=== PATIENT | female | born 1965 | race Caucasian/White ===

== ENCOUNTER → 2019-08-22 14:05 | Outpatient (BNVA) | payer SELFPAY | PROVIDERS: Family Provider Family Medicine; PCP Family Medicine; Visit Provider Family Medicine | DX: F41.8 Other specified anxiety disorders (principal); R19.7 Diarrhea, unspecified | CPT/HCPCS: 87493; G0328 ==

== ENCOUNTER → 2020-12-14 15:31 | Outpatient (BNVA) | payer MEDICARE, SELFPAY | PROVIDERS: Family Provider Family Medicine; PCP Family Medicine; Visit Provider Family Medicine | DX: J44.9 Chronic obstructive pulmonary disease, unspecified (principal); F41.8 Other specified anxiety disorders; R07.9 Chest pain, unspecified | CPT/HCPCS: 80053; 80061; 84439; 84443; 85025 ==

== ENCOUNTER → 2022-03-04 10:44 | Outpatient (BNVA) | payer MEDICARE, SELFPAY | PROVIDERS: Family Provider Family Medicine; PCP Family Medicine; Visit Provider Podiatrist Foot & Ankle Surgery | DX: L60.0 Ingrowing nail (principal) | CPT/HCPCS: 11721; 99203 ==

== ENCOUNTER 2022-07-06 06:00 | Outpatient (RCR) | payer MEDICARE, SELFPAY | END 2022-07-15 23:59 | disposition home or self-care (01) | LOC: GPT 06:00 | PROVIDERS: Family Provider Family Medicine; PCP Family Medicine; Visit Provider Family Medicine | DX: F45.41 Pain disorder exclusively related to psychological factors (principal) | CPT/HCPCS: 97110; 97140; 97162 ==

== ENCOUNTER → 2022-07-18 10:46 | Outpatient (BNVA) | payer MEDICARE, SELFPAY | PROVIDERS: Family Provider Family Medicine; PCP Family Medicine; Visit Provider Family Medicine | DX: J44.9 Chronic obstructive pulmonary disease, unspecified (principal); R07.9 Chest pain, unspecified | CPT/HCPCS: 80053; 80061; 85025 ==

== ENCOUNTER 2022-09-15 06:12 | Outpatient (CLI) | payer MEDICARE, SELFPAY ==
--- NOTE | 2022-09-15 06:30 | US_ITS ---
WS: [id number] Complete ABDOMINAL ULTRASOUND HISTORY: R74.8 - Abnormal levels of other serum enzymes COMPARISON: None available. Liver: 15.8 cm in length. Mild coarse echotexture. No mass or bile duct dilatation. Portal Vein: Normal hepatopetal flow with monophasic waveform. Gallbladder: Normally distended gallbladder with no stones or wall thickening. CBD: 0.3 cm Pancreas: Obscured by bowel gas. Right kidney: 10.0 cm x 4.6 x 4.9 cm. Cortex:0.9 cm. Normal size and echogenicity. No hydronephrosis or mass. Left kidney: 10.2 cm x 5.4 cm x 3.9 cm. Cortex: 1.1 cm. Normal size and echogenicity. No hydronephrosis or mass. Spleen: Normal size spleen. Aorta and IVC: Aorta and IVC are poorly visualized due to body habitus and patient short of breath. US/US abdomen complete* [id number] Impression: 1. Negative gallbladder. 2. Mild hepatic steatosis. 3. No renal obstruction. 4. Nonvisualization of the pancreas.
== END 2022-09-15 06:13 | disposition home or self-care (01) ==
PROVIDERS: PCP Family Medicine; Visit Provider Family Medicine
DX: R74.8 Abnormal levels of other serum enzymes (principal); K76.0 Fatty (change of) liver, not elsewhere classified
CPT/HCPCS: 76700

== ENCOUNTER → 2023-01-18 16:41 | Outpatient (BNVA) | payer MEDICARE, SELFPAY | PROVIDERS: PCP Family Medicine; Visit Provider Family Medicine | DX: K70.0 Alcoholic fatty liver (principal); R74.8 Abnormal levels of other serum enzymes; F41.8 Other specified anxiety disorders; J44.9 Chronic obstructive pulmonary disease, unspecified | CPT/HCPCS: 80053 ==

== ENCOUNTER → 2023-06-13 13:21 | Outpatient (BNVA) | payer MEDICARE, SELFPAY | PROVIDERS: PCP Family Medicine; Referring Provider Family Medicine; Visit Provider Internal Medicine | DX: R07.9 Chest pain, unspecified (principal); I25.10 Atherosclerotic heart disease of native coronary artery without angina pectoris; I73.9 Peripheral vascular disease, unspecified; J44.9 Chronic obstructive pulmonary disease, unspecified; F41.8 Other specified anxiety disorders; F17.200 Nicotine dependence, unspecified, uncomplicated; R94.31 Abnormal electrocardiogram [ECG] [EKG] | CPT/HCPCS: 93005; 99204 ==

== ENCOUNTER 2023-06-21 10:33 | Outpatient (CLI) | payer MEDICARE, SELFPAY ==
[2023-06-21 10:42] VITALS: BMI 28.1
--- NOTE | 2023-06-21 10:43 | ECG_ITS ---
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 Interpretive Statements NAME OF STUDY: LEXISCAN SESTAMIBI STRESS TEST INDICATION: [Chest Pain; CHF] Patient could not reach her target heart rate on treadmill and exercise MIBI was switched to Lexiscan. Procedure: At the baseline, the blood pressure was 121/67 mmHg with a heart rate of 75 bpm. The electrocardiogram showed normal sinus rhythm, normal axis with normal ST and T's. The Lexiscan was infused over a period of 20 seconds. A total of 0.4 mg of Lexiscan was infused. The stress phase was continued for a total of 5 minutes. Heart rate was at the end of stress phase was 86 bpm and a blood pressure of 123/66 mmHg. The EKG at the peak infusion revealed normal sinus rhythm with no significant ST-T wave changes. Sestamibi was injected 20 seconds after the Lexiscan infusion. Blood pressure at the end of recovery phase was 155/59 mmHg with a heart rate of 84 bpm. Conclusion: 1. Normal EKG response to Lexiscan infusion 2. No Lexiscan induced chest pain or cardiac arrhythmia. 3. Normal blood pressure and heart rate response. 4. Sestamibi/sestamibi perfusion scan pending; see separate report. Electronically Signed On 06-29-2023 11:02:33 CDT by Cole Prieto M.D. [email or web address]
--- NOTE | 2023-06-21 10:43 | NMCV_ITS ---
NM alexei perf SPECT r/s* [id number] Jesenia Ewing Age: 58 Gender: F : 1965 Exam Date: 06/21/2023 11:52 Ordering Phys: Cole Prieto M.D ([email or web address]) Technologist: PETE Bo Exam Location: [facility] Indications: SHORTNESS OF BREATH STRESS TEST Please see separate stress test report in [facility] for full findings IMAGE PROTOCOL Rest/Stress 1 Lexiscan Day Radiopharmaceutical Dose (mCi) Administration Site Administered by Rest: Tc-99m 10.7 IV PETE Castro Sestamibi Stress:Tc-99m 32.7 IV PETE Bo Sestamijori Rest: 21-Jun-2023 60 Discovery 630 Stress: 21-Jun-2023 30 Discovery 630 0.4mg Lexiscan. Images obtained in supine and prone position. SPECT RESULTS Technical Quality: Excellent Raw Data Analysis: Normal Image Corrections: No attenuation or motion correction applied Summed Stress Score: 10 Summed Rest Score: 6 Summed Difference Score: 4 PERFUSION FINDINGS There is large area of partially fixed, moderate intensity perfusion defect in the inferolateral wall. This is consistent with large sized area of prior infarct with significant anthony-infarct ischemia in the left circumflex artery territory. FUNCTIONAL RESULTS (calculated via Gated SPECT) Stress Image LV EF (%): 59 Stress EDV (mL):80 TID: 1.14 Stress ESV (mL):33 FUNCTIONAL FINDINGS: There is normal left ventricular systolic function. IMPRESSIONS 1. Abnormal myocardial perfusion defect large area of prior infarct with significant anthony-infarct ischemia in left circumflex artery territory. 2. LV systolic function is normal. Cole Prieto MD (Electronically Signed) Final Date: 21 June 2023 14:04 S
[2023-06-21] MEDS: regadenoson 0.4 Mg/5 ml Syringe 0.400000000000000022 MG IVP (12:53)
[2023-06-21 13:21] VITALS: BP 156/64; PULSE 65
--- NOTE | 2023-06-21 13:45 | USCV_ITS ---
Jesenia Ewing Age: 58 Gender: F : 1965 Exam Date: 06/21/2023 10:30 Ordering Phys: Cole Prieto M.D ([email or web address]) Technologist: NERIS [place]am [place] [facility] [place] Indication: Chest pain BP: 110 / 60 HR: 0 Rhythm: Sinus Technical Quality: Adequate MEASUREMENTS (Male / Female) Normal Values 2D ECHO LV Diastolic Diameter PLAX 3.7 cm 4.2 - 5.9 / 3.9 - 5.3 cm IVS Diastolic Thickness 1.2 cm 0.6 - 1.0 / 0.6 - 0.9 cm IVS Systolic Thickness 1.6 cm LVPW Diastolic Thickness 1.3 cm 0.6 - 1.0 / 0.6 - 0.9 cm LVPW Systolic Thickness 1.4 cm LVOT Diameter 2.0 cm LV Ejection Fraction 2D Teich 65.3 % LV Ejection Fraction MOD 2C 51.5 % LV Ejection Fraction 2C AL 52.1 % LA Diameter 3.3 cm Aorta at Sinotubular Diameter 2.8 cm IVC Diameter 1.6 cm DOPPLER AV Peak Velocity 124.0 cm/s LVOT Peak Velocity 92.0 cm/s AV Area Cont Eq vti 2.2 cm squared AV Area Cont Eq pk 2.4 cm squared MV Peak Velocity 87.0 cm/s MV Area PHT 4.1 cm squared Mitral E to A Ratio 0.8 TR Peak Velocity 130.0 cm/s TR Peak Gradient 6.8 mmHg TV Peak E Velocity 88.0 cm/s Right Atrial Pressure 3.0 mmHg Pulmonary Artery Systolic Pressu 9.8 mmHg PV Peak Velocity 79.0 cm/s FINDINGS Left Ventricle Left ventricle is normal in size. LV systolic function is normal with EF of 55-60%. No regional wall motion abnormalities are seen. Grade 1 diastolic dysfunction. Right Ventricle Normal in size and function Right Atrium Normal in size Left Atrium Normal in size Mitral Valve Structurally normal mitral valve. Trace mitral regurgitation. Aortic Valve Structurally normal aortic valve. No significant stenosis or regurgitation. Tricuspid Valve Mild tricuspid regurgitation. Insufficient TR jet to evaluate RVSP. Pulmonic Valve Not well visualized Pericardium Normal Aorta Normal in size IVC Appears to be normal CONCLUSIONS LV systolic function is normal with EF of 55-60% Grade 1 diastolic dysfunction Trace mitral regurgitation Mild tricuspid regurgitation No comparison studies are available. Cole Prieto MD (Electronically Signed) Final Date: 05 July 2023 12:42 S
== END 2023-06-21 10:34 | disposition home or self-care (01) ==
PROVIDERS: PCP Family Medicine; Visit Provider Internal Medicine
DX: R06.02 Shortness of breath (principal)
CPT/HCPCS: 36415; 78452; 93017; 93306; 96374; A9500; J2785

== ENCOUNTER 2023-07-03 05:41 | Outpatient (CLI) | payer MEDICARE, SELFPAY ==
--- NOTE | 2023-07-03 06:00 | XACV_ITS ---
Exam Room: 2 Ht: 160 cm Wt: 71 kg BSA: 1.80 m2 Gender: Female : 1965 Any Known Allergies: Other Exam Priority: Routine Procedure(s): Procedure Description: Diagnostic procedure Procedure Description: Left Heart Catheterization Procedure Description: Left ventriculography Procedure Description: Coronary Angiography Diagnostic Cath Status: Elective Diagnostic Findings * INDICATION: Worsening angina/ abnormal stress test. * Left Main: Severe distal 70% stenosis before bifurcation, DENNIS: 3 flow. * Circumflex has patent prior stent in mid segment. Medium sized OM 2 has severe ostial 70-80% stenosis. * Right Coronary Artery is a small sized, nondominant vessel with a diffuse disease.. * Proximal Left Anterior Descending: obstructive 60-70% stenosis, DENNIS: 3 flow. * Coronary angiography shows left dominance. Conclusions 1. Severe multivessel coronary artery disease including 2. severe distal left main artery stenosis 3. , 4. severe OM 2 stenosis 5. and 6. moderate to severe proximal LAD stenosis.. 7. Normal left ventricular systolic function. Ejection fraction of 55%. Recommendations * We will refer patient for CABG evaluation. * Outpatient cardiology follow up in 2-4 weeks. Interventional RX Recommendation: CABG Diagnostic RX Recommendation: CABG Anticoagulation: Heparin Ventriculography Ejection Fraction: 55.0 % Pressures Phase:Rest AO : 86 / 60 ( 73 ) @ 9:16:00 AM 84 / 55 ( 68 ) @ 9:18:00 AM 111 / 62 ( 82 ) @ 9:23:00 AM 107 / 56 ( 79 ) @ 9:23:00 AM LV : @ 9:22:00 AM 105 / @ 9:23:00 AM 106 @ 9:23:00 AM Valves Phase:DefaultPhase AV : 0.0 @ 8:29:57 AM 0.0 @ 8:29:57 AM AV Mean Gradient: 0.0 @ 8:29:57 AM 0.0 @ 8:29:57 AM Clinical Evaluation EBL: 5mL-10mL Procedural Details Pre-Procedure Time Out. Identified patient by full name and date of as verbalized by the patient/guarantor. Does the consent match the physician's order: Yes. Accurate & Complete Informed Consent: Yes. Inpatient/Outpatient History & Physical on Chart: Yes. If H&P is completed, is and addenduem needed: No; If yes, is the addendum complete: N/A. Visualize and Verify Site with Patient/Guarantor: N/A. Relevant Radiology Images available: Yes. Pre-op teaching completed and patient verbalized understanding. The risks, benefits, and alternatives of sedation and/or procedure were discussed by physician. The patient agrees to continue. Procedure started. [facility] Clinical Fraility Score: 5: Mildly Frail. Polysom Tech Indications: Worsening Angina. Chest Pain Symptom Assessment: Atypical Angina. Correct patient, site and procedure confirmed by cath team. Current diagnosis: Chest Pain. PERRLA. Strong, equal hand silo painter bilaterally. Lungs clear x 5 lobes. IV Site on Arrival: 20 gauge in the left anticubital. IV Fluids: 0.9% NaCl at KVO. 0 mL infused prior to cathode ray tube salvage processor. Physician arrived. Pre Procedural Pulses: right dorsalis pedis was Doppled. Pre Procedural Pulses: left dorsalis pedis was 1+. Pre Procedural Pulses: right posterior tibial was 2+. Pre Procedural Pulses: left posterior tibial was Doppled. Pre Procedural Pulses: bilateral radial was 2+. Oxygen started at 2liters/min via nasal canula. right groin was prepped with chloroprep then draped in the usual sterile fashion. right radial was prepped with chloroprep then draped in the usual sterile fashion. Baseline sample Acquired. HR: 0 BPM. Current Diagnosis : Chest Pain. Physician scrubbed in. Immediate Pre-Procedure Time Out. Correct Patient: Yes; Correct Procedure: Yes; Correct Site: Yes; Correct Patient Position: Yes; Correct Supplies: Yes; Dried Flammable Prep: Yes; Blood Products Available: N/A;. Lidocaine 1% infiltrated to the right radial. Ultrasound being used to obtain arterial access. Arterial access obtained. A 5 fijian TIG catheter in over wire. Catheter redirected to the RCA. Multiple views taken of right coronary artery. Catheter removed over the exchange wire. A 5 fijian Angled Pig catheter in over wire. EDP Sample taken: LV 111/10,21; HR: 59 BPM; SpO2: 95%. LV gram performed in GOMES @ 10 mL/second for a total of 30 mL. EDP Sample taken: LV 105/12,23; HR: 60 BPM; SpO2: 95%. Pullback taken: LV 106/11,23; AO 111/62(82); Mean: 0mmHg, Peak to Peak: 0mmHg, SEP: 5sec/min; HR: 60 BPM; SpO2: 95%. Catheter removed over the exchange wire. Physician review of cine films. A TR Band was successful obtaining hemostatsis at the Right Radial artery insertion site. Vital chart was stopped. Post Procedure: Pulses reassessed and unchanged. PERRLA. Strong, equal hand silo painter bilaterally. No VTE prophylaxis required. Medication's Wasted: Nitro = 49.8 mg. Medication's Wasted: Heparin = 1000 units. Medication's Wasted: Other = Fentanyl 50 mg. Total IV fluids: 30 mL. Post-op diagnosis: CAD. Complications: None. Estimated blood loss: 5mL-10mL. Responsiveness - Normal response to verbal stimuli; alert and oriented, PERRLA. Airway - Unaffected, no intervention required; spontaneous ventilation. Circulation: W/N/L, pulses unchanged. Nausea/Vomiting: No. Procedure completed. Patient transferred by wheelchair to CPRU. Access Site Site: Right Radial artery Sheath Size: 6 Fr Hemostasis Method: TR Band Hemostasis Success: Successful Procedure Medications Start: 8:04 AM Stop: 8:04 AM Medication: Versed 1 mg and Fentanyl 25 mcg Amount: 1 Route: I.V. Start: 8:13 AM Stop: 8:13 AM Medication: Versed 1 mg and Fentanyl 25 mcg Amount: 1 Route: I.V. Start: 8:13 AM Stop: 8:13 AM Medication: Nitrogylcerin Amount: 200 mcg Route: I.A. Start: 8:15 AM Stop: 8:15 AM Medication: Heparin Amount: 5000 units Route: I.V. I, the attending physician, have reviewed and verified all procedure medications. Yes, all medications given per verbal order History/Risk Factors Hypertension: Yes Dyslipidemia: Yes Peripheral Arterial Disease (PAD): Yes Myocardial Infarction (ND): Yes Obesity: No Renal Disease: No Tobacco Use: Current/Recent(w/in 1 year) Prior Interventions PCI: Yes CABG: No Valve Surgery: No Report Signatures Finalized by Cole Prieto MD on 07/06/2023 11:52 AM
[2023-07-03] MEDS: diphenhydrAMINE 50 mg Capsule PO (06:06)
[2023-07-03] MEDS: aspirin 325 mg Tablet PO (06:06)
[2023-07-03 06:18] LABS: Basophils % 0.3 %; Eosinophils # 0.2 10^3/uL (0.0-0.8); Hematocrit 44.9 % (36-47); Lymphocytes # 1.9 10^3/uL (0.8-4.8); Lymphocytes % 17.1 %; Mean Corpuscular HGB Conc 31.2 g/dL (30-55); Mean Corpuscular Hemoglobin 29.8 pg (27-33); Mean Corpuscular Volume 95.5 fl (85-98); Monocytes # 0.6 10^3/uL (0.2-0.9); Monocytes % 5.5 %; Neutrophils # 8.36 10^3/uL (1.8-7.7); Neutrophils % 74.7 %; Nucleated Red Blood Cells % 0 %; Platelet Count 343 10^3/cmm (157-399); Red Cell Distribution Width 13.2 % (12.1-15.1); White Blood Count 11.18 10^3/uL (3.29-11.43)
[2023-07-03 06:24] VITALS: BP 157/90; PULSE 70; RESP 22; TEMP 37.1; O2SAT 94; BMI 27.8
[2023-07-03 06:42] LABS: Blood Urea Nitrogen 21 mg/dL (8-23); Calcium 9.1 mg/dL (8.5-10.5); Carbon Dioxide 30 mmol/L (22-29); Chloride 98 mmol/L (98-107); Glomerular Filtration Rate 85.4 mL/min (90-130); Glucose 98 mg/dL (65-115); Osmolality Calculated 285 mOsm/kg (285-295); Sodium 136 mmol/L (136-145)
--- NOTE | 2023-07-03 08:03 | W.PM.OPSUD ---
Surgery/Procedure H&P Update DATE OF PROCEDURE: July 03, 2023 DATE H&P PERFORMED: 06/13/23 H&P UPDATE INFORMATION: I have reviewed H&P completed within last 30 days, I have examined patient prior to procedure and Changes to prior documentation as noted here CHANGES TO PREVIOUS DOCUMENTATION: Patient underwent stress test for evaluation of ischemia. She was found to have prior infarct with significant anthony-infarct ischemia and left circumflex artery territory. This is the same artery that had stent placed several years ago. Given her typical, worsening chest discomfort episodes and stress test abnormality, plan for coronary angiogram with possible percutaneous coronary intervention. PREOP DIAGNOSIS: Chest pain/ abnormal stress test PRIMARY INDICATION FOR PROCEDURE: Chest pain/ abnormal stress test PLANNED PROCEDURE: Operation Date: 07/03/23 07:00 Proposed Procedures p [facility] [address]361,R94.39, R07.9(Left) - Cole Prieto M.D Possible percutaneous coronary intervention PATIENT REASSESSED PRIOR TO SEDATION, WITH NO CHANGE NOTED: Yes PHYSICAL EXAM: alert, oriented x 3, clear to auscultation bilaterally and regular rate & rhythm AIRWAY EVAL/ANESTHESIA PLAN: normal airway, ASA III, Local Anesthesia, Risks, benefits & alternatives of sedation and/or procedure discussed and Patient agrees to continue as planned
--- NOTE | 2023-07-03 08:35 | SUR.PHASEI ---
IMMEDIATE RECOVERY NOTE Received patient from receiver/laborer. Status post cardiac catheterization via the right radial approach. TR Band in place. Site is hemostatic- 12 ml in the band. Verbal post cath instuctions went over upon arrival. at bedside. They understood instuctions well. MD at bedside to discuss findings. Call light within reach. Informed to call for needs.
[2023-07-03 08:42] VITALS: PULSE 61; RESP 21; O2SAT 99
[2023-07-03 08:45] VITALS: BP 129/92; PULSE 57; RESP 15; O2SAT 99
[2023-07-03 09:00] VITALS: BP 121/73; PULSE 60; RESP 18; O2SAT 97
--- NOTE | 2023-07-03 09:48 | PC.NURSE ---
received from cardiac labor relations officer at 0935 via w/c.report received.pt is alert and oriented x 4.denies pain at present.sr/sb on monitor.right radial tr band on and inflated.right hand is warm to touch and with brisk capillary refill.no hematoma noted.palpable radial pulse noted distal to tr band.pt instructed in activity restrictions s/p radial artery procedure...and instructed to notify staff for any bleeding,pain,numbness or for any concerns at all.pt verb understanding of instructions
[2023-07-03 11:47] VITALS: BP 121/73; PULSE 60; RESP 18; O2SAT 97
--- NOTE | 2023-07-03 12:36 | PC.NURSE ---
tr band gradually deflated and removed at 1200.no hematoma noted.site dressed with 2x2 gauze and secured with biocclusive drsg.pt instructed in activity restrictions s/p tr band removal...and instructed to notify staff for any bleeding,pain,numbness or for any concerns at all.pt verb understanding of instructions.
--- NOTE | 2023-07-03 12:41 | PC.NURSE ---
discharge instructions given and explained.pt verb understanding of instructions.discharged ambulatory to exit..spouse to drive pt home.
== END 2023-07-03 12:44 | disposition home or self-care (01) ==
LOC: CCL 05:45 → CSU 09:28
PROVIDERS: PCP Family Medicine; Visit Provider Internal Medicine
DX: I25.10 Atherosclerotic heart disease of native coronary artery without angina pectoris (principal); I10 Essential (primary) hypertension; E78.5 Hyperlipidemia, unspecified; I73.9 Peripheral vascular disease, unspecified; J44.9 Chronic obstructive pulmonary disease, unspecified; F41.8 Other specified anxiety disorders
CPT/HCPCS: 36415; 80048; 85025; 93458; 96361; 96365; 99152; 99153; C1769; C1887; C1894; J1644; J2250; J3010; J3490; J7030; Q0163; Q9967

== ENCOUNTER → 2023-07-19 13:46 | Outpatient (BNVA) | payer MEDICARE, SELFPAY | PROVIDERS: PCP Family Medicine; Visit Provider Nurse Practitioner Family | DX: I25.118 Atherosclerotic heart disease of native coronary artery with other forms of angina pectoris (principal); F17.210 Nicotine dependence, cigarettes, uncomplicated | CPT/HCPCS: 36415; 80048; 99214 ==

== ENCOUNTER → 2023-08-24 12:11 | Outpatient (BNVA) | payer MEDICARE, SELFPAY | PROVIDERS: PCP Family Medicine; Visit Provider Internal Medicine | DX: R07.9 Chest pain, unspecified (principal); I25.10 Atherosclerotic heart disease of native coronary artery without angina pectoris; I73.9 Peripheral vascular disease, unspecified; J44.9 Chronic obstructive pulmonary disease, unspecified; F41.8 Other specified anxiety disorders; Z87.891 Personal history of nicotine dependence | CPT/HCPCS: 99214 ==

== ENCOUNTER 2023-10-17 12:03 | Outpatient (CLI) | payer MEDICARE, SELFPAY ==
--- NOTE | 2023-10-17 12:00 | USCV_ITS ---
Gildardo Jesenia Age: 58 Gender: F : 1965 Exam Date: 10/17/2023 12:05 Ordering Phys: Ronald Alford DO Technologist: USR Exam Location: [facility] [place] Indication: DIZZINESS Risk Factors: Previous Vascular Surgery: Right Brachial BP: / Left Brachial BP: / Right Left Velocity (cm/s) Spectral Plaque Velocity (cm/s) Spectral Plaque Syst/Diast Broadening Syst/Diast Broadening 98.90/ 28.00 Prox CCA 133.20/ 33.20 73.20/ 19.40 Mid CCA 82.80 / 29.60 65.90/ 18.20 Distal CCA 79.20 / 24.50 57.70/ 20.10 Prox ICA 88.50 / 27.30 65.40/ 22.10 Mid ICA 68.80 / 26.50 74.80/ 21.10 Distal ICA 65.40 / 27.40 50.80 ECA 77.10 1.10 ICA/CCA 1.10 Antegrade Vertebral Antegrade 46.40/ 21.50 cm/s 63.10/ 24.10 cm/s Tri Subclavian Tri 94.30 96.80 CONCLUSIONS Right ICA stenosis <50%. Mild atheromatous plaque right carotid bulb/ICA. Left ICA stenosis <50%. Mild atheromatous plaque left carotid bulb/ICA. Normal antegrade Doppler flow noted in the right vertebral artery. Normal antegrade Doppler flow noted in the left vertebral artery. Derick Valdes MD (Electronically Signed) Final Date: 18 October 2023 09:02 S
[2023-10-17 13:05] VITALS: PULSE 80; RESP 18; O2SAT 93
[2023-10-17] MEDS: albuterol 2.5 mg/3 mL Neb INHALATION (13:05)
[2023-10-17 13:09] VITALS: PULSE 82
== END 2023-10-17 12:04 | disposition home or self-care (01) ==
LOC: RAD 12:03
PROVIDERS: PCP Family Medicine; Visit Provider Family Medicine
DX: I25.118 Atherosclerotic heart disease of native coronary artery with other forms of angina pectoris (principal); I73.9 Peripheral vascular disease, unspecified; R07.9 Chest pain, unspecified
CPT/HCPCS: 93880; 94060; 94726; 94729; J7613

== ENCOUNTER 2024-05-28 15:04 | Outpatient (CLI) | payer MEDICARE, SELFPAY ==
--- NOTE | 2024-05-28 12:30 | CT_ITS ---
WS: [id number] CT CHEST TECHNIQUE: Noncontrast CT of the chest with coronal and sagittal reformatted images. CLINICAL INFORMATION: J96.01 - Acute respiratory failure with hypoxia COMPARISON: None. DLP: 380.[address] scans at [facility] use at least one of these dose optimization techniques: automated exposure control; mA and/or kV adjustment per patient size (includes targeted exams where dose is matched to clinical indication); or iterative reconstruction. FINDINGS: Moderate chronic emphysematous changes. Mild hyperinflation. Normal caliber thoracic aorta. Aortic calcification. Coronary calcification. Dense LEFT main LAD and circumflex calcification. No acute pulmonary infiltrates. No focal pneumonia or pleural fluid. No mediastinal or hilar lymphadenopathy. No axillary lymphadenopathy. Adrenal glands are normal. Normal GE junction. CT/CT chest wo con [id number] IMPRESSION: 1. Dense coronary calcification worse involving the LEFT main, circumflex and LAD. Recommend cardiology consultation 2. Moderate chronic emphysematous changes. No acute pulmonary infiltrates. 3. No focal pneumonia or pleural fluid. 4. No mediastinal or hilar lymphadenopathy. No axillary lymphadenopathy. 5. Adrenal glands are normal. 6. No other acute findings.
== END 2024-05-28 15:05 | disposition home or self-care (01) ==
PROVIDERS: PCP Family Medicine; Visit Provider Family Medicine
DX: R06.09 Other forms of dyspnea (principal); R09.89 Other specified symptoms and signs involving the circulatory and respiratory systems; I95.9 Hypotension, unspecified; I25.10 Atherosclerotic heart disease of native coronary artery without angina pectoris; J43.8 Other emphysema; R91.8 Other nonspecific abnormal finding of lung field; I70.0 Atherosclerosis of aorta
CPT/HCPCS: 71250

== ENCOUNTER → 2024-06-11 11:00 | Outpatient (BNVA) | payer MEDICARE, SELFPAY | PROVIDERS: PCP Family Medicine; Visit Provider Family Medicine | DX: R79.89 Other specified abnormal findings of blood chemistry (principal); I10 Essential (primary) hypertension; I25.118 Atherosclerotic heart disease of native coronary artery with other forms of angina pectoris; J96.11 Chronic respiratory failure with hypoxia; G44.229 Chronic tension-type headache, not intractable; J44.9 Chronic obstructive pulmonary disease, unspecified; G47.00 Insomnia, unspecified; R74.8 Abnormal levels of other serum enzymes; F41.8 Other specified anxiety disorders; E55.9 Vitamin D deficiency, unspecified | CPT/HCPCS: 80053; 80061; 82306; 82607; 82728; 82746; 83550; 83735; 84439; 84443; 84550; 85025; 85651; 86140; 86431 ==

== ENCOUNTER → 2024-06-26 14:51 | Outpatient (BNVA) | payer MEDICARE, SELFPAY | PROVIDERS: PCP Family Medicine; Visit Provider Internal Medicine | DX: I25.10 Atherosclerotic heart disease of native coronary artery without angina pectoris (principal); I73.9 Peripheral vascular disease, unspecified; J44.9 Chronic obstructive pulmonary disease, unspecified; F41.8 Other specified anxiety disorders; Z87.891 Personal history of nicotine dependence | CPT/HCPCS: 99214 ==

== ENCOUNTER 2024-07-29 06:55 | Outpatient (CLI) | payer MEDICARE, SELFPAY ==
--- NOTE | 2024-07-29 07:00 | USCV_ITS ---
Jesenia Ewing Age: 59 Gender: F : 1965 Exam Date: 07/29/2024 07:25 Ordering Phys: Cole Prieto M.D ([email or web address]) Technologist: NERIS Exam [place] [facility] [place] Indication: CP, SoB BP: 117 / 76 HR: 71 Rhythm: Sinus Technical Quality: Adequate MEASUREMENTS (Male / Female) Normal Values 2D ECHO LV Diastolic Diameter PLAX 5.2 cm 4.2 - 5.9 / 3.9 - 5.3 cm IVS Diastolic Thickness 1.2 cm 0.6 - 1.0 / 0.6 - 0.9 cm IVS Systolic Thickness 2.2 cm LVPW Diastolic Thickness 1.1 cm 0.6 - 1.0 / 0.6 - 0.9 cm LVPW Systolic Thickness 1.5 cm LVOT Diameter 1.9 cm LV Ejection Fraction 2D Teich 65.0 % LV Ejection Fraction MOD 4C 53.4 % LV Ejection Fraction MOD 2C 63.0 % LV Ejection Fraction 2C AL 64.0 % LA Diameter 3.3 cm RA Systolic Volume 4C AL 31.7 ml RA Systolic Volume 4C MOD 31.2 ml LA Sys Volume AL 31.3 cm cubed LA Sys Volume Index AL 17.5 cm cubed/m squared Aorta at Sinotubular Diameter 2.3 cm IVC Diameter 2.1 cm M-MODE LA Ao Ratio MM 1.3 AV Cusp Separation MM 1.7 cm DOPPLER AV Peak Velocity 133.0 cm/s LVOT Peak Velocity 98.0 cm/s AV Area Cont Eq vti 2.3 cm squared AV Area Cont Eq pk 2.1 cm squared MV Peak Velocity 99.0 cm/s MV Area PHT 3.4 cm squared Mitral E to A Ratio 0.9 TR Peak Velocity 95.0 cm/s TR Peak Gradient 3.6 mmHg TV Peak E Velocity 79.0 cm/s PV Peak Velocity 79.0 cm/s FINDINGS Left Ventricle Left ventricle is normal in size. LV systolic function is normal with EF of 55-60%. Mild hypokinesis of inferolateral wall. Grade 1 diastolic dysfunction Right Ventricle Normal in size and function Right Atrium Normal in size Left Atrium Normal in size Mitral Valve Structurally normal mitral valve. Mild mitral regurgitation Aortic Valve Structurally normal aortic valve. No significant stenosis or regurgitation. Tricuspid Valve Insufficient TR jet to calculate RVSP Pulmonic Valve Not well visualized Pericardium Normal Aorta Normal in size IVC Not well visualized CONCLUSIONS LV systolic function is normal with EF of 55-60%. Grade 1 diastolic dysfunction. Mild mitral regurgitation. Compared to prior echocardiogram from 2023, there is mild hypokinesis of inferolateral wall. Cole Prieto MD (Electronically Signed) Final Date: 06 August 2024 09:30 S
== END 2024-07-29 06:56 | disposition home or self-care (01) ==
PROVIDERS: PCP Family Medicine; Visit Provider Internal Medicine
DX: R07.9 Chest pain, unspecified (principal); R06.02 Shortness of breath; R93.1 Abnormal findings on diagnostic imaging of heart and coronary circulation; I34.0 Nonrheumatic mitral (valve) insufficiency
CPT/HCPCS: 93306

== ENCOUNTER → 2024-08-08 13:30 | Outpatient (BNVA) | payer MEDICARE, SELFPAY | PROVIDERS: PCP Family Medicine; Visit Provider Family Medicine | DX: D72.829 Elevated white blood cell count, unspecified (principal); D75.1 Secondary polycythemia; R79.89 Other specified abnormal findings of blood chemistry; E83.41 Hypermagnesemia | CPT/HCPCS: 80053; 83735; 85025 ==

== ENCOUNTER → 2024-08-12 14:24 | Outpatient (BNVA) | payer MEDICARE, SELFPAY | PROVIDERS: PCP Family Medicine; Visit Provider Internal Medicine | DX: R07.9 Chest pain, unspecified (principal); I25.10 Atherosclerotic heart disease of native coronary artery without angina pectoris; I73.9 Peripheral vascular disease, unspecified; J44.9 Chronic obstructive pulmonary disease, unspecified; F17.210 Nicotine dependence, cigarettes, uncomplicated | CPT/HCPCS: 99214 ==

== ENCOUNTER 2024-08-18 05:59 | Inpatient (IN) | payer MEDICARE, SELFPAY ==
[2024-08-18] VITALS (45 sets, daily range): BP systolic 85–152; BP diastolic 42–78; PULSE 50–94; RESP 14–27; TEMP 36.1–36.6; O2SAT 82–100; BMI 29.2
--- NOTE | 2024-08-18 06:12 | XRR_ITS ---
PROCEDURE INFORMATION: Exam: XR Chest Exam date and time: 08/18/2024 6:39 AM Age: 59 years old Clinical indication: Cough and dyspnea; Prior surgery; Surgery date: 6+ months; Surgery type: Stents; Additional info: Dyspnea/cough TECHNIQUE: Imaging protocol: Radiologic exam of the chest. Views: 1 view. COMPARISON: CT chest con [id number] 05/28/2024 3:10 PM FINDINGS: Lungs: Mild atelectasis or infiltrate laterally at the right lung base. Pleural spaces: Unremarkable. No pleural effusion. No pneumothorax. Heart/Mediastinum: Unremarkable. No cardiomegaly. Bones/joints: Unremarkable. XR/XR chest 1V portable [id number] IMPRESSION: Mild opacity at the lateral right lung base.
--- NOTE | 2024-08-18 06:14 | ECG_ITS ---
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 Measurements Intervals [place] Rate: 75 P: 72 MD: 142 QRS: 59 QRSD: 92 T: 72 QT: 364 QTc: 409 Interpretive Statements SINUS RHYTHM Compared to ECG 06/13/2023 13:29:35 Myocardial infarct finding no longer present Electronically Signed On 08-19-2024 09:17:42 CDT by Cole Prieot M.D. [email or web address]
--- NOTE | 2024-08-18 06:14 | W.ED.SOB ---
HPI - SOB/Dyspnea General: Chief Complaint: Shortness of Breath/Dyspnea Stated Complaint: SOB Time Seen by Provider: 08/18/24 06:04 History of Present Illness: HPI Narrative: 59-year-old female presents to the emergency room with complaints of shortness of breath. Patient was found at the bedside with report of O2 sats at 83% given DuoNebs dexamethasone en route she is improved per her report on arrival here. He is initially on 5 L he was turned down to 4 L when I seen her she denies any chest pain or discomfort no hemoptysis. No abdominal pain she is scheduled for right and left heart cath tomorrow with Dr. Rojas. Patient has a known history of coronary artery disease and peripheral artery disease.. Last year patient had a angiogram in the old with intervention of the left main LAD and left circumflex. She has been recording increasing symptoms recently and is scheduled for a Dr. Prieto for the heart cath Associated symptoms: Reports chest congestion; Deny abdominal pain, chest pain or fever(s) Related Data Home Medications ?Medication ?Instructions ?Recorded ?Confirmed buspirone 15 mg tablet 15 mg PO BID 08/16/24 08/18/24 clopidogrel 75 mg tablet 75 mg PO DAILY 08/16/24 08/18/24 sertraline 100 mg tablet 100 mg PO DAILY 08/16/24 08/18/24 otsobaoaru-pxshewohupopf-bwlppbve 1 tab PO TID 08/18/24 08/18/24 50 mg-325 mg-40 mg tablet Previous Rx's ?Medication ?Instructions ?Recorded albuterol sulfate 90 mcg/actuation 2 puff inhalation Q6H PRN 11/16/23 aerosol inhaler bronchospasm #6.7 grams montelukast 10 mg tablet 10 mg PO DAILY #90 tabs 05/28/24 (Singulair) alprazolam 1 mg tablet 1 mg PO DAILY PRN anxiety #30 tabs 08/08/24 atorvastatin 40 mg tablet 40 mg PO DAILY #90 tabs 08/08/24 carvedilol 12.5 mg tablet 12.5 mg PO BID #180 tabs 08/08/24 Allergies Allergy/AdvReac Type Severity Reaction Status Date / Time bupropion (From Zyban) Allergy Intermediate rash Verified 08/12/24 14:55 influenza virus vaccine qs Allergy Intermediate swelling Verified 08/12/24 14:55 [id number] (36 mos, up) (From Fluarix Quad) rofecoxib (From Vioxx) Allergy Intermediate rash Verified 08/12/24 14:55 Review of Systems Const: Denies: fever(s) or chills Card: Denies: chest pain Resp: Reports: dyspnea, non-productive cough, wheezing and chest congestion GI: Denies: abdominal pain : Denies: dysuria, urinary frequency or urinary urgency Musc: Denies: neck pain or back pain Skin/Breast: Denies: rash PFSH ED PFSH: Medical History Coronary artery disease Peripheral arterial disease Insomnia Fatty liver COPD (chronic obstructive pulmonary disease) Anxiety associated with depression Surgical History History of coronary artery stent placement History of appendectomy H/O abdominal hysterectomy Social History Smoking and tobacco/nicotine status: former use of tobacco/nicotine (Quit 07/25/24) Quit status (tobacco/nicotine): has quit using Year quit tobacco: 2023 Former quit date comment: 07/26/23 Alcohol intake: former Female Reproductive History: Spontaneous abortions: No Physical Exam Const: GENERAL APPEARANCE: cooperative ORIENTATION/CONSCIOUSNESS: Yes awake, Yes oriented to person, Yes oriented to place and Yes oriented to time HENMT: COMMON NORMALS: normocephalic, atraumatic and hearing grossly normal bilaterally HEAD & SCALP: normocephalic and atraumatic Resp: COMMON NORMALS: normal respiratory effort, No retractions, No use of accessory muscles and clear to auscultation bilaterally AUSCULTATION: clear to auscultation bilaterally Cardio: COMMON NORMALS: regular rate, regular rhythm and No murmurs present (Cardio) RATE: regular rate RHYTHM: regular rhythm GI: COMMON NORMALS: Soft to palpation and No hepatosplenomegaly present AUSCULTATION: Yes normoactive bowel sounds PALPATION: Yes Soft to palpation, No Tenderness to palpation present (GI), No Guarding due to palpation present (GI) and Yes No hepatosplenomegaly present Extremity: COMMON NORMALS: normal to inspection, capillary refill normal, no clubbing, cyanosis or edema, no calf tenderness and no pedal edema Neuro: SENSORIUM/ORIENTATION: Yes oriented to person, Yes oriented to place and Yes oriented to time Skin: COMMON NORMALS: no rashes or lesions noted GENERAL SKIN EXAM: no rashes or lesions noted Course Vital Signs: Vital signs: Vital Signs Temperature 98.2 F 08/19/24 05:55 Pulse Rate 72 08/19/24 10:00 Respiratory Rate 22 H 08/19/24 10:00 Blood Pressure 125/60 08/19/24 10:00 Pulse Oximetry 94 08/19/24 10:00 Oxygen Delivery Me thod Nasal Cannula 08/19/24 08:00 Oxygen Flow Rate 2 08/19/24 08:00 Fraction of Inspir ed Oxygen 35 08/18/24 15:14 MDM - SOB/Dyspnea Medical Decision Making Community-acquired pneumonia along with acute exacerbation COPD. Patient does have some hypercapnia initially as well she improved with BiPAP blood gas reviewed other labs and imaging reviewed as found in the chart EKGs reviewed as well. Discussed with hospitalist will admit aggressive pulmonary toilet continue BiPAP nebulizers IV antibiotics. Orders written for admission Medical Records I reviewed the patient's medical records. Lab Data I reviewed the patient's lab results. 08/19/24 04:46 08/19/24 04:46 Labs/Radiology: Radiology Impressions Chest X-Ray 08/18/24 06:12 IMPRESSION: Mild opacity at the lateral right lung base. Laboratory Results WBC 13.09 10^3/uL (3.29-11.43) H 08/18/24 06:41 RBC 4.46 10^6/uL (3.85-5.65) 08/18/24 06:41 Hgb 12.80 g/dL (11.27-16.99) 08/18/24 06:41 Hct 42.4 % (36-47) 08/18/24 06:41 MCV 95.1 fl (85-98) 08/18/24 06:41 MCH 28.7 pg (27-33) 08/18/24 06:41 MCHC 30.2 g/dL (30-55) 08/18/24 06:41 RDW 14.5 % (12.1-15.1) 08/18/24 06:41 Plt Count 310 10^3/cmm (157-399) 08/18/24 06:41 MPV 8.3 fL (7.4-10.4) 08/18/24 06:41 Neut % (Auto) 88.2 % 08/18/24 06:41 Lymph % (Auto) 6.6 % 08/18/24 06:41 [place] % (Auto) 2.8 % 08/18/24 06:41 Eos % (Auto) 1.8 % 08/18/24 06:41 Baso % (Auto) 0.2 % 08/18/24 06:41 Neut # (Auto) 11.54 10^3/uL (1.8-7.7) H 08/18/24 06:41 Lymph # (Auto) 0.9 10^3/uL (0.8-4.8) 08/18/24 06:41 [place] # (Auto) 0.4 10^3/uL (0.2-0.9) 08/18/24 06:41 Eos # (Auto) 0.2 10^3/uL (0.0-0.8) 08/18/24 06:41 Baso # (Auto) 0.0 10^3/uL (0.0-0.1) 08/18/24 06:41 Nucleated RBC % (auto) 0 % 08/18/24 06:41 Nucleated RBCs # 0.0 /100WBC 08/18/24 06:41 D-Dimer <= 0.27 ug/mLFEU (0-0.59) 08/18/24 06:41 Specimen Type Arterial 08/18/24 06:22 Sample Site Radial, right 08/18/24 06:22 ABG pH 7.26 (7.35-7.45) L 08/18/24 06:22 ABG pCO2 84.0 mmHg (35-45) H* 08/18/24 06:22 ABG pO2 71.8 mmHg (80.0-100.0) L 08/18/24 06:22 ABG PO2/FiO2 Ratio 199 08/18/24 06:22 ABG HCO3 37.5 mmol/L (22-26) H 08/18/24 06:22 ABG O2 Saturation 93.5 08/18/24 06:22 ABG Base Excess 7.3 mmol/L (-2.0-2.0) H 08/18/24 06:22 Matty Test Pos 08/18/24 06:22 A-a O2 Gradient 11.0 mmHg (5-10) H 08/18/24 06:22 Hematocrit 40.1 % (37-47) 08/18/24 06:22 Hgb O2 Saturation 91.2 % (95-100) L 08/18/24 06:22 Carboxyhemoglobin 1.6 %THgb (0.4-20.1) 08/18/24 06:22 Methemoglobin 0.9 % (0.4-1.5) 08/18/24 06:22 Total Hemoglobin 13.1 g/dL (12-16) 08/18/24 06:22 Sodium 142.0 mmol/L (131-143) 08/18/24 06:22 Potassium 4.1 mmol/L (3.5-5.0) 08/18/24 06:22 Glucose 126.0 mg/dL (70-115) H 08/18/24 06:22 Ionized Calcium 1.2 mmol/L (1.1-1.4) 08/18/24 06:22 O2 Delivery Device Nc 08/18/24 06:22 O2 Liters/Min 4.0 % 08/18/24 06:22 FiO2 36.0 % 08/18/24 06:22 Store Keeper ID [email or web address] 08/18/24 06:22 Sodium 144 mmol/L (136-145) 08/18/24 06:41 Potassium 4.5 mmol/L (3.5-5.1) 08/18/24 06:41 Chloride 100 mmol/L (98-107) 08/18/24 06:41 Carbon Dioxide 33 mmol/L (22-29) H 08/18/24 06:41 Anion Gap 15.5 (5-19) 08/18/24 06:41 BUN 12 mg/dL (8-23) 08/18/24 06:41 Creatinine 0.6 mg/dL (0.5-0.9) 08/18/24 06:41 GFR Calculation 101.6 mL/min (90-130) 08/18/24 06:41 Glucose 121 mg/dL (65-115) H 08/18/24 06:41 Calculated Osmolality 299 mOsm/kg (285-295) H 08/18/24 06:41 Lactic Acid 0.6 mmol/L (0.5-2.2) 08/18/24 06:41 Calcium 9.1 mg/dL (8.5-10.5) 08/18/24 06:41 Total Bilirubin 0.4 mg/dL (0.15-1.2) 08/18/24 06:41 AST 12 U/L (0-32) 08/18/24 06:41 ALT 11 U/L (0-33) 08/18/24 06:41 Alkaline Phosphatase 121 U/L (35-105) H 08/18/24 06:41 Troponin T Baseline < 6 ng/L (0-10) 08/18/24 06:41 Troponin T 120 Minute 6.00 ng/L (0-10) 08/18/24 08:45 Delta Troponin T 0.16639 ABS# (0-10) 08/18/24 08:45 Total Protein 6.7 g/dL (6.6-8.7) 08/18/24 06:41 Albumin 4.3 g/dL (3.5-5.2) 08/18/24 06:41 Globulin 2.4 g/dL (1.3-4.6) 08/18/24 06:41 All radiology interpretation(s) finalized by discharge Discharge Plan Discharge Patient Disposition: Admitted As Inpatient Admit Provider: Derik Lott Clinical Impression: Hypercapnic respiratory failure, Cigarette nicotine dependence, Community acquired pneumonia, Acute exacerbation of chronic obstructive airways disease Condition: Stable Coding Level of Care Code ED Extension Clerk for Rama Gomez
[2024-08-18 06:35] LABS: ABG PH Result 7.26 (7.35-7.45); Arterial Blood Gas Hematocrit 40.1 % (37-47); Base Excess ABG 7.3 mmol/L (-2.0-2.0); Blood Gas Allen Test Pos; Blood Gas Operator Identificat gerca; Blood Gas Sample Site Radial, right; Blood Gas Sample Type Arterial; Carboxyhemoglobin 1.6 %THgb (0.4-20.1); HCO3 ABG 37.5 mmol/L (22-26); HGB O2 Sat 91.2 % (95-100); Ionized Calcium Level - ABG 1.2 mmol/L (1.1-1.4); Methemoglobin 0.9 % (0.4-1.5); Oxygen Device NC; Oxygen Saturation ABG 93.5; PO2 ABG 71.8 mmHg (80.0-100.0); PO2 FiO2 Ratio Arterial Blood 199; Potassium Level - ABG 4.1 mmol/L (3.5-5.0); Total Hemoglobin 13.1 g/dL (12-16)
[2024-08-18] MEDS: ipratropium-albuterol 3 mL Neb INHALATION ×4 (06:40→21:06)
[2024-08-18 06:49] LABS: Basophils % 0.2 %; Eosinophils # 0.2 10^3/uL (0.0-0.8); Eosinophils % 1.8 %; Hematocrit 42.4 % (36-47); Lymphocytes # 0.9 10^3/uL (0.8-4.8); Lymphocytes % 6.6 %; Mean Corpuscular HGB Conc 30.2 g/dL (30-55); Mean Corpuscular Hemoglobin 28.7 pg (27-33); Mean Corpuscular Volume 95.1 fl (85-98); Mean Platelet Volume 8.3 fL (7.4-10.4); Monocytes # 0.4 10^3/uL (0.2-0.9); Monocytes % 2.8 %; Neutrophils # 11.54 10^3/uL (1.8-7.7); Neutrophils % 88.2 %; Nucleated Red Blood Cells % 0 %; Platelet Count 310 10^3/cmm (157-399); Red Blood Count 4.46 10^6/uL (3.85-5.65); Red Cell Distribution Width 14.5 % (12.1-15.1); White Blood Count 13.09 10^3/uL (3.29-11.43)
[2024-08-18] MEDS: methylPREDNISolone sod succ 125 mg/2 mL INJ IVP (07:02)
[2024-08-18 07:12] LABS: Troponin(5th) Baseline < 6 ng/L (0-10)
[2024-08-18 07:19] LABS: Alanine Aminotransferase 11 U/L (0-33); Albumin Level 4.3 g/dL (3.5-5.2); Alkaline Phosphatase 121 U/L (35-105); Anion Gap 15.5 (5-19); Aspartate Amino Transferase 12 U/L (0-32); Blood Urea Nitrogen 12 mg/dL (8-23); Calcium 9.1 mg/dL (8.5-10.5); Carbon Dioxide 33 mmol/L (22-29); Chloride 100 mmol/L (98-107); Creatinine Clr Calc Pharmacy 84.7389; Globulin 2.4 g/dL (1.3-4.6); Glomerular Filtration Rate 101.6 mL/min (90-130); Glucose 121 mg/dL (65-115); Osmolality Calculated 299 mOsm/kg (285-295); Potassium 4.5 mmol/L (3.5-5.1); Sodium 144 mmol/L (136-145); Total Bilirubin 0.4 mg/dL (0.15-1.2); Total Protein 6.7 g/dL (6.6-8.7)
[2024-08-18] MEDS: cefTRIAXone 1,000 mg SDV 1000 MG IVP (07:26)
[2024-08-18] MEDS: AZITHROMYCIN ADD-Vantage 500 MG in 0.9% NaCl ADD-Vantage 250 ML 250 MG IV (07:32)
[2024-08-18 07:33] LABS: Lactic Sepsis W/Reflex 0.6 mmol/L (0.5-2.2)
--- NOTE | 2024-08-18 08:14 | ECG_ITS ---
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 Measurements Intervals [place] Rate: 61 P: 71 ME: 132 QRS: 64 QRSD: 101 T: 67 QT: 415 QTc: 419 Interpretive Statements SINUS RHYTHM Compared to ECG 08/18/2024 06:35:04 No significant changes Electronically Signed On 08-19-2024 10:21:59 CDT by Cole Prieto M.D. [email or web address]
[2024-08-18 09:06] LABS: Troponin 5 2HR Delta 0.00001 ABS# (0-10)
[2024-08-18] MEDS: sodium chloride 0.9% 1,000 ML 100 ML IV ×2 (09:50→17:45)
[2024-08-18 10:23] LABS: D Dimer <= 0.27 ug/mLFEU (0-0.59)
--- NOTE | 2024-08-18 10:30 | PM.HP ---
Providers/Chief Complaint Admitting Physician: Derik Lott MD Primary Care Provider: Ronald Alford DO Chief Complaint: SOB History of Present Illness Jesenia Ewing is a 59 year old female with a past medical history of COPD, recently started on oxygen as outpatient by her primary care physician when room O2 sats were noted to be at 83%, history of coronary artery disease, was planned for outpatient angiogram tomorrow due to persistent complaints of shortness of breath. She presents to the emergency room today stating that she has been short of breath increasingly over the past week. Denies any fever or chills or increased expectoration. She was found to have evidence of hypercapnic respiratory failure in the ER with pCO2 up to 83 and respiratory acidosis for which she was placed on a BiPAP upon arrival. She is currently seen in the ICU on this BiPAP. She is currently awake alert and oriented and able to have a full conversation while on the BiPAP. Denies any current chest pain. Troponin series today is unremarkable, EKG does not show any acute ST-T wave changes. Review of Systems General: Reports: 10 or more systems reviewed and unremarkable except in HPI and below Const: Denies: fever(s), chills or body aches Eyes: Denies: change in vision, blurry vision or photophobia ENMT: Reports: hoarseness; Denies: throat pain, enlarged tonsils, odynophagia or nasal congestion Card: Denies: chest pain, palpitations, irregular heart rhythm, edema, swelling of feet/ankles, lightheadedness, pre-syncope, dyspnea on exertion or orthopnea Resp: Denies: dyspnea, productive cough, non-productive cough, wheezing, stridor, pain on inspiration, change in phlegm color, hemoptysis or chest congestion GI: Denies: abdominal pain, nausea, vomiting, hematemesis, coffee ground emesis, dysphagia, heartburn, diarrhea, constipation, GI cramping, change in stool character, hematochezia or melena : Denies: flank pain, difficulty voiding, dysuria, urinary frequency, urinary urgency, urinary hesitancy or hematuria Musc: Denies: neck pain, back pain, extremity pain, joint swelling, joint warmth or deformity Neuro: Denies: headache(s), numbness in extremities, weakness in extremities, sensory changes, difficulty walking, frequent falls, dizziness, vertigo, behavioral changes, Slurred speech present or seizure-like activity Psych: Denies: anxiety, depression, suicidal ideation or homicidal ideation Endo: Denies: polyuria, polydipsia, tired all the time, cold intolerance or hot flashes Yoav/Lymph: Denies: easy bruising or easy bleeding Medications/Allergies Home Medications ?Medication ?Instructions ?Recorded ?Confirmed ?Last Taken ?Type albuterol sulfate 90 mcg/actuation 2 puff inhalation Q6H PRN 11/16/23 08/18/24 Unknown Rx aerosol inhaler bronchospasm #6.7 grams montelukast 10 mg tablet 10 mg PO DAILY #90 tabs 05/28/24 08/18/24 08/17/24 Rx (Singulair) alprazolam 1 mg tablet 1 mg PO DAILY PRN anxiety #30 tabs 08/08/24 08/18/24 08/17/24 Rx atorvastatin 40 mg tablet 40 mg PO DAILY #90 tabs 08/08/24 08/18/24 08/17/24 Rx carvedilol 12.5 mg tablet 12.5 mg PO BID #180 tabs 08/08/24 08/18/24 08/17/24 Rx buspirone 15 mg tablet 15 mg PO BID 08/16/24 08/18/24 08/17/24 History clopidogrel 75 mg tablet 75 mg PO DAILY 08/16/24 08/18/24 08/17/24 History sertraline 100 mg tablet 100 mg PO DAILY 08/16/24 08/18/24 08/17/24 History himsxgptyc-nlccfdjrgpfsz-zuujakew 1 tab PO TID 08/18/24 08/18/24 08/17/24 History 50 mg-325 mg-40 mg tablet Allergies Allergy/AdvReac Type Severity Reaction Status Date / Time bupropion (From Zyban) Allergy Intermediate rash Verified 08/12/24 14:55 influenza virus vaccine qs Allergy Intermediate swelling Verified 08/12/24 14:55 [id number] (36 mos, up) (From Fluarix Quad) rofecoxib (From Vioxx) Allergy Intermediate rash Verified 08/12/24 14:55 PFSH Acute PFSH: Medical History Coronary artery disease Peripheral arterial disease Insomnia Fatty liver COPD (chronic obstructive pulmonary disease) Anxiety associated with depression Surgical History History of coronary artery stent placement History of appendectomy H/O abdominal hysterectomy Social History Smoking and tobacco/nicotine status: former use of tobacco/nicotine (Quit 07/25/24) Quit status (tobacco/nicotine): has quit using Year quit tobacco: 2023 Former quit date comment: 07/26/23 Alcohol intake: former Female Reproductive History: Spontaneous abortions: No Vitals/I&O/Wt Last Vital Signs Temp 97 F L 08/18/24 12:00 Pulse 77 08/18/24 12:00 Resp 21 H 08/18/24 12:00 BP 119/53 08/18/24 12:00 Pulse Ox 82 L 08/18/24 12:00 O2 Del Method BiPAP 08/18/24 10:18 O2 Flow Rate 35 08/18/24 10:18 FiO2 35 08/18/24 11:21 08/17/24 08/18/24 08/18/24 22:59 06:59 14:59 Intake Total 400 / 400 Balance 400 / 400 Weight last 48 hrs Weight 68.039 kg Weight 68.039 kg Physical Exam Narrative: General: No acute distress, AO x3 HEENT: PERRLA, pupils bilaterally equal and reactive, pallors not present Chest: Normal vesicular breath sounds, no added sounds, equal good air entry bilaterally CVS: S1-S2 regular, no murmurs, no tachycardia, no gallops, no rubs Abdomen: Soft, nontender, no organomegaly, bowel sounds present Neuro: No focal deficits, no facial deformity, AO x3, power 5/5 in all limbs Data 08/18/24 06:41 08/18/24 06:41 Micro: Microbiology 08/18/24 07:23 Blood Culture - Preliminary Blood SPECIMEN COLLECTED 08/18/24 06:41 Blood Culture - Preliminary Blood SPECIMEN COLLECTED ABG Interpretation 1: 08/18/24 08/18/24 06:22 10:15 ABG pH 7.26 L 7.32 L ABG pCO2 84.0 H* 69.7 H* ABG pO2 71.8 L 52.6 L ABG HCO3 37.5 H 35.9 H ABG O2 Saturation 93.5 ABG Base Excess 7.3 H 7.4 H Other data: Radiology Impressions Chest X-Ray 08/18/24 06:12 IMPRESSION: Mild opacity at the lateral right lung base. Laboratory Results WBC 13.09 10^3/uL (3.29-11.43) H 08/18/24 06:41 RBC 4.46 10^6/uL (3.85-5.65) 08/18/24 06:41 Hgb 12.80 g/dL (11.27-16.99) 08/18/24 06:41 Hct 42.4 % (36-47) 08/18/24 06:41 MCV 95.1 fl (85-98) 08/18/24 06:41 MCH 28.7 pg (27-33) 08/18/24 06:41 MCHC 30.2 g/dL (30-55) 08/18/24 06:41 RDW 14.5 % (12.1-15.1) 08/18/24 06:41 Plt Count 310 10^3/cmm (157-399) 08/18/24 06:41 MPV 8.3 fL (7.4-10.4) 08/18/24 06:41 Neut % (Auto) 88.2 % 08/18/24 06:41 Lymph % (Auto) 6.6 % 08/18/24 06:41 [place] % (Auto) 2.8 % 08/18/24 06:41 Eos % (Auto) 1.8 % 08/18/24 06:41 Baso % (Auto) 0.2 % 08/18/24 06:41 Neut # (Auto) 11.54 10^3/uL (1.8-7.7) H 08/18/24 06:41 Lymph # (Auto) 0.9 10^3/uL (0.8-4.8) 08/18/24 06:41 [place] # (Auto) 0.4 10^3/uL (0.2-0.9) 08/18/24 06:41 Eos # (Auto) 0.2 10^3/uL (0.0-0.8) 08/18/24 06:41 Baso # (Auto) 0.0 10^3/uL (0.0-0.1) 08/18/24 06:41 Nucleated RBC % (auto) 0 % 08/18/24 06:41 Nucleated RBCs # 0.0 /100WBC 08/18/24 06:41 D-Dimer <= 0.27 ug/mLFEU (0-0.59) 08/18/24 06:41 Specimen Type Arterial 08/18/24 10:15 Sample Site Radial, left 08/18/24 10:15 ABG pH 7.32 (7.35-7.45) L 08/18/24 10:15 ABG pCO2 69.7 mmHg (35-45) H* 08/18/24 10:15 ABG pO2 52.6 mmHg (80.0-100.0) L 08/18/24 10:15 ABG PO2/FiO2 Ratio 175 08/18/24 10:15 ABG HCO3 35.9 mmol/L (22-26) H 08/18/24 10:15 ABG O2 Saturation 93.5 08/18/24 06:22 ABG Base Excess 7.4 mmol/L (-2.0-2.0) H 08/18/24 10:15 Matty Test Pos 08/18/24 10:15 A-a O2 Gradient 11.0 mmHg (5-10) H 08/18/24 06:22 Hematocrit 38.6 % (37-47) 08/18/24 10:15 Hgb O2 Saturation 91.2 % (95-100) L 08/18/24 06:22 Carboxyhemoglobin 1.6 %THgb (0.4-20.1) 08/18/24 06:22 Methemoglobin 0.9 % (0.4-1.5) 08/18/24 06:22 Total Hemoglobin 13.1 g/dL (12-16) 08/18/24 06:22 Sodium 142.0 mmol/L (131-143) 08/18/24 06:22 Potassium 4.1 mmol/L (3.5-5.0) 08/18/24 06:22 Glucose 126.0 mg/dL (70-115) H 08/18/24 06:22 Ionized Calcium 1.2 mmol/L (1.1-1.4) 08/18/24 06:22 O2 Delivery Device Bipap 08/18/24 10:15 O2 Liters/Min 4.0 % 08/18/24 06:22 FiO2 30.0 % 08/18/24 10:15 B2B Appointment Setter ID [id number] 08/18/24 10:15 Sodium 144 mmol/L (136-145) 08/18/24 06:41 Potassium 4.5 mmol/L (3.5-5.1) 08/18/24 06:41 Chloride 100 mmol/L (98-107) 08/18/24 06:41 Carbon Dioxide 33 mmol/L (22-29) H 08/18/24 06:41 Anion Gap 15.5 (5-19) 08/18/24 06:41 BUN 12 mg/dL (8-23) 08/18/24 06:41 Creatinine 0.6 mg/dL (0.5-0.9) 08/18/24 06:41 GFR Calculation 101.6 mL/min (90-130) 08/18/24 06:41 Glucose 121 mg/dL (65-115) H 08/18/24 06:41 Calculated Osmolality 299 mOsm/kg (285-295) H 08/18/24 06:41 Lactic Acid 0.6 mmol/L (0.5-2.2) 08/18/24 06:41 Calcium 9.1 mg/dL (8.5-10.5) 08/18/24 06:41 Total Bilirubin 0.4 mg/dL (0.15-1.2) 08/18/24 06:41 AST 12 U/L (0-32) 08/18/24 06:41 ALT 11 U/L (0-33) 08/18/24 06:41 Alkaline Phosphatase 121 U/L (35-105) H 08/18/24 06:41 Troponin T Baseline < 6 ng/L (0-10) 08/18/24 06:41 Troponin T 120 Minute 6.00 ng/L (0-10) 08/18/24 08:45 Delta Troponin T 0.99033 ABS# (0-10) 08/18/24 08:45 Total Protein 6.7 g/dL (6.6-8.7) 08/18/24 06:41 Albumin 4.3 g/dL (3.5-5.2) 08/18/24 06:41 Globulin 2.4 g/dL (1.3-4.6) 08/18/24 06:41 A&P Assessment and plan (1) Community acquired pneumonia: (2) COPD exacerbation: (3) Hypercapnic respiratory failure: (4) Chronic respiratory failure with hypoxia: Plan 59-year-old lady with past medical history of COPD and coronary artery disease currently presenting to the hospital with worsening shortness of breath ABG shows evidence of acute hypercapnic respiratory failure in a background of known chronic hypoxemic respiratory failure. Most likely related to COPD exacerbation triggered by pneumonia. Patient is currently on a BiPAP which we will continue. Serial ABG has been ordered to assess for improvement Chest x-ray is showing right lower lobe infiltrate, will cover with empiric ceftriaxone and azithromycin for community-acquired pneumonia Methylprednisolone 40 mg IV every 8 hours for COPD exacerbation duoneb q6h, budesonide q12h scheduled nebulization Currently on normal saline at 100 cc/h. Target MAP greater than 65. D-dimer screen to rule out PE. Patient was to establish with pulmonology on Monday at [facility]. Patient has a history of coronary artery disease. Most recently she is status post bifurcation stenting procedure of the left main artery/LAD/LCx in [place] in December 2023. She was seen in cardiology follow-up on August 12, 2024 for worsening shortness of breath and chest tightness and was planned to undergo an angiogram and right heart cath tomorrow. Will consult with cardiology as patient may benefit from completing this procedure prior to discharge once she is improving from a respiratory standpoint. Continue aspirin, Plavix, atorvastatin. Holding beta-blockers given soft blood pressure today. MAP of 60-63 currently. Last echocardiogram from July 29, 2024 with LVEF of 55 to 60%, grade 1 diastolic dysfunction and mild MR. Compared to 2023 there was noted to be mild hypokinesia of the inferolateral wall. Today there are no noted new EKG changes. 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 PDMP PDMP Reviewed: Not Reviewed Attestations Medical Necessity Statement*: Greater than 2 midnight admission is anticipated for above defined care. Critical Care Time: The high probability of a clinically significant, sudden or life threatening deterioration of the patient's [respiratory, cardiac] system(s) required my full and direct attention, intervention and personal management. The critical care time is as shown. This time is in addition to time spent performing any reported procedures but includes the following: [x] Data and vital sign review and interpretation [x] Patient assessment, examination and intervention [x] Documentation [x] Medication orders and management Critical Care Time (min): 50 Coding Level of Care Code Critical Care >/= 30 minutes Critical care time (in minutes): 50 The high probability of a clinically significant, sudden or life threatening deterioration, as referenced in this documentation, required my full and direct attention, intervention and personal management. The critical care time shown is in addition to time spent performing any reported separately billable procedures and includes the following: [x] Data and vital sign review and interpretation [x] Patient assessment, examination and intervention [x] Medication orders and management [x] Patient/Family updates as able [x] Care Coordination and Documentation. Diagnoses Community acquired pneumonia J18.9 COPD exacerbation J44.1 Hypercapnic respiratory failure J96.92 Chronic respiratory failure with hypoxia J96.11
[2024-08-18 10:33] LABS: ABG PH Result 7.32 (7.35-7.45); Arterial Blood Gas Hematocrit 38.6 % (37-47); Base Excess ABG 7.4 mmol/L (-2.0-2.0); Blood Gas Allen Test Pos; Blood Gas Operator Identificat GD; Blood Gas Sample Site Radial, left; Blood Gas Sample Type Arterial; HCO3 ABG 35.9 mmol/L (22-26); Oxygen Device BIPAP; PO2 ABG 52.6 mmHg (80.0-100.0); PO2 FiO2 Ratio Arterial Blood 175
[2024-08-18 10:34] LABS: ABG PCO2 69.7 mmHg (35-45)
[2024-08-18] MEDS: enoxaparin 40 mg/0.4 mL Syringe SUBCUT (10:38)
[2024-08-18] MEDS: pantoprazole DR 40 mg Tablet PO (10:38)
[2024-08-18] MEDS: norepinephrine 4 MG/250 ML BAG 7.5 MG IV (10:39)
--- NOTE | 2024-08-18 11:26 | USCV_ITS ---
Ewing Jesenia Age: 59 Gender: F : 1965 Exam Date: 08/18/2024 11:53 Ordering Phys: Cole Prieto M.D ([email or web address]) Technologist: Juma Wyatt [place] [facility] [place]: ef BP: 87 / 52 HR: Rhythm: Sinus Technical Quality: Adequate MEASUREMENTS (Male / Female) Normal Values 2D ECHO LV Diastolic Diameter PLAX 3.3 cm 4.2 - 5.9 / 3.9 - 5.3 cm IVS Diastolic Thickness 1.0 cm 0.6 - 1.0 / 0.6 - 0.9 cm IVS Systolic Thickness 1.6 cm LVPW Diastolic Thickness 1.4 cm 0.6 - 1.0 / 0.6 - 0.9 cm LVPW Systolic Thickness 1.5 cm LVOT Diameter 2.1 cm LV Ejection Fraction 2D Teich 79.5 % LV Ejection Fraction MOD 4C 62.1 % LV Ejection Fraction MOD 2C 72.4 % LV Ejection Fraction 2C AL 74.6 % LA Diameter 3.7 cm RA Systolic Volume 4C AL 18.8 ml RA Systolic Volume 4C MOD 17.7 ml LA Sys Volume AL 27.5 cm cubed LA Sys Volume Index AL 16.0 cm cubed/m squared Aorta at Sinotubular Diameter 2.0 cm IVC Diameter 1.7 cm M-MODE LA Ao Ratio MM 1.3 AV Cusp Separation MM 1.6 cm FINDINGS Left Ventricle Right Ventricle Right Atrium Left Atrium Mitral Valve Aortic Valve Tricuspid Valve Pulmonic Valve Pericardium Aorta IVC CONCLUSIONS Limited echocardiogram performed to assess LV systolic function. LV systolic function is normal with EF of 60-65%. No regional wall motion abnormalities are seen Cole Prieto MD (Electronically Signed) Final Date: 18 Aug 2024 15:05 S
[2024-08-18] MEDS: clopidogrel 75 mg Tablet PO (11:40)
[2024-08-18] MEDS: aspirin 325 mg Tablet PO (11:40)
[2024-08-18 13:16] LABS: ABG PH Result 7.32 (7.35-7.45); Arterial Blood Gas Hematocrit 38.4 % (37-47); Base Excess ABG 5.5 mmol/L (-2.0-2.0); Blood Gas Operator Identificat GD; Blood Gas Sample Site Brachial, right; Blood Gas Sample Type Arterial; HCO3 ABG 33.6 mmol/L (22-26); Oxygen Device BIPAP; PO2 ABG 65.9 mmHg (80.0-100.0); PO2 FiO2 Ratio Arterial Blood 188
[2024-08-18 13:21] LABS: Troponin 5 6HR Delta 0.00001 ng/L (0-12)
[2024-08-18 15:25] LABS: Adenovirus Not Detected (NOT DETECT); Chlamydia Pneumoniae Not Detected (NOT DETECT); Coronavirus 229E,HKU1,NL63,OC4 Not Detected (NOT DETECT); Human Metapneumovirus Not Detected (NOT DETECT); Human Rhinovirus/Enterovirus Not Detected (NOT DETECT); Influenza A Not Detected (NOT DETECT); Influenza A H1 Not Detected (NOT DETECT); Influenza A H1-2009 Not Detected (NOT DETECT); Influenza A H3 Not Detected (NOT DETECT); Influenza B Not Detected (NOT DETECT); Mycoplasma Pneumoniae Not Detected (NOT DETECT); Parainfluenza Virus Type 1 Not Detected (NOT DETECT); Parainfluenza Virus Type 2 Not Detected (NOT DETECT); Parainfluenza Virus Type 3 Not Detected (NOT DETECT); Parainfluenza Virus Type 4 Not Detected (NOT DETECT); Respiratory Syncytial Virus A Not Detected (NOT DETECT); Respiratory Syncytial Virus B Not Detected (NOT DETECT); SARS-COV-2 Not Detected (NOT DETECT)
[2024-08-18] MEDS: methylPREDNISolone sod succ 40 mg/mL INJ IVP ×2 (16:00→22:40)
[2024-08-18 16:19] LABS: ABG PCO2 48.1 mmHg (35-45); ABG PH Result 7.41 (7.35-7.45); Alveolar-Arterial Oxygen Gradi 11.7 mmHg (5-10); Arterial Blood Gas Hematocrit 37.9 % (37-47); Base Excess ABG 4.6 mmol/L (-2.0-2.0); Blood Gas Operator Identificat GD; Blood Gas Sample Site Brachial, right; Blood Gas Sample Type Arterial; Carboxyhemoglobin 1.5 %THgb (0.4-20.1); HCO3 ABG 30.2 mmol/L (22-26); HGB O2 Sat 96.6 % (95-100); Ionized Calcium Level - ABG 1.2 mmol/L (1.1-1.4); Methemoglobin 0.8 % (0.4-1.5); Oxygen Device BIPAP; Oxygen Saturation ABG 98.9; PO2 ABG 98.7 mmHg (80.0-100.0); PO2 FiO2 Ratio Arterial Blood 282; Total Hemoglobin 12.4 g/dL (12-16)
--- NOTE | 2024-08-18 17:00 | PC.NURSE ---
here voiced concern that doing heart cath in am is too soon with pnumonia and the way here breathing was at this time just now off also requesting food , doctor notified and orders noted
[2024-08-18] MEDS: BuSPIRONE 10 mg Tablet 15 MG PO (17:45)
[2024-08-18] MEDS: carvedilol 12.5 mg Tablet PO (17:45)
[2024-08-18] MEDS: acetaminophen 325 mg Tablet 650 MG PO (17:47)
[2024-08-18 18:20] LABS: ABG PCO2 65.3 mmHg (35-45)
--- NOTE | 2024-08-18 18:26 | ECG_ITS ---
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 Measurements Intervals [place] Rate: 77 P: 74 NC: 138 QRS: 61 QRSD: 94 T: 66 QT: 362 QTc: 410 Interpretive Statements SINUS RHYTHM WITH SINUS ARRHYTHMIA Compared to ECG 08/18/2024 16:03:22 No significant changes Electronically Signed On 08-19-2024 10:21:41 CDT by Cole Prieto M.D. [email or web address]
[2024-08-18 20:42] LABS: Bacteria Urine 3+ /hpf; Hyaline Casts Urine 2.46 /lpf; WBC Urine 21-50 /hpf (0-5)
[2024-08-18 20:44] LABS: Add Urine Microscopic? YES; Bilirubin Urine Negative (Negative); Blood Urine Negative (Negative); Glucose Urine UA Trace (Normal); Ketones Urine 3+ (Negative); Leukocyte Esterase Urine 2+ (Negative); Nitrate Urine Negative (Negative); Protein Urine Trace (Negative); Specific Gravity, Urine 1.025 (1.005-1.030); Urine Appearance Error (CLEAR); Urine Color Yellow (Yellow)
[2024-08-18 20:53] LABS: UA Slide Review UA Slide Review Perf
[2024-08-18 20:56] LABS: Add Urine Culture? Yes
[2024-08-18] MEDS: budesonide 0.5 mg/2 mL Neb INHALATION (21:06)
--- NOTE | 2024-08-18 22:19 | PM.CONSULT ---
Providers/Reason For Consult Consulting Physician/Specialty*: Cole Prieto MD/ Cardiology Reason for Consult*: Need for angiogram/ Respiratory failure Requesting Physician: Dr Gary Attending Physician: Shabnam Gray MD Primary Care Provider: Ronald Alford DO History of Present Illness History of Present Illness Jesenia Ewing is a 59 year old female with past medical history of coronary artery disease with bifurcation stenting of the left main artery last year in [place] has been readmitted to hospital with worsening shortness of breath. She was seen in the office recently and plan was for coronary angiogram. Today she is not complaining of chest pain. Troponins have not trended up. EKG not showing ischemic changes. Limited echo performed that shows normal LV systolic function. Chest x-ray is consistent with COPD and pneumonia Review of Systems General: Reports: 10 or more systems reviewed and unremarkable except in HPI and below Card: Reports: palpitations, swelling of feet/ankles, lightheadedness, pre-syncope, dyspnea on exertion and orthopnea; Denies: irregular heart rhythm, edema, syncope or leg pain with exertion Resp: Reports: dyspnea; Denies: productive cough or non-productive cough Musc: Denies: extremity pain or extremity swelling Neuro: Reports: dizziness Medications/Allergies Home Medications ?Medication ?Instructions ?Recorded ?Confirmed ?Last Taken ?Type albuterol sulfate 90 mcg/actuation 2 puff inhalation Q6H PRN 11/16/23 08/18/24 Unknown Rx aerosol inhaler bronchospasm #6.7 grams montelukast 10 mg tablet 10 mg PO DAILY #90 tabs 05/28/24 08/18/24 08/17/24 Rx (Singulair) alprazolam 1 mg tablet 1 mg PO DAILY PRN anxiety #30 tabs 08/08/24 08/18/24 08/17/24 Rx atorvastatin 40 mg tablet 40 mg PO DAILY #90 tabs 08/08/24 08/18/24 08/17/24 Rx carvedilol 12.5 mg tablet 12.5 mg PO BID #180 tabs 08/08/24 08/18/24 08/17/24 Rx buspirone 15 mg tablet 15 mg PO BID 08/16/24 08/18/24 08/17/24 History clopidogrel 75 mg tablet 75 mg PO DAILY 08/16/24 08/18/24 08/17/24 History sertraline 100 mg tablet 100 mg PO DAILY 08/16/24 08/18/24 08/17/24 History pohcaourti-amgrllsfyilmc-atfrzwkv 1 tab PO TID 08/18/24 08/18/24 08/17/24 History 50 mg-325 mg-40 mg tablet Allergies Allergy/AdvReac Type Severity Reaction Status Date / Time bupropion (From Zyban) Allergy Intermediate rash Verified 08/12/24 14:55 influenza virus vaccine qs Allergy Intermediate swelling Verified 08/12/24 14:55 [id number] (36 mos, up) (From Fluarix Quad) rofecoxib (From Vioxx) Allergy Intermediate rash Verified 08/12/24 14:55 Current Medications Generic Name Dose Route Start Last Admin Trade Name Freq PRN Reason Stop Dose Admin Acetaminophen 650 mg 08/18/24 09:56 08/18/24 17:47 Acetaminophen 325 Mg Tablet PO 650 mg Q6H PRN Administration Mild/Mod Pain Or Temp >/= 101 Albuterol/Ipratropium 3 ml 08/18/24 10:00 08/18/24 21:06 Ipratropium-Albuterol 3 Ml Neb INHALATION 3 ml Q6H.RESP RUSS Administration Budesonide 0.5 mg 08/18/24 20:00 08/18/24 21:06 Budesonide 0.5 Mg/2 Ml Neb INHALATION 0.5 mg BID.RESPIRATORY RUSS Administration Buspirone HCl 15 mg 08/18/24 18:00 08/18/24 17:45 Buspirone 10 Mg Tablet PO 15 mg BID RUSS Administration Carvedilol 12.5 mg 08/18/24 18:00 08/18/24 17:45 Carvedilol 12.5 Mg Tablet PO 12.5 mg BID RUSS Administration Clopidogrel Bisulfate 75 mg 08/18/24 11:45 08/18/24 11:40 Clopidogrel 75 Mg Tablet PO 75 mg DAILY RUSS Administration Enoxaparin Sodium 40 mg 08/18/24 10:00 08/18/24 10:38 Enoxaparin 40 Mg/0.4 Ml Syringe SUBCUT 40 mg Q24H RUSS Administration Sodium Chloride 1,000 mls @ 100 mls/hr 08/18/24 07:57 08/18/24 17:45 Sodium Chloride 0.9% IV 100 mls/hr .Q10H RUSS Administration Norepinephrine Bitartrate 4 mg in 250 mls @ 0 mls/hr 08/18/24 10:30 08/18/24 21:20 Levophed IV 6 mcg/min .Q0M RUSS 22.5 mls/hr Protocol Titration Per Protocol Methylprednisolone Sodium Succinate 40 mg 08/18/24 15:00 08/18/24 16:00 Methylprednisolone Sod Succ 40 Mg/Ml Inj IVP 40 mg Q8H RUSS Administration Pantoprazole Sodium 40 mg 08/18/24 10:30 08/18/24 10:[address] 40 Mg Tablet PO 40 mg DAILY RUSS Administration PFSH Acute PFSH: Medical History Coronary artery disease Peripheral arterial disease Insomnia Fatty liver COPD (chronic obstructive pulmonary disease) Anxiety associated with depression Surgical History History of coronary artery stent placement History of appendectomy H/O abdominal hysterectomy Social History Smoking and tobacco/nicotine status: former use of tobacco/nicotine (Quit 07/25/24) Quit status (tobacco/nicotine): has quit using Year quit tobacco: 2023 Former quit date comment: 07/26/23 Alcohol intake: former Female Reproductive History: Spontaneous abortions: No Vitals/I&O/Wt Last Vital Signs Temp 97 F L 08/18/24 12:00 Pulse 83 08/18/24 21:15 Resp 27 H 08/18/24 21:15 BP 107/47 08/18/24 21:15 Pulse Ox 85 L 08/18/24 21:15 O2 Del Method Nasal Cannula 08/18/24 21:00 O2 Flow Rate 4 08/18/24 21:00 FiO2 35 08/18/24 15:14 08/18/24 08/18/24 08/18/24 06:59 14:59 22:59 Intake Total 400 / 400 1274.042 / 1674.042 Balance 400 / 400 1274.042 / 1674.042 Weight last 48 hrs Weight 150 lb Weight 150 lb Physical Exam Narrative: GENERAL: Patient is alert, awake and oriented x3. [] NECK: No jugular vein distension. [] HEENT: No cyanosis. No icterus. No pallor. [] HEART: Regular S1 and S2. LUNGS: Diminished air entry bilaterally CENTRAL NERVOUS SYSTEM: Grossly nonfocal. [] EXTREMITIES: Lower extremities with 1+ edema bilaterally. Data 08/19/24 04:46 08/19/24 04:46 Micro: Microbiology 08/18/24 07:23 Blood Culture - Preliminary Blood SPECIMEN COLLECTED 08/18/24 06:41 Blood Culture - Preliminary Blood SPECIMEN COLLECTED A&P Assessment and plan (1) Tobacco use: (2) Peripheral arterial disease: (3) Coronary artery disease: (4) Essential hypertension: (5) Dyspnea on exertion: (6) COPD (chronic obstructive pulmonary disease): (7) Community acquired pneumonia: Plan Patient has ventricular pneumonia and COPD exacerbation. Continue management per primary team. She was scheduled for outpatient coronary angiogram tomorrow. At this time after discussion with patient, shared decision made to continue with medical therapy. Once she is stable will be seen as outpatient and determination of need for heart cath at that time Continue aspirin and plavix Limited echocardiogram shows normal LV systolic function Thank you for involving us with care of this patient. She can follow up with cardiology as outpatient. Please call with questions. PDMP PDMP Reviewed: Not Reviewed Consult Attestations Medical Necessity Statement: Care expected to cross 2 midnights. Coding Level of Care Code Acute Code for [facility] Fwd Diagnoses Tobacco use Z72.0 Peripheral arterial disease I73.9 Coronary artery disease of [place] artery of [place] heart with stable angina pectoris I25.118 Coronary Disease-Associated Artery/Lesion type: [place] artery [place] vs. transplanted heart: [place] heart Associated angina: with stable angina Essential hypertension I10 Dyspnea on exertion R06.09 Chronic obstructive pulmonary disease, unspecified COPD type J44.9 COPD type: unspecified COPD Community acquired pneumonia J18.9
[2024-08-18] MEDS: ropinirole 0.25 mg Tablet PO (22:39)
[2024-08-19] VITALS (84 sets, daily range): BP systolic 74–162; BP diastolic 42–85; PULSE 51–84; RESP 13–28; TEMP 36.8; O2SAT 84–100
[2024-08-19] MEDS: ipratropium-albuterol 3 mL Neb INHALATION ×4 (02:04→19:57)
[2024-08-19] MEDS: sodium chloride 0.9% 1,000 ML 100 ML IV ×3 (03:13→23:03)
[2024-08-19 05:30] LABS: Basophils % 0.1 %; Hematocrit 37.2 % (36-47); Lymphocytes % 5.5 %; Mean Corpuscular HGB Conc 30.6 g/dL (30-55); Mean Corpuscular Hemoglobin 28.6 pg (27-33); Mean Corpuscular Volume 93.2 fl (85-98); Mean Platelet Volume 8.8 fL (7.4-10.4); Monocytes # 0.4 10^3/uL (0.2-0.9); Neutrophils # 15.72 10^3/uL (1.8-7.7); Neutrophils % 91.8 %; Nucleated Red Blood Cells % 0 %; Platelet Count 321 10^3/cmm (157-399); Red Blood Count 3.99 10^6/uL (3.85-5.65); Red Cell Distribution Width 14.4 % (12.1-15.1); White Blood Count 17.13 10^3/uL (3.29-11.43)
[2024-08-19 05:53] LABS: Alanine Aminotransferase 12 U/L (0-33); Albumin Level 3.7 g/dL (3.5-5.2); Alkaline Phosphatase 95 U/L (35-105); Anion Gap 14.9 (5-19); Aspartate Amino Transferase 14 U/L (0-32); Blood Urea Nitrogen 13 mg/dL (8-23); Calcium 8.8 mg/dL (8.5-10.5); Carbon Dioxide 29 mmol/L (22-29); Chloride 102 mmol/L (98-107); Creatinine Clr Calc Pharmacy 101.6867; Globulin 2.5 g/dL (1.3-4.6); Glomerular Filtration Rate 125.4 mL/min (90-130); Glucose 171 mg/dL (65-115); Magnesium 1.8 mg/dL (1.7-2.3); Osmolality Calculated 298 mOsm/kg (285-295); Potassium 3.9 mmol/L (3.5-5.1); Sodium 142 mmol/L (136-145); Total Bilirubin 0.2 mg/dL (0.15-1.2); Total Protein 6.2 g/dL (6.6-8.7)
--- NOTE | 2024-08-19 07:28 | PC.NURSE ---
awaken this am for rounds, more coughing noted and states throat sore , blood pressure better started weaning down levophed gtt at this time remain npo for possible cath this am
[2024-08-19] MEDS: water for injection-sterile 10 ML 1000 ML (08:03)
[2024-08-19] MEDS: methylPREDNISolone sod succ 40 mg/mL INJ IVP ×2 (08:03→20:04)
[2024-08-19] MEDS: cefTRIAXone 1,000 mg SDV 1000 MG IVP (08:03)
[2024-08-19] MEDS: budesonide 0.5 mg/2 mL Neb INHALATION ×2 (08:05→19:57)
[2024-08-19] MEDS: aspirin 81 mg EC Tablet PO (08:48)
[2024-08-19] MEDS: sertraline 100 mg Tablet PO (08:48)
[2024-08-19] MEDS: carvedilol 12.5 mg Tablet 3.125 MG PO (08:48)
[2024-08-19] MEDS: azithromycin 250 mg Tablet 500 MG PO (08:49)
[2024-08-19] MEDS: montelukast sodium 10 mg Tablet PO (08:49)
[2024-08-19] MEDS: pantoprazole DR 40 mg Tablet PO (08:49)
[2024-08-19] MEDS: BuSPIRONE 10 mg Tablet 15 MG PO ×2 (08:49→17:54)
[2024-08-19] MEDS: benzonatate 100 mg Capsule PO (08:50)
[2024-08-19] MEDS: atorvastatin 40 mg Tablet PO (08:50)
[2024-08-19] MEDS: norepinephrine 4 MG/250 ML BAG 7.5 MG IV (10:03)
[2024-08-19] MEDS: clopidogrel 75 mg Tablet PO (11:23)
[2024-08-19] MEDS: ondansetron 2 mg/ML SDV 2 mL 4 MG IVP (12:07)
--- NOTE | 2024-08-19 12:10 | PC.NURSE ---
c/o nausea zofran given at this time no futher nosebleed noted
--- NOTE | 2024-08-19 12:24 | PM.PN ---
Subjective Subjective: Seen today. Patient had nosebleed episode this morning. She is on Lovenox and Plavix and aspirin. On 2 L nasal cannula. States prior to this hospitalization she was recently set up with home oxygen. She is still getting used to it. I discussed with her to humidify her oxygen to help prevent some nosebleeds. Denies chest pain at this time. Vitals/I&O/Wt Last Vital Signs Temp 98.2 F 08/19/24 05:55 Pulse 62 08/19/24 12:15 Resp 15 08/19/24 12:15 BP 137/70 08/19/24 12:15 Pulse Ox 99 08/19/24 12:15 O2 Del Method Nasal Cannula 08/19/24 08:00 O2 Flow Rate 2 08/19/24 08:00 FiO2 35 08/18/24 15:14 08/18/24 08/19/24 08/19/24 22:59 06:59 14:59 Intake Total 1274.042 / 4233.540 4222.417 / 2753.459 144.875 / 144.875 Output Total 0 / 0 900 / 900 200 / 200 Balance 1274.042 / 1674.042 179.417 / 1853.459 -55.125 / -55.125 Weight last 48 hrs Weight 72.5 kg Weight 68.039 kg Weight 68.039 kg Physical Exam Narrative: General: No acute distress, AO x3 HEENT: PERRLA, pupils bilaterally equal and reactive, pallors not present Chest: Normal vesicular breath sounds, no added sounds, equal good air entry bilaterally CVS: S1-S2 regular, no murmurs, no tachycardia, no gallops, no rubs Abdomen: Soft, nontender, no organomegaly, bowel sounds present Neuro: No focal deficits, no facial deformity, AO x3 Data 08/19/24 04:46 08/19/24 04:46 Micro: Microbiology 08/18/24 07:23 Blood Culture - Preliminary Blood NEGATIVE TO DATE 08/18/24 06:41 Blood Culture - Preliminary Blood NEGATIVE TO DATE A&P Assessment and plan (1) Community acquired pneumonia: (2) COPD exacerbation: (3) Hypercapnic respiratory failure: (4) Chronic respiratory failure with hypoxia: Plan 59-year-old lady with past medical history of COPD and coronary artery disease currently presenting to the hospital with worsening shortness of breath ABG shows evidence of acute hypercapnic respiratory failure in a background of known chronic hypoxemic respiratory failure. Most likely related to COPD exacerbation triggered by pneumonia. Patient is currently on a BiPAP which we will continue. Serial ABG has been ordered to assess for improvement Chest x-ray is showing right lower lobe infiltrate, will cover with empiric ceftriaxone and azithromycin for community-acquired pneumonia Methylprednisolone 40 mg IV every 8 hours for COPD exacerbation duoneb q6h, budesonide q12h scheduled nebulization Currently on normal saline at 100 cc/h. Target MAP greater than 65. D-dimer screen to rule out PE. Patient was to establish with pulmonology on Monday at [facility]. Patient has a history of coronary artery disease. Most recently she is status post bifurcation stenting procedure of the left main artery/LAD/LCx in [place] in December 2023. She was seen in cardiology follow-up on August 12, 2024 for worsening shortness of breath and chest tightness and was planned to undergo an angiogram and right heart cath tomorrow. Will consult with cardiology as patient may benefit from completing this procedure prior to discharge once she is improving from a respiratory standpoint. Continue aspirin, Plavix, atorvastatin. Holding beta-blockers given soft blood pressure today. MAP of 60-63 currently. Last echocardiogram from July 29, 2024 with LVEF of 55 to 60%, grade 1 diastolic dysfunction and mild MR. Compared to 2023 there was noted to be mild hypokinesia of the inferolateral wall. Today there are no noted new EKG changes. 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 08/19/2024 - Discussed with cardiology over the phone. Recommend to continue aspirin and Plavix given that her PCI was done within the last 1 year. Recommend to continue unless major bleed occurs at which point this may be reevaluated with cardiology input. At this time we will go ahead and stop Lovenox 40 daily which is for DVT prophylaxis. Patient did have an episode of nosebleed this morning. Discussed with nursing staff to add humidifier for the nasal cannula. If patient has further episodes we will evaluate and manage accordingly. -Continue to treat for COPD exacerbation. ? Use BiPAP as needed. Continue treatment for right lower lobe pneumonia. Continue ceftriaxone azithromycin. De-escalate methylprednisone to 40 every 12 hours. Plan for angiogram as an outpatient at a later time. Patient is requiring Levophed this morning around 2 mics. We will try to wean off. This may be most likely secondary to pneumonia? Or secondary to medication? Going forward I will hold Coreg. Check sputum Gram stain culture PDMP PDMP Reviewed: Not Reviewed Attestations Medical Necessity Statement*: Greater than 2 midnight admission is anticipated for above defined care. Diagnoses Community acquired pneumonia J18.9 Laterality: right Lung location: lower lobe of lung COPD exacerbation J44.1 Hypercapnic respiratory failure J96.22 Chronicity: acute on chronic Chronic respiratory failure with hypoxia J96.11
[2024-08-20] VITALS (101 sets, daily range): BP systolic 99–142; BP diastolic 54–87; PULSE 55–88; RESP 9–31; TEMP 36.3–37.1; O2SAT 81–100
[2024-08-20] MEDS: ipratropium-albuterol 3 mL Neb INHALATION ×4 (02:25→20:05)
[2024-08-20 03:48] LABS: Basophils % 0.2 %; Hematocrit 35.4 % (36-47); Lymphocytes # 0.8 10^3/uL (0.8-4.8); Lymphocytes % 5.6 %; Mean Corpuscular HGB Conc 30.2 g/dL (30-55); Mean Corpuscular Hemoglobin 28.5 pg (27-33); Mean Corpuscular Volume 94.4 fl (85-98); Monocytes # 0.4 10^3/uL (0.2-0.9); Monocytes % 3.1 %; Neutrophils % 90.1 %; Nucleated Red Blood Cells % 0 %; Platelet Count 260 10^3/cmm (157-399); Red Blood Count 3.75 10^6/uL (3.85-5.65); Red Cell Distribution Width 14.8 % (12.1-15.1); White Blood Count 13.31 10^3/uL (3.29-11.43)
[2024-08-20 04:20] LABS: Anion Gap 12.4 (5-19); Blood Urea Nitrogen 18 mg/dL (8-23); Calcium 8.5 mg/dL (8.5-10.5); Carbon Dioxide 29 mmol/L (22-29); Chloride 104 mmol/L (98-107); Creatinine Clr Calc Pharmacy 105.0151; Glomerular Filtration Rate 125.4 mL/min (90-130); Glucose 147 mg/dL (65-115); Osmolality Calculated 297 mOsm/kg (285-295); Potassium 4.4 mmol/L (3.5-5.1); Sodium 141 mmol/L (136-145)
[2024-08-20] MEDS: cefTRIAXone 1,000 mg SDV 1000 MG IVP (07:56)
[2024-08-20] MEDS: sodium chloride 0.9% 1,000 ML 100 ML IV (08:42)
[2024-08-20] MEDS: azithromycin 250 mg Tablet 500 MG PO (08:43)
[2024-08-20] MEDS: atorvastatin 40 mg Tablet PO (08:43)
[2024-08-20] MEDS: pantoprazole DR 40 mg Tablet PO (08:43)
[2024-08-20] MEDS: BuSPIRONE 10 mg Tablet 15 MG PO ×2 (08:43→18:04)
[2024-08-20] MEDS: methylPREDNISolone sod succ 40 mg/mL INJ IVP (08:44)
[2024-08-20] MEDS: aspirin 81 mg EC Tablet PO (08:44)
[2024-08-20] MEDS: clopidogrel 75 mg Tablet PO (08:44)
[2024-08-20] MEDS: sertraline 100 mg Tablet PO (08:44)
[2024-08-20] MEDS: montelukast sodium 10 mg Tablet PO (08:44)
[2024-08-20] MEDS: acetaminophen 325 mg Tablet 650 MG PO (08:49)
[2024-08-20] MEDS: benzonatate 100 mg Capsule PO (08:49)
[2024-08-20] MEDS: budesonide 0.5 mg/2 mL Neb INHALATION ×2 (09:27→20:05)
--- NOTE | 2024-08-20 15:34 | P.PN_ITS ---
Subjective 2 Subjective: seen today off levophed for 24 hours feeling better sob has improved wbc trending down Vitals/I&O/Wt Last Vital Signs Temp 98.7 F 08/20/24 08:15 Pulse 77 08/20/24 14:23 Resp 18 08/20/24 14:23 BP 117/56 08/20/24 12:00 Pulse Ox 98 08/20/24 14:23 O2 Del Method Nasal Cannula 08/20/24 14:23 O2 Flow Rate 2 08/20/24 14:23 FiO2 35 08/19/24 23:00 08/20/24 08/20/24 08/20/24 06:59 14:59 22:59 Intake Total 965 / 965 Output Total 500 / 1050 750 / 750 Balance -500 / 1239.542 215 / 215 Weight last 48 hrs Weight 75.5 kg Weight 72.5 kg Physical Exam 2 Narrative: General: No acute distress, AO x3 HEENT: PERRLA, pupils bilaterally equal and reactive, pallors not present Chest: Normal vesicular breath sounds, no added sounds, equal good air entry bilaterally CVS: S1-S2 regular, no murmurs, no tachycardia, no gallops, no rubs Abdomen: Soft, nontender, bowel sounds present Neuro: No focal deficits, no facial deformity, AO x3 Data 08/20/24 03:21 08/20/24 03:21 Micro: Microbiology 08/18/24 19:50 Urine Culture - Preliminary Urine,Clean Catch A&P Assessment and plan (1) Community acquired pneumonia: (2) COPD exacerbation: (3) Hypercapnic respiratory failure: (4) Chronic respiratory failure with hypoxia: Plan 59-year-old lady with past medical history of COPD and coronary artery disease currently presenting to the hospital with worsening shortness of breath ABG shows evidence of acute hypercapnic respiratory failure in a background of known chronic hypoxemic respiratory failure. Most likely related to COPD exacerbation triggered by pneumonia. Patient is currently on a BiPAP which we will continue. Serial ABG has been ordered to assess for improvement Chest x-ray is showing right lower lobe infiltrate, will cover with empiric ceftriaxone and azithromycin for community-acquired pneumonia Methylprednisolone 40 mg IV every 8 hours for COPD exacerbation duoneb q6h, budesonide q12h scheduled nebulization Currently on normal saline at 100 cc/h. Target MAP greater than 65. D-dimer screen to rule out PE. Patient was to establish with pulmonology on Monday at [facility]. Patient has a history of coronary artery disease. Most recently she is status post bifurcation stenting procedure of the left main artery/LAD/LCx in [place] in December 2023. She was seen in cardiology follow-up on August 12, 2024 for worsening shortness of breath and chest tightness and was planned to undergo an angiogram and right heart cath tomorrow. Will consult with cardiology as patient may benefit from completing this procedure prior to discharge once she is improving from a respiratory standpoint. Continue aspirin, Plavix, atorvastatin. Holding beta-blockers given soft blood pressure today. MAP of 60-63 currently. Last echocardiogram from July 29, 2024 with LVEF of 55 to 60%, grade 1 diastolic dysfunction and mild MR. Compared to 2023 there was noted to be mild hypokinesia of the inferolateral wall. Today there are no noted new EKG changes. 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 08/19/2024 - Discussed with cardiology over the phone. Recommend to continue aspirin and Plavix given that her PCI was done within the last 1 year. Recommend to continue unless major bleed occurs at which point this may be reevaluated with cardiology input. At this time we will go ahead and stop Lovenox 40 daily which is for DVT prophylaxis. Patient did have an episode of nosebleed this morning. Discussed with nursing staff to add humidifier for the nasal cannula. If patient has further episodes we will evaluate and manage accordingly. -Continue to treat for COPD exacerbation. ? Use BiPAP as needed. Continue treatment for right lower lobe pneumonia. Continue ceftriaxone azithromycin. De-escalate methylprednisone to 40 every 12 hours. Plan for angiogram as an outpatient at a later time. Patient is requiring Levophed this morning around 2 mics. We will try to wean off. This may be most likely secondary to pneumonia? Or secondary to medication? Going forward I will hold Coreg. Check sputum Gram stain culture 08/20/2024 continue asa, plavix hold lovenox 40 continue ceft + azithro continue solumedrol 40 q12h, switch to solumedrol 40 daily Plan for angiogram as an outpatient at a later time. transfer to [facility] home o2 eval in AM potential dc in am if remains stable PDMP PDMP Reviewed: Not Reviewed Attestations 2 Medical Necessity Statement*: potential dc in am Diagnoses Community acquired pneumonia J18.9 Laterality: right Lung location: lower lobe of lung COPD exacerbation J44.1 Hypercapnic respiratory failure J96.22 Chronicity: acute on chronic Chronic respiratory failure with hypoxia J96.11
--- NOTE | 2024-08-20 18:02 | XRR_ITS ---
PROCEDURE INFORMATION: Exam: XR Chest Exam date and time: 08/20/2024 6:23 PM Age: 59 years old Clinical indication: Shortness of breath; Additional info: Hypoxia TECHNIQUE: Imaging protocol: Radiologic exam of the chest. Views: 1 view. COMPARISON: CR (CHEST, ) 08/18/2024 6:39 AM FINDINGS: Lungs: Subsegmental atelectatic changes in the left lung base. Pleural spaces: Blunting of the left costophrenic angle consistent with small pleural effusion. No pneumothorax. Heart/Mediastinum: Heart size within normal limits. No pulmonary vascular congestion. Bones/joints: Unremarkable. XR/XR chest 1V portable [id number] IMPRESSION: 1. Blunting of the left costophrenic angle consistent with small pleural effusion. 2. Subsegmental atelectatic changes in the left lung base.
[2024-08-20] MEDS: ALPRAZolam 0.5 mg Tablet 1 MG PO (18:04)
[2024-08-20] MEDS: FUROsemide 10 mg/mL SDV 2mL 20 MG IVP ×2 (18:23→19:00)
[2024-08-20 18:39] LABS: NT Pro B Type Natriuretic Pept 1628 pg/mL (0-125)
--- NOTE | 2024-08-20 19:40 | PC.NURSE ---
Off going nurse told me in report she administered 1900 Furosemide. Patient stated she received it as well. Patient alert and oriented.
[2024-08-20] MEDS: ropinirole 0.25 mg Tablet PO (21:09)
[2024-08-21] VITALS (60 sets, daily range): BP systolic 96–141; BP diastolic 52–92; PULSE 56–95; RESP 5–26; TEMP 36.2–36.9; O2SAT 80–100; BMI 32.3
[2024-08-21] MEDS: ipratropium-albuterol 3 mL Neb INHALATION ×2 (02:09→08:49)
[2024-08-21 03:22] LABS: Basophils % 0.1 %; Eosinophils % 0.2 %; Hematocrit 35.9 % (36-47); Lymphocytes # 1.6 10^3/uL (0.8-4.8); Mean Corpuscular HGB Conc 30.1 g/dL (30-55); Mean Corpuscular Hemoglobin 28.6 pg (27-33); Mean Platelet Volume 8.9 fL (7.4-10.4); Monocytes # 0.7 10^3/uL (0.2-0.9); Monocytes % 6.4 %; Neutrophils # 8.73 10^3/uL (1.8-7.7); Neutrophils % 78.8 %; Nucleated Red Blood Cells % 0 %; Platelet Count 241 10^3/cmm (157-399); Red Blood Count 3.78 10^6/uL (3.85-5.65); Red Cell Distribution Width 14.7 % (12.1-15.1); White Blood Count 11.08 10^3/uL (3.29-11.43)
[2024-08-21 03:44] LABS: Anion Gap 11.7 (5-19); Blood Urea Nitrogen 14 mg/dL (8-23); Calcium 8.5 mg/dL (8.5-10.5); Carbon Dioxide 34 mmol/L (22-29); Chloride 103 mmol/L (98-107); Creatinine Clr Calc Pharmacy 107.2535; Glomerular Filtration Rate 125.4 mL/min (90-130); Glucose 96 mg/dL (65-115); Osmolality Calculated 300 mOsm/kg (285-295); Potassium 3.7 mmol/L (3.5-5.1); Sodium 145 mmol/L (136-145)
[2024-08-21] MEDS: FUROsemide 10 mg/mL SDV 4mL 40 MG IVP (08:48)
[2024-08-21] MEDS: cefTRIAXone 1,000 mg SDV 1000 MG IVP (08:48)
[2024-08-21] MEDS: budesonide 0.5 mg/2 mL Neb INHALATION (08:48)
[2024-08-21] MEDS: sertraline 100 mg Tablet PO (08:49)
[2024-08-21] MEDS: clopidogrel 75 mg Tablet PO (08:49)
[2024-08-21] MEDS: azithromycin 250 mg Tablet 500 MG PO (08:49)
[2024-08-21] MEDS: pantoprazole DR 40 mg Tablet PO (08:49)
[2024-08-21] MEDS: montelukast sodium 10 mg Tablet PO (08:49)
[2024-08-21] MEDS: methylPREDNISolone sod succ 40 mg/mL INJ IVP (08:49)
[2024-08-21] MEDS: BuSPIRONE 10 mg Tablet 15 MG PO (08:50)
[2024-08-21] MEDS: atorvastatin 40 mg Tablet PO (08:50)
[2024-08-21] MEDS: aspirin 81 mg EC Tablet PO (08:50)
--- NOTE | 2024-08-21 10:08 | PC.SOCIAL ---
IMM Updated Updated pt on IMM. No questions voiced. Provided pt a copy. Initialed, dated, & timed a copy & placed in chart.
--- NOTE | 2024-08-21 11:09 | P.PN_ITS ---
<Statement entered by Evelia Santizo MD - 08/21/24 20:53> Patient was evaluated and cared for in conjunction with an advanced practice practitioner. I personally have not examined the patient but I have reviewed the chart and all pertinent data including imaging, telemetry, and laboratory results. I discussed the patient in detail with the advanced practice practitioner. Please see their note for complete H&P testing result and agreed upon plan of care for the patient. Subjective 2 Subjective: Hospitalist service requested we see patient for recommendations for optimizing medications for discharge. Patient sitting up in the chair this morning, on oxygen-she has newly qualified for oxygen going home. She has been up ambulating around the ICU without distress or chest pain. She appears euvolemic, LVEF was normal on her echocardiogram. Vitals/I&O/Wt Last Vital Signs Temp 97.9 F 08/21/24 03:25 Pulse 75 08/21/24 08:57 Resp 16 08/21/24 08:40 BP 116/53 08/21/24 04:05 Pulse Ox 86 L 08/21/24 09:16 O2 Del Method Nasal Cannula 08/21/24 08:40 O2 Flow Rate 4 08/21/24 09:16 FiO2 35 08/19/24 23:00 08/20/24 08/21/24 08/21/24 22:59 06:59 14:59 Intake Total 320 / 1465 Output Total 1100 / 2150 300 / 2150 Balance -780 / -685 -300 / -685 Weight last 48 hrs Weight 165 lb 5.547 oz Weight 166 lb 7.184 oz Physical Exam 2 Const: COMMON NORMALS: no acute distress and patient oriented x3 GENERAL APPEARANCE: cooperative and comfortable ORIENTATION/CONSCIOUSNESS: Yes awake, Yes oriented to person, Yes oriented to place and Yes oriented to time Chest: COMMONS NORMALS: normal inspection of the chest and normal palpation of entire chest wall CHEST: Yes Symmetrical chest wall rise Resp: COMMON NORMALS: normal respiratory effort, No retractions, No use of accessory muscles and clear to auscultation bilaterally EFFORT & INSPECTION: Yes symmetric chest movement AUSCULTATION: clear to auscultation bilaterally Cardio: COMMON NORMALS: regular rate, regular rhythm, S1 normal heart sound present, S2 normal heart sound present, No gallops present (Cardio), No clicks present (Cardio), No murmurs present (Cardio) and No rub (Cardio) RATE: r egular rate RHYTHM: regular rhythm HEART SOUNDS: S1 normal heart sound present and S2 normal heart sound present PERIPHERAL PULSES: radial pulses present Extremity: COMMON NORMALS: no pedal edema Neuro: COMMON NORMALS: patient oriented x3 and moves all extremities S ENSORIUM/ORIENTATION: Yes oriented to person, Yes oriented to place and Yes oriented to time Data 08/21/24 03:08 08/21/24 03:08 Micro: Microbiology 08/18/24 19:50 Urine Culture - Preliminary Urine,Clean Catch A&P Assessment and plan (1) Coronary artery disease: (2) Essential hypertension: (3) Tobacco use: Plan Since she was taken off of Levophed yesterday for blood pressure support, blood pressure has ranged between 115 and 150 systolic. Will recommend to reduce carvedilol to 3.125 mg twice a day. She can monitor blood pressure at home and increase dose depending on her log. If blood pressure is consistently above 140 systolic, she should increase to 6.25 mg twice daily, if after 2 days blood pressure is still above 140 systolic she can resume her previous home dose of 12.5 mg twice daily. She is on Plavix however I do not see any aspirin listed in her home medications. She should start that as she has a history of left main/LAD stent. Plan is to determine need for coronary angiogram as an outpatient on follow-up. PDMP PDMP Reviewed: Not Reviewed Attestations 2 Medical Necessity Statement*: Possible discharge, per hospitalist Coding Level of Care Code Acute Code for [facility] Diagnoses Coronary artery disease of [place] artery of [place] heart with stable angina pectoris I25.118 Coronary Disease-Associated Artery/Lesion type: [place] artery [place] vs. transplanted heart: [place] heart Associated angina: with stable angina Essential hypertension I10 Tobacco use Z72.0
--- NOTE | 2024-08-21 11:31 | P.DS_ITS ---
Discharge Providers Date of Admission: 08/18/24 09:55 Date of Discharge: August 21, 2024 Attending Provider at Admission: Derik Lott MD Attending Provider at Discharge: Jada Blair MD Primary Care Provider: Ronald Alford DO Diagnoses at Discharge Discharge Diagnosis (1) Coronary artery disease: Status: Chronic Qualifiers: Associated angina: with stable angina Coronary Disease-Associated Artery/Lesion type: [place] artery [place] vs. transplanted heart: [place] heart Qualified Code(s): I25.118 - Atherosclerotic heart disease of [place] coronary artery with other forms of angina pectoris (2) Essential hypertension: Status: Chronic (3) Tobacco use: Status: Chronic Reason for Visit Reason for Visit: SOB Hospital Course Hospital Course Patient was admitted for COPD exacerbation. Patient treated with step azithromycin Solu-Medrol. She was also supposed to have an angiogram for which cardiology was consulted. Plan for angiogram later as an outpatient. Follow-up with cardiology as an outpatient at this point. Cardio consulted on the patient during hospitalization. Patient did require Levophed briefly during hospital stay. She will be discharged home in stable condition. Physical Exam Narrative: General: No acute distress, AO x3 HEENT: PERRLA, pupils bilaterally equal and reactive, pallors not present Chest: Normal vesicular breath sounds, no added sounds, equal good air entry bilaterally CVS: S1-S2 regular, no murmurs, no tachycardia, no gallops, no rubs Abdomen: Soft, nontender, bowel sounds present Neuro: No focal deficits, no facial deformity, AO x3 Discharge Data Studies Completed and Pending Completed Studies During Hospitalization Category Date Time Status XR chest 1V portable [id number] Stat Exams 08/18/24 06:12 Completed XR chest 1V portable [id number] Urgent Exams 08/20/24 18:02 Completed US echo limited [CV. echo limited [id number]] Routine Ultrasound 08/18/24 11:26 Completed Pending at discharge Category Date Time Status Blood Culture Stat Lab 08/18/24 07:23 Results Sputum Culture and Gram Stain Stat Lab 08/19/24 12:32 Uncollected Urine Culture Stat Lab 08/18/24 19:50 Results Radiology Impressions Chest X-Ray 08/20/24 18:02 IMPRESSION: 1. Blunting of the left costophrenic angle consistent with small pleural effusion. 2. Subsegmental atelectatic changes in the left lung base. Laboratory Results WBC 11.08 10^3/uL (3.29-11.43) 08/21/24 03:08 RBC 3.78 10^6/uL (3.85-5.65) L 08/21/24 03:08 Hgb 10.80 g/dL (11.27-16.99) L 08/21/24 03:08 Hct 35.9 % (36-47) L 08/21/24 03:08 MCV 95.0 fl (85-98) 08/21/24 03:08 MCH 28.6 pg (27-33) 08/21/24 03:08 MCHC 30.1 g/dL (30-55) 08/21/24 03:08 RDW 14.7 % (12.1-15.1) 08/21/24 03:08 Plt Count 241 10^3/cmm (157-399) 08/21/24 03:08 MPV 8.9 fL (7.4-10.4) 08/21/24 03:08 Neut % (Auto) 78.8 % 08/21/24 03:08 Lymph % (Auto) 14.0 % 08/21/24 03:08 [place] % (Auto) 6.4 % 08/21/24 03:08 Eos % (Auto) 0.2 % 08/21/24 03:08 Baso % (Auto) 0.1 % 08/21/24 03:08 Neut # (Auto) 8.73 10^3/uL (1.8-7.7) H 08/21/24 03:08 Lymph # (Auto) 1.6 10^3/uL (0.8-4.8) 08/21/24 03:08 [place] # (Auto) 0.7 10^3/uL (0.2-0.9) 08/21/24 03:08 Eos # (Auto) 0.0 10^3/uL (0.0-0.8) 08/21/24 03:08 Baso # (Auto) 0.0 10^3/uL (0.0-0.1) 08/21/24 03:08 Nucleated RBC % (auto) 0 % 08/21/24 03:08 Nucleated RBCs # 0.0 /100WBC 08/21/24 03:08 D-Dimer <= 0.27 ug/mLFEU (0-0.59) 08/18/24 06:41 Specimen Type Arterial 08/18/24 16:00 Sample Site Brachial, right 08/18/24 16:00 ABG pH 7.41 (7.35-7.45) 08/18/24 16:00 ABG pCO2 48.1 mmHg (35-45) H 08/18/24 16:00 ABG pO2 98.7 mmHg (80.0-100.0) 08/18/24 16:00 ABG PO2/FiO2 Ratio 282 08/18/24 16:00 ABG HCO3 30.2 mmol/L (22-26) H 08/18/24 16:00 ABG O2 Saturation 98.9 08/18/24 16:00 ABG Base Excess 4.6 mmol/L (-2.0-2.0) H 08/18/24 16:00 Matty Test N/a 08/18/24 16:00 A-a O2 Gradient 11.7 mmHg (5-10) H 08/18/24 16:00 Hematocrit 37.9 % (37-47) 08/18/24 16:00 Hgb O2 Saturation 96.6 % (95-100) 08/18/24 16:00 Carboxyhemoglobin 1.5 %THgb (0.4-20.1) 08/18/24 16:00 Methemoglobin 0.8 % (0.4-1.5) 08/18/24 16:00 Total Hemoglobin 12.4 g/dL (12-16) 08/18/24 16:00 Sodium 141.0 mmol/L (131-143) 08/18/24 16:00 Potassium 4.0 mmol/L (3.5-5.0) 08/18/24 16:00 Glucose 158.0 mg/dL (70-115) H 08/18/24 16:00 Ionized Calcium 1.2 mmol/L (1.1-1.4) 08/18/24 16:00 O2 Delivery Device Bipap 08/18/24 16:00 O2 Liters/Min 4.0 % 08/18/24 06:22 FiO2 35.0 % 08/18/24 16:00 Neurodiagnostic Technologist ID Gd 08/18/24 16:00 Sodium 145 mmol/L (136-145) 08/21/24 03:08 Potassium 3.7 mmol/L (3.5-5.1) 08/21/24 03:08 Chloride 103 mmol/L (98-107) 08/21/24 03:08 Carbon Dioxide 34 mmol/L (22-29) H 08/21/24 03:08 Anion Gap 11.7 (5-19) 08/21/24 03:08 BUN 14 mg/dL (8-23) 08/21/24 03:08 Creatinine 0.5 mg/dL (0.5-0.9) 08/21/24 03:08 GFR Calculation 125.4 mL/min (90-130) 08/21/24 03:08 Glucose 96 mg/dL (65-115) 08/21/24 03:08 Calculated Osmolality 300 mOsm/kg (285-295) H 08/21/24 03:08 Lactic Acid 0.6 mmol/L (0.5-2.2) 08/18/24 06:41 Calcium 8.5 mg/dL (8.5-10.5) 08/21/24 03:08 Magnesium 1.8 mg/dL (1.7-2.3) 08/19/24 04:46 Total Bilirubin 0.2 mg/dL (0.15-1.2) 08/19/24 04:46 AST 14 U/L (0-32) 08/19/24 04:46 ALT 12 U/L (0-33) 08/19/24 04:46 Alkaline Phosphatase 95 U/L (35-105) 08/19/24 04:46 Troponin T Baseline < 6 ng/L (0-10) 08/18/24 06:41 Troponin T 120 Minute 6.00 ng/L (0-10) 08/18/24 08:45 Delta Troponin T 0.00110 ABS# (0-10) 08/18/24 08:45 Troponin T Hi Sens 6Hr 6.00 ng/L (0-10) 08/18/24 12:33 Troponin T Hi Sens 6Hr Delta 0.93968 ng/L (0-12) 08/18/24 12:33 NT-Pro-B Natriuret Pep 1628 pg/mL (0-125) H 08/20/24 03:21 Total Protein 6.2 g/dL (6.6-8.7) L 08/19/24 04:46 Albumin 3.7 g/dL (3.5-5.2) 08/19/24 04:46 Globulin 2.5 g/dL (1.3-4.6) 08/19/24 04:46 Urine Color Yellow (Yellow) 08/18/24 19:50 Urine Appearance Error (CLEAR) A 08/18/24 19:50 Urine pH 6.0 (5-7) 08/18/24 19:50 Ur Specific [place] 1.025 (1.005-1.030) 08/18/24 19:50 Urine Protein Trace (Negative) A 08/18/24 19:50 Urine Glucose (UA) Trace (Normal) H 08/18/24 19:50 Urine Ketones 3+ (Negative) H 08/18/24 19:50 Urine Blood Negative (Negative) 08/18/24 19:50 Urine Nitrate Negative (Negative) 08/18/24 19:50 Urine Bilirubin Negative (Negative) 08/18/24 19:50 Urine Urobilinogen 1.0 mg/dL (Negative) 08/18/24 19:50 Ur Leukocyte Esterase 2+ (Negative) A 08/18/24 19:50 Urine RBC 11-20 /hpf (0-2) H 08/18/24 19:50 Urine WBC 21-50 /hpf (0-5) H 08/18/24 19:50 Ur Squamous Epith Cells 6-10 /hpf (0-5) 08/18/24 19:50 Amorphous Sediment Not Reportable 08/18/24 19:50 Urine Bacteria 3+ /hpf (NONE) H 08/18/24 19:50 Hyaline Casts 2.46 /lpf 08/18/24 19:50 Adenovirus (PCR) Not detected (NOT DETECT) 08/18/24 13:30 C. pneumoniae DNA (PCR) Not detected (NOT DETECT) 08/18/24 13:30 Coronavirus 229E (PCR) Not detected (NOT DETECT) 08/18/24 13:30 Human Metapneumovir PCR Not detected (NOT DETECT) 08/18/24 13:30 Influenza A (H1) PCR Not detected (NOT DETECT) 08/18/24 13:30 Influ A (H1/09) PCR Not detected (NOT DETECT) 08/18/24 13:30 Influenza A (H3) PCR Not detected (NOT DETECT) 08/18/24 13:30 Influenza Type A (PCR) Not detected (NOT DETECT) 08/18/24 13:30 Influenza Type B (PCR) Not detected (NOT DETECT) 08/18/24 13:30 M. pneumoniae (PCR) Not detected (NOT DETECT) 08/18/24 13:30 Parainfluenza 1 (PCR) Not detected (NOT DETECT) 08/18/24 13:30 Parainfluenza 2 (PCR) Not detected (NOT DETECT) 08/18/24 13:30 Parainfluenza 3 (PCR) Not detected (NOT DETECT) 08/18/24 13:30 Parainfluenza 4 (PCR) Not detected (NOT DETECT) 08/18/24 13:30 RSV Type A (PCR) Not detected (NOT DETECT) 08/18/24 13:30 RSV Type B (PCR) Not detected (NOT DETECT) 08/18/24 13:30 Entero/Rhino (PCR) Not detected (NOT DETECT) 08/18/24 13:30 SARS-CoV-2 (PCR) Not detected (NOT DETECT) 08/18/24 13:30 Vitals Last Vital Signs Temp 97.9 F 08/21/24 03:25 Pulse 75 08/21/24 08:57 Resp 16 08/21/24 08:40 BP 116/53 08/21/24 04:05 Pulse Ox 86 L 08/21/24 09:16 O2 Del Method Nasal Cannula 08/21/24 08:40 O2 Flow Rate 4 08/21/24 09:16 FiO2 35 08/19/24 23:00 Discharge Plan Discharge Patient Disposition: Home Condition: Stable Prescriptions: New aspirin 81 mg Tablet,Delayed Release (Dr/Ec) 81 mg PO DAILY Qty: 30 0RF prednisone 20 mg tablet 40 mg PO DAILY Qty: 6 0RF carvedilol 12.5 mg Tablet 3.125 mg PO BID Qty: 60 0RF furosemide [Lasix] 20 mg tablet 20 mg PO DAILY Qty: 30 0RF potassium chloride 8 mEq capsule, extended release 8 meq PO DAILY Qty: 30 0RF Continued albuterol sulfate 90 mcg/actuation HFA aerosol inhaler 2 puff INHALATION Q6H PRN (Reason: bronchospasm) Qty: 6.7 11RF atorvastatin 40 mg tablet 40 mg PO DAILY Qty: 90 3RF alprazolam 1 mg tablet 1 mg PO DAILY PRN (Reason: anxiety) Qty: 30 2RF montelukast [Singulair] 10 mg tablet 10 mg PO DAILY Qty: 90 3RF sertraline 100 mg tablet 100 mg PO DAILY Rx Instructions: TAKE ONE TABLET BY MOUTH EVERY 24 HOURS clopidogrel 75 mg tablet 75 mg PO DAILY Rx Instructions: TAKE ONE TABLET BY MOUTH ONCE DAILY buspirone 15 mg tablet 15 mg PO BID Rx Instructions: TAKE ONE TABLET BY MOUTH TWICE DAILY Held fvxcpttxye-ybzqesygbcdnf-wond 50-325-40 mg tablet 1 tab PO TID Hold Instructions: see pcp Discontinued carvedilol 12.5 mg tablet 12.5 mg PO BID Qty: 180 2RF Rx Instructions: must administer with a meal/food Discharge Orders: Discharge Order (Routine); Ordered 08/21/24 Ordered By: Jada Blair Referrals: Ronald Alford DO [Primary Care Provider, Family Practice] - 4-7 days Referral Note: We have notified your physician's clinic of the need for a follow-up appointment to be scheduled. If you have not heard from them within the next 2 business days, please call them directly. have left message at this clinic ,please call them if you do not hear from them,like to schedule follow up about 4-7 days after hospital stay . Fely Ivory, ANIRUDH [Nurse Practitioner, Cardiology] - 08/29/24 8:00 am Cole Prieto M.D [Physician, Cardiology] - 1 month Referral Note: will schedule another appointment with after seeing Fely Ivory NP on 08-29-2024 date, Discharge Diet: Cardiac Discharge Activity: Oxygen as instructed Patient Instructions: Furosemide (By mouth) (Lasix), Prednisone (By mouth) (Prednisone Intensol, Prednicot, Deltasone, Nimo), Potassium Chloride (By mouth) (K-Dur, K-Alisha, K-Tab, Claude Mur), Aspirin (By mouth) (Chong Extra Strength, Chong Aspirin Children's,..., Carvedilol (By mouth) (Coreg, Coreg CR, Hypertenevide-12.5), COPD (Chronic Obstructive Pulmonary Disease) (DC), Community Acquired Pneumonia (DC), COPD Stoplight, Opioid Safety, Pneumonia Stoplight Discharge Attestations Time Spent in Discharge Care*: greater than 30 min Quality Metrics Clinical Quality Measures [ No reported AMI, CVA or VTE this stay] Coding Level of Care Code Acute Code for Chg Fwd Diagnoses Coronary artery disease of [place] artery of [place] heart with stable angina pectoris I25.118 Associated angina: with stable angina Coronary Disease-Associated Artery/Lesion type: [place] artery [place] vs. transplanted heart: [place] heart Essential hypertension I10 Tobacco use Z72.0
--- NOTE | 2024-08-21 13:15 | PC.NURSE ---
Discahrge instructions including follow-up appts. , Medications and conditions discussed and hand outs prvodied. Pneumonia and COPD stoplights provided and discussed. Message left with Dr Alford's office for appt, they should call you, if you have not heard from them by tomorrow afternoon give the office a call. All questions answered. Pt discharged.
== END 2024-08-21 13:15 | disposition home or self-care (01) | DRG 193 ==
LOC: ER 07:16 → ICU 07:48
PROVIDERS: Student in an Organized Health Care Education/Training Program; Admitting Provider Student in an Organized Health Care Education/Training Program; Emergency Provider Family Medicine; PCP Family Medicine; Visit Provider Internal Medicine
DX: J18.9 Pneumonia, unspecified organism (principal); J96.21 Acute and chronic respiratory failure with hypoxia; J96.22 Acute and chronic respiratory failure with hypercapnia; J44.1 Chronic obstructive pulmonary disease with (acute) exacerbation; E87.20 Acidosis, unspecified; J44.0 Chronic obstructive pulmonary disease with (acute) lower respiratory infection; I25.10 Atherosclerotic heart disease of native coronary artery without angina pectoris; Z95.5 Presence of coronary angioplasty implant and graft; Z79.899 Other long term (current) drug therapy; Z88.6 Allergy status to analgesic agent; Z88.7 Allergy status to serum and vaccine; Z88.8 Allergy status to other drugs, medicaments and biological substances; J44.9 Chronic obstructive pulmonary disease, unspecified; K76.0 Fatty (change of) liver, not elsewhere classified; F17.210 Nicotine dependence, cigarettes, uncomplicated; I10 Essential (primary) hypertension; I25.118 Atherosclerotic heart disease of native coronary artery with other forms of angina pectoris
CPT/HCPCS: 36415; 36600; 71045; 80048; 80051; 80053; 81001; 82330; 82803; 82805; 83605; 83735; 83880; 84484; 85025; 85378; 87040; 87086; 87486; 87581; 87633; 93005; 93308; 94640; 94660; 94760; 96365; 96372; 96374; 96375; 96376; 99291; J0456; J0696; J1650; J1940; J2405; J2919; J7030; J7050; J7626; J9999; Q0144

== ENCOUNTER → 2024-09-04 13:03 | Outpatient (BNVA) | payer MEDICARE, SELFPAY | PROVIDERS: PCP Family Medicine; Visit Provider Nurse Practitioner Family | DX: I25.118 Atherosclerotic heart disease of native coronary artery with other forms of angina pectoris (principal); J44.9 Chronic obstructive pulmonary disease, unspecified; Z79.01 Long term (current) use of anticoagulants; Z79.82 Long term (current) use of aspirin; Z72.0 Tobacco use; Z95.5 Presence of coronary angioplasty implant and graft | CPT/HCPCS: 99214 ==

== ENCOUNTER 2024-09-11 08:34 | Outpatient (CLI) | payer MEDICARE, SELFPAY ==
[2024-09-11] VITALS (26 sets, daily range): BP systolic 110–150; BP diastolic 63–92; PULSE 56–79; RESP 15–20; TEMP 36.6–36.9; O2SAT 94–100; BMI 29.8
--- NOTE | 2024-09-11 09:00 | XACV_ITS ---
Exam Room: 2 Ht: 155 cm Wt: 72 kg BSA: 1.78 m2 Gender: Female : 1965 Any Known Allergies: Other Exam Priority: Routine Procedure(s): Procedure Description: Diagnostic procedure Procedure Description: PCI procedure Procedure Description: Right Heart Catheterization Procedure Description: O2 saturation Procedure Description: Drug Eluting Coronary Stent Procedure Description: PTCA Procedure Description: Miscellaneous Procedure Description: ACT Procedure Description: Coronary Angiography Diagnostic Cath Status: Elective Diagnostic Findings * INDICATION: Worsening angina/ dyspnea on exertion. * Left Main has patent prior stent. * Left Anterior Descending has patent prior stent. Diagonal artery has moderate to severe proximal vessel stenosis. * Right heart cath: Elevated right and left sided cardiac pressures. * Right Coronary Artery is small sized diffusely diseased non-dominant vessel. * Left circumflex artery has patent prior proximal stents. OM 2 is a large vessel with severe 80% ostial disease. * Second Obtuse Marginal Branch Segment: significant 80% stenosis, DENNIS: 3 flow. * Coronary angiography shows left dominance. PCI Status: Elective Interventional Findings * Procedure detail: We engaged left main artery with XB 3.0 guide catheter. Heparin was administered to maintain anticoagulation. Run-through wire was used to cross significant OM 2 stenosis and was put in distal vessel. We predilated the stenosis with 2.5 x 12 mm semicompliant balloon. This was followed by placement of 2.5 x 15 mm resolute Shay drug-eluting stent from mid circumflex artery into OM 2. Proximal part of the stent was postdilated with 3.0 x 8 mm NC balloon. There was pinching of mid to distal circumflex artery secondary to jailing from the stent. It was dilated with 2.5 x 12 mm semicompliant balloon. At this time final angiogram was performed that showed excellent stent expansion, no residual stenosis and DENNIS-3 flow. Guidewire and guide catheter were removed. 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 * Mid Circumflex: 70% stenosis treated with a AB TREK 2.50X12 RX BALLOON, and MDT NC EUPHORA RX [id number] BALLOON. 0% residual stenosis, DENNIS: 3 flow. * Second Obtuse Marginal Branch Segment: 80% stenosis treated with a AB TREK 2.50X12 RX BALLOON, and MDT R SHAY 2.5X15 KEON. 0% residual stenosis, DENNIS: 3 flow. Conclusions 1. Severe ostial OM 2 stenosis s/p PCI with 1 stent from mid LCx to OM 2. Balloon angioplasty of the jailed mid to distal left circumflex artery. 2. Elevated right and left sided cardiac pressures. 3. Second Obtuse Marginal Branch Segment was treated with a Balloon, and Drug Eluting Stent. Recommendations * Dual antiplatelet therapy with aspirin and plavix. * Will need uptitration of diuretic therapy as outpatient. * Outpatient cardiology follow up in 2 weeks. Interventional RX Recommendation: PCI w/o planned CABG Diagnostic RX Recommendation: PCI w/o planned CABG Anticoagulation: Heparin Pressures Phase:Rest AO : 134 / 91 ( 110 ) @ 11:56:00 AM RV : 53 / 12 / 20 @ 11:28:00 AM PA : 48 / 28 ( 33 ) @ 11:27:00 AM RA : a wave = 21 v wave = 23 mean = 18 @ 11:28:00 AM PCW : a wave = 30 v wave = 36 mean = 30 @ 11:26:00 AM O2 Content Phase:Rest PA : O2 Content O2: 65.5 @ 11:56:00 AM Saturations Phase:Rest AO : 97 @ 11:27:00 AM PA : 66 @ 11:56:00 AM Cardiac Output Phase:Rest Shannan : 3 @ 11:09:00 AM Shannan Cardiac Index: 2 @ 11:09:00 AM Flow Phase:Rest Qp : 3 @ 11:09:00 AM Qs : 3 @ 11:09:00 AM Clinical Evaluation EBL: 5mL-10mL Procedural Details Procedure Consent Obtained. Pre-Procedure Time Out. Identified patient by full name and date of as verbalized by the patient/guarantor. Does the consent match the physician's order: Yes. Accurate & Complete Informed Consent: Yes. Inpatient/Outpatient History & Physical on Chart: Yes. If H&P is completed, is and addenduem needed: No; If yes, is the addendum complete: N/A. Visualize and Verify Site with Patient/Guarantor: N/A. Relevant Radiology Images available: Yes. Pre-op teaching completed and patient verbalized understanding. The risks, benefits, and alternatives of sedation and/or procedure were discussed by physician. The patient agrees to continue. Procedure started. [facility] Clinical Fraility Score: 6: Moderately Frail. Fish House Worker Indications: Worsening Angina. Chest Pain Symptom Assessment: Typical Angina Symptoms. Correct patient, site and procedure confirmed by cath team. Current diagnosis: Chest Pain. PERRLA. Strong, equal hand biomedical specialist bilaterally. Lungs clear x 5 lobes. IV Site on Arrival: 20 gauge in the right anticubital. IV Site on Arrival: 20 gauge in the left anticubital. IV Fluids: 0.9% NaCl at KVO. 0 mL infused prior to cath lab radiology technician. Pre Procedural Pulses: bilateral dorsalis pedis was 1+. Pre Procedural Pulses: bilateral posterior tibial was 1+. Pre Procedural Pulses: bilateral radial was 3+. Oxygen started at 5liters/min via nasal canula. right groin was prepped with chloroprep then draped in the usual sterile fashion. right radial was prepped with chloroprep then draped in the usual sterile fashion. right brachial was prepped with chloroprep then draped in the usual sterile fashion. Baseline sample Acquired. HR: 88 BPM. Physician arrived. Physician scrubbed in. Immediate Pre-Procedure Time Out. Correct Patient: Yes; Correct Procedure: Yes; Correct Site: Yes; Correct Patient Position: Yes; Correct Supplies: Yes; Dried Flammable Prep: Yes; Blood Products Available: N/A;. Sheath wire inserted through the right brachial IV catheter. IV catheter out OTW. Lidocaine 1% infiltrated to the right brachial. [place] MON catheter inserted. [place] wire inserted. Wire out. Oximetry samples were obtained. Normal venous range: 60-85%. Normal arterial range: 95-100%. Pressure measurements obtained. [place] out. Lidocaine 1% infiltrated to the right radial. Arterial access obtained. A 5 ecuadorean TIG catheter in over wire. Multiple views taken of left coronary artery. Catheter redirected to the RCA. Multiple views taken of right coronary artery. Catheter removed over the exchange wire. 6 ecuadorean XB 3 guide catheter was inserted over the wire. Runthrough guidewire was advanced through the guide catheter to lesion in the OM. Balloon inserted to lesion in the OM. Inflation number : 1 A AB TREK 2.50X12 RX BALLOON was prepped and advanced across the 2nd Ob Catherine , then inflated to 10 JANIYA for 0:11 seconds. Inflation number: 2 The AB TREK 2.50X12 RX BALLOON was reinflated across the 2nd Ob [place], to 10 JANIYA for 0:10 seconds. Balloon out. Results checked. Inflation Number : 3 A JESSICA Higginbotham SHAY 2.5X15 KEON -Lot Number# _[id number] EXP: 09/02/2026 was prepped and advanced across the 2nd Ob Catherine. The stent was deployed at 12 JANIYA for 0:20 seconds. Stent balloon out over wire. Results checked. A second Runthrough guidewire was advanced through the guide catheter to lesion in the mid Circ. Inflation number: 1 The AB TREK 2.50X12 RX BALLOON was reinflated across the Mid CX, to 10 JANIYA for 0:14 seconds. Inflation number: 2 The AB TREK 2.50X12 RX BALLOON was reinflated across the Mid CX, to 12 JANIAY for 0:19 seconds. Balloon out. Inflation number : 3 A JESSICA MCKEON EUPHORA RX [id number] BALLOON was prepped and advanced across the Mid CX , then inflated to 14 JANIYA for 0:17 seconds. Balloon out. Wires out. Results checked. ACT drawn. Results out of range high seconds. Therapeutic limits - pre-heparin administration 90-150 seconds and monitoring heparin during a vascular procedure >250 seconds. Guide catheter out. Vital chart was stopped. A TR Band was successful obtaining hemostatsis at the Right Radial artery insertion site. A Manual Compression was successful obtaining hemostatsis at the Right Brachial Vein insertion site. Post Procedure: Pulses reassessed and unchanged. PERRLA. Strong, equal hand biomedical specialist bilaterally. No VTE prophylaxis required. Post-op diagnosis: Stent to OM2. Medication's Wasted: Heparin = 4000 units. Medication's Wasted: Nitro = 49.6 mcg. Medication's Wasted: Lidocaine 1% = 17 mL. Medication's Wasted: Other = Fentanyl 50 mcg. Total IV fluids: 38 mL. Complications: None. Estimated blood loss: 5mL-10mL. Responsiveness - Normal response to verbal stimuli; alert and oriented, PERRLA. Airway - Unaffected, no intervention required; spontaneous ventilation. Circulation: W/N/L, pulses unchanged. Nausea/Vomiting: No. Procedure completed. Patient transferred by stretcher to CPRU. Access Site Site: Right Brachial Vein Sheath Size: 6 Fr Hemostasis Method: Manual Compression Hemostasis Success: Successful Site: Right Radial artery Sheath Size: 6 Fr Hemostasis Method: TR Band Hemostasis Success: Successful Procedure Medications Start: 10:15 AM Stop: 10:15 AM Medication: Versed 1 mg and Fentanyl 25 mcg Route: I.V. Start: 10:28 AM Stop: 10:28 AM Medication: Versed Amount: 1 mg Route: I.V. Start: 10:29 AM Stop: 10:29 AM Medication: Fentanyl Amount: 25 mcg Route: I.V. Start: 10:32 AM Stop: 10:32 AM Medication: Nitrogylcerin Amount: 200 mcg Route: I.A. Start: 10:34 AM Stop: 10:34 AM Medication: Heparin Amount: 5000 units Route: I.V. Start: 10:40 AM Stop: 10:40 AM Medication: Nitrogylcerin Amount: 200 mcg Route: I.A. Start: 10:42 AM Stop: 10:42 AM Medication: Heparin Amount: 2000 units Route: I.V. Start: 11:00 AM Stop: 11:00 AM Medication: Plavix Amount: 300 mg Route: P.O. Start: 11:00 AM Stop: 11:00 AM Medication: 0.9% Saline Amount: 100 ml Route: I.VMarisol guidry I, the attending physician, have reviewed and verified all procedure medications. Yes, all medications given per verbal order History/Risk Factors Hypertension: No Dyslipidemia: No Peripheral Arterial Disease (PAD): Yes Myocardial Infarction (AK): Yes Obesity: No Tobacco Use: Former Prior Interventions PCI: Yes CABG: No Valve Surgery: No Date of PCI: 12/17/2023 Report Signatures Finalized by Cole Prieto MD on 09/28/2024 03:10 PM
[2024-09-11 09:19] LABS: Basophils % 0.3 %; Eosinophils # 0.3 10^3/uL (0.0-0.8); Eosinophils % 3.3 %; Hematocrit 39.3 % (36-47); Lymphocytes # 1.8 10^3/uL (0.8-4.8); Lymphocytes % 20.9 %; Mean Corpuscular Hemoglobin 28.1 pg (27-33); Mean Corpuscular Volume 90.6 fl (85-98); Mean Platelet Volume 8.9 fL (7.4-10.4); Monocytes # 0.5 10^3/uL (0.2-0.9); Monocytes % 5.8 %; Neutrophils # 6.14 10^3/uL (1.8-7.7); Neutrophils % 69.6 %; Nucleated Red Blood Cells % 0 %; Platelet Count 285 10^3/cmm (157-399); Red Blood Count 4.34 10^6/uL (3.85-5.65); Red Cell Distribution Width 13.6 % (12.1-15.1); White Blood Count 8.82 10^3/uL (3.29-11.43)
[2024-09-11 09:34] LABS: Anion Gap 14.4 (5-19); Blood Urea Nitrogen 12 mg/dL (8-23); Calcium 9.4 mg/dL (8.5-10.5); Carbon Dioxide 32 mmol/L (22-29); Chloride 97 mmol/L (98-107); Glomerular Filtration Rate 101.6 mL/min (90-130); Glucose 105 mg/dL (65-115); Osmolality Calculated 288 mOsm/kg (285-295); Potassium 4.4 mmol/L (3.5-5.1); Sodium 139 mmol/L (136-145)
[2024-09-11] MEDS: diphenhydrAMINE 50 mg Capsule PO (09:43)
--- NOTE | 2024-09-11 10:04 | W.PM.OPSUD ---
Surgery/Procedure H&P Update DATE OF PROCEDURE: September 11, 2024 DATE H&P PERFORMED: 09/04/24 H&P UPDATE INFORMATION: I have reviewed H&P completed within last 30 days, I have examined patient prior to procedure and No changes to prior documentation PREOP DIAGNOSIS: Worsening dyspnea on exertion PRIMARY INDICATION FOR PROCEDURE: Worsening dyspnea on exertion PLANNED PROCEDURE: Operation Date: 09/11/24 10:00 Proposed Procedures p Cardiac Catheterization - RLHC w/wo LV & Boaz(Bilateral) - Cole Prieto M.D Possible percutaneous coronary intervention PATIENT REASSESSED PRIOR TO SEDATION, WITH NO CHANGE NOTED: Yes PHYSICAL EXAM: alert, oriented x 3, clear to auscultation bilaterally and regular rate & rhythm AIRWAY EVAL/ANESTHESIA PLAN: normal airway, ASA III, Local Anesthesia, Risks, benefits & alternatives of sedation and/or procedure discussed and Patient agrees to continue as planned ADDITIONAL INFORMATION: Moderate sedation
[2024-09-11 10:42] LABS: Arterial Blood Gas Hematocrit 37.4 % (37-47); Blood Gas Operator Identificat gc; Blood Gas Sample Site Not specified; Blood Gas Sample Type Not specified; Carboxyhemoglobin 1.4 %THgb (0.4-20.1); HGB O2 Sat 64.4 % (95-100); Methemoglobin 0.2 % (0.4-1.5); Total Hemoglobin 12.2 g/dL (12-16)
[2024-09-11 10:44] LABS: Arterial Blood Gas Hematocrit 36.4 % (37-47); Blood Gas Operator Identificat gc; Blood Gas Sample Site Not specified; Blood Gas Sample Type Not specified; Carboxyhemoglobin 1.1 %THgb (0.4-20.1); HGB O2 Sat 95.7 % (95-100); Methemoglobin 0.2 % (0.4-1.5); Total Hemoglobin 11.9 g/dL (12-16)
--- NOTE | 2024-09-11 11:19 | PM.PROC ---
Procedure Note: Date of procedure: 09/11/24 Pre-procedure diagnosis: Worsening dyspnea on exertion/ Chest pain Post-procedure diagnosis: other (Severe OM 2 stenosis s/p PCI with 1 stent) Procedure: Patent left main, LCx and LAD prior stents. OM 2 has severe ostial disease s/p PCI with 1 stent. RCA is a small sized, non dominant vessel. Continue aspirin and plavix High intensity statin therapy Estimated blood loss (mL): 10 Complications: None Condition: stable Disposition: floor Coding Level of Care Code Acute Code for Rama Gomez
--- NOTE | 2024-09-11 16:23 | PC.NURSE ---
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 Dressing in place to right brachial and tr band in place to right wrist. TR band removed at this time. No s/s of bleeding or hematoma formation noted. Covered right wrist with 2x2 and coban. Instructed patient on site care with restrictions. Patient verbalized complete understanding.
[2024-09-11] MEDS: ALPRAZolam 0.5 mg Tablet PO (16:46)
[2024-09-11] MEDS: temazepam 15 mg Capsule PO (20:29)
[2024-09-12 00:34] VITALS: BP 110/70; PULSE 60; RESP 23; TEMP 36.6; O2SAT 94
[2024-09-12] MEDS: acetaminophen 325 mg Tablet 650 MG PO (03:33)
[2024-09-12 03:42] VITALS: BP 135/82; PULSE 74; RESP 26; O2SAT 98
[2024-09-12 03:49] LABS: Basophils % 0.2 %; Eosinophils # 0.2 10^3/uL (0.0-0.8); Eosinophils % 3.5 %; Hematocrit 35.4 % (36-47); Lymphocytes # 1.3 10^3/uL (0.8-4.8); Lymphocytes % 19.5 %; Mean Corpuscular HGB Conc 30.5 g/dL (30-55); Mean Corpuscular Hemoglobin 28.9 pg (27-33); Mean Corpuscular Volume 94.7 fl (85-98); Mean Platelet Volume 8.9 fL (7.4-10.4); Monocytes # 0.5 10^3/uL (0.2-0.9); Monocytes % 7.3 %; Neutrophils # 4.57 10^3/uL (1.8-7.7); Neutrophils % 69.3 %; Nucleated Red Blood Cells % 0 %; Platelet Count 195 10^3/cmm (157-399); Red Blood Count 3.74 10^6/uL (3.85-5.65); Red Cell Distribution Width 13.8 % (12.1-15.1); White Blood Count 6.58 10^3/uL (3.29-11.43)
[2024-09-12 04:24] LABS: Anion Gap 12.1 (5-19); Blood Urea Nitrogen 12 mg/dL (8-23); Calcium 8.6 mg/dL (8.5-10.5); Carbon Dioxide 31 mmol/L (22-29); Chloride 102 mmol/L (98-107); Creatinine Clr Calc Pharmacy 89.1404; Glomerular Filtration Rate 101.6 mL/min (90-130); Glucose 92 mg/dL (65-115); Osmolality Calculated 291 mOsm/kg (285-295); Potassium 4.1 mmol/L (3.5-5.1); Sodium 141 mmol/L (136-145)
[2024-09-12 07:54] VITALS: BP 98/63; PULSE 80; RESP 26; TEMP 36.7; O2SAT 98
[2024-09-12] MEDS: clopidogrel 75 mg Tablet PO (08:25)
[2024-09-12] MEDS: aspirin 81 mg EC Tablet PO (08:25)
[2024-09-12] MEDS: ALPRAZolam 0.5 mg Tablet PO (08:26)
--- NOTE | 2024-09-12 09:20 | PC.NURSE ---
Patient discharged to home. Instuction provided regarding follow up needs and site care with restrictions. Patient verbalized complete understanding. Dressing to right wrist remains c,d,i without s/s of bleeding or hematoma formation observed. Patient taken to waiting room to wait for transportation.
--- NOTE | 2024-09-12 14:25 | P.DS_ITS ---
<Statement entered by Cole Prieto M.D - 09/14/24 13:46> Patient was evaluated and cared for in conjunction with an advanced practice practitioner.? I personally examined the patient and reviewed the chart and all pertinent data including imaging, telemetry, and laboratory results.? I discussed the patient in detail with the advanced practice practitioner.? Please see? their note for complete discharge summary, testing results and agreed upon plan of care for the patient. Patient is doing better. No chest pain. S/p PCI. Dual antiplatelet therapy GENERAL: Patient is alert, awake and oriented x3. HEART: Regular S1 and S2 LUNGS: Diminished air entry CENTRAL NERVOUS SYSTEM: Grossly nonfocal. EXTREMITIES: Lower extremities without edema bilaterally. Discharge Providers Date of Admission: 09/11/2024 Date of Discharge: September 12, 2024 Attending Provider at Admission: Cole Prieto M.D Attending Provider at Discharge: Cole Prieto M.D Primary Care Provider: Ronald Alford DO Reason for Visit Reason for Visit: [id number] Brief History: Patient is a 59-year-old female with past medical history of CAD with bifurcat ion stenting of the left main in [place] 2023, PAD, COPD. She was seen in the office in July with worsening shortness of breath and chest tightness, outpatient coronary angiogram was planned at that time however she was then admitted for a COPD exacerbation and pneumonia. She was brought in for coronary angiogram yesterday. Hospital Course Hospital Course Coronary angiography revealed severe second obtuse marginal stenosis which was treated with KEON x 1. She has a patent left main, left circumflex and LAD has patent previously placed stents. The RCA is small caliber nondominant. She has done well overnight, no chest pain or shortness of breath. No complications with right radial cath site. She will be discharged home today with aspirin and Plavix, statin, she can continue carvedilol 3.125 mg daily, Lasix 20 mg daily. Renal function is normal this morning. Follow-up with cardiology clinic in 7 to 10 days. Physical Exam Const: COMMON NORMALS: no acute distress and patient oriented x3 GENERAL APPEARANCE: cooperative ORIENTATION/CONSCIOUSNESS: Yes awake, Yes oriented to person, Yes oriented to place and Yes oriented to time Chest: COMMONS NORMALS: normal inspection of the chest and normal palpation of entire chest wall CHEST: Yes Symmetrical chest wall rise Resp: COMMON NORMALS: normal respiratory effort, No retractions, No use of accessory muscles and clear to auscultation bilaterally AUSCULTATION: clear to auscultation bilaterally Cardio: COMMON NORMALS: regular rate, regular rhythm, S1 normal heart sound present, S2 normal heart sound present, No gallops present (Cardio), No clicks present (Cardio), No murmurs present (Cardio) and No rub (Cardio) RATE: regular rate RHYTHM: regular rhythm HEART SOUNDS: S1 normal heart sound present and S2 normal heart sound present PERIPHERAL PULSES: radial pulses present positive right 2+ and femoral pulses present positive right 2+ Neuro: COMMON NORMALS: patient oriented x3 and moves all extremities SENSORIUM/ORIENTATION: Yes oriented to person, Yes oriented to place and Yes oriented to time Skin: WOUNDS: Yes surgical site (no hematoma palpable) Details: no odor Discharge Data Studies Completed and Pending Pending at discharge Category Date Time Status WE[employer]ING [employer] request for service Routine Exams 09/11/24 09:00 Taken Laboratory Results WBC 6.58 10^3/uL (3.29-11.43) 09/12/24 03:28 RBC 3.74 10^6/uL (3.85-5.65) L 09/12/24 03:28 Hgb 10.80 g/dL (11.27-16.99) L 09/12/24 03:28 Hct 35.4 % (36-47) L 09/12/24 03:28 MCV 94.7 fl (85-98) 09/12/24 03:28 MCH 28.9 pg (27-33) 09/12/24 03:28 MCHC 30.5 g/dL (30-55) 09/12/24 03:28 RDW 13.8 % (12.1-15.1) 09/12/24 03:28 Plt Count 195 10^3/cmm (157-399) D 09/12/24 03:28 MPV 8.9 fL (7.4-10.4) 09/12/24 03:28 Neut % (Auto) 69.3 % 09/12/24 03:28 Lymph % (Auto) 19.5 % 09/12/24 03:28 Green % (Auto) 7.3 % 09/12/24 03:28 Eos % (Auto) 3.5 % 09/12/24 03:28 Baso % (Auto) 0.2 % 09/12/24 03:28 Neut # (Auto) 4.57 10^3/uL (1.8-7.7) 09/12/24 03:28 Lymph # (Auto) 1.3 10^3/uL (0.8-4.8) 09/12/24 03:28 Green # (Auto) 0.5 10^3/uL (0.2-0.9) 09/12/24 03:28 Eos # (Auto) 0.2 10^3/uL (0.0-0.8) 09/12/24 03: Baso # (Auto) 0.0 10^3/uL (0.0-0.1) 09/12/24 03: Nucleated RBC % (auto) 0 % 09/12/24 03: Nucleated RBCs # 0.0 /100WBC 09/12/24 03:28 Specimen Type Not specified 09/11/24 10:30 Sample Site Not specified 09/11/24 10:30 Matty Test N/a 09/11/24 10:30 A-a O2 Gradient Not Reportable 09/11/24 10:30 Hematocrit 36.4 % (37-47) L 09/11/24 10:30 Hgb O2 Saturation 95.7 % (95-100) 09/11/24 10:30 Carboxyhemoglobin 1.1 %THgb (0.4-20.1) 09/11/24 10:30 Methemoglobin 0.2 % (0.4-1.5) L 09/11/24 10:30 Total Hemoglobin 11.9 g/dL (12-16) L 09/11/24 10:30 O2 Delivery Device Not Reportable 09/11/24 10:30 Restaurant Busser ID gc 09/11/24 10:30 Sodium 141 mmol/L (136-145) 09/12/24 03:28 Potassium 4.1 mmol/L (3.5-5.1) 09/12/24 03:28 Chloride 102 mmol/L (98-107) 09/12/24 03:28 Carbon Dioxide 31 mmol/L (22-29) H 09/12/24 03:28 Anion Gap 12.1 (5-19) 09/12/24 03:28 BUN 12 mg/dL (8-23) 09/12/24 03:28 Creatinine 0.6 mg/dL (0.5-0.9) 09/12/24 03:28 GFR Calculation 101.6 mL/min (90-130) 09/12/24 03:28 Glucose 92 mg/dL (65-115) 09/12/24 03:28 Calculated Osmolality 291 mOsm/kg (285-295) 09/12/24 03:28 Calcium 8.6 mg/dL (8.5-10.5) 09/12/24 03:28 Vitals Last Vital Signs Temp 98.0 F 09/12/24 07:54 Pulse 80 09/12/24 07:54 Resp 26 H 09/12/24 07:54 BP 98/63 09/12/24 07:54 Pulse Ox 98 09/12/24 07:54 O2 Del Method Nasal Cannula 09/12/24 07:54 O2 Flow Rate 4 09/12/24 03:42 Discharge Plan Discharge Patient Disposition: Home Prescriptions: Continued albuterol sulfate 90 mcg/actuation HFA aerosol inhaler 2 puff INHALATION Q6H PRN (Reason: bronchospasm) Qty: 6.7 11RF atorvastatin 40 mg tablet 40 mg PO DAILY Qty: 90 3RF alprazolam 1 mg tablet 1 mg PO DAILY PRN (Reason: anxiety) Qty: 30 2RF furosemide [Lasix] 20 mg tablet 20 mg PO DAILY Qty: 30 0RF montelukast [Singulair] 10 mg tablet 10 mg PO DAILY Qty: 90 3RF potassium chloride 8 mEq capsule, extended release 8 meq PO DAILY Qty: 30 0RF aspirin 81 mg tablet,delayed release (DR/EC) 81 mg PO DAILY Qty: 30 0RF ezylrjcvbj-dbidkfrqsrcln-oqft 50-325-40 mg tablet 1 tab PO TID carvedilol 12.5 mg Tablet 3.125 mg PO BID Qty: 60 0RF sertraline 100 mg tablet 100 mg PO DAILY Rx Instructions: TAKE ONE TABLET BY MOUTH EVERY 24 HOURS clopidogrel 75 mg tablet 75 mg PO DAILY Rx Instructions: TAKE ONE TABLET BY MOUTH ONCE DAILY buspirone 15 mg tablet 15 mg PO BID Rx Instructions: TAKE ONE TABLET BY MOUTH TWICE DAILY tiotropium bromide [Spiriva with HandiHaler] 18 mcg Capsule, W/Inhalation Device 1 cap INHALATION DAILY Rx Instructions: puncture 1 cap using device; one dose = 2 inhalations Discharge Orders: Discharge Order (Routine); Ordered 09/12/24 Ordered By: Geri Dunbar Referrals: Ronald Alford DO [Primary Care Provider, Family Practice] - 09/18/24 10:15 am Geri Dunbar FNP [Nurse Practitioner, Cardiology] - 09/19/24 2:00 pm Diet: Advance as tolerated Activity: Increase activity as tolerated Patient Instructions: Aspirin (By mouth), Clopidogrel (By mouth), Coronary Angioplasty (DC), Chest Pain Stoplight, Post Angiogram Home Care Instructions Activity Restrictions/Additional Instructions: No lifting over 5 pounds for the next 4 days. Print Language: Croatian Discharge Date/Time: 09/12/24 09:10 Discharge Attestations Time Spent in Discharge Care*: less than 30 min Quality Metrics Clinical Quality Measures [ No reported AMI, CVA or VTE this stay] Coding Level of Care Code Acute Code for Chg Fwharika
== END 2024-09-12 09:10 | disposition home or self-care (01) ==
LOC: CCL 08:35 → CSU 16:04
PROVIDERS: Nurse Practitioner Family; PCP Family Medicine; Visit Provider Internal Medicine
DX: I25.10 Atherosclerotic heart disease of native coronary artery without angina pectoris (principal); Z95.5 Presence of coronary angioplasty implant and graft; I73.9 Peripheral vascular disease, unspecified; Z87.891 Personal history of nicotine dependence; I25.2 Old myocardial infarction; J44.9 Chronic obstructive pulmonary disease, unspecified; Z86.79 Personal history of other diseases of the circulatory system; Z79.82 Long term (current) use of aspirin; F41.8 Other specified anxiety disorders
CPT/HCPCS: 36415; 80048; 82810; 85025; 85347; 92920; 93456; 96374; 99152; 99153; C1725; C1751; C1769; C1874; C1887; C1894; C9600; J1644; J2250; J3010; J3490; J7030; J9999; Q0163; Q9967

== ENCOUNTER → 2024-12-25 13:22 | Outpatient (BNVA) | payer MEDICARE, SELFPAY | PROVIDERS: PCP Family Medicine; Visit Provider Internal Medicine | DX: I25.10 Atherosclerotic heart disease of native coronary artery without angina pectoris (principal); J44.9 Chronic obstructive pulmonary disease, unspecified; R09.02 Hypoxemia; Z87.891 Personal history of nicotine dependence | CPT/HCPCS: 99214 ==

== ENCOUNTER 2025-01-02 04:22 | Emergency (ER) | payer MEDICARE, SELFPAY ==
[2025-01-02 04:22] VITALS: BP 135/81; PULSE 115; RESP 26; TEMP 36.9; O2SAT 93; BMI 28.3
--- NOTE | 2025-01-02 04:36 | XRR_ITS ---
PROCEDURE INFORMATION: Exam: XR Chest Exam date and time: 01/02/2025 4:47 AM Age: 59 years old Clinical indication: Shortness of breath; Prior surgery; Surgery date: 6+ months; Surgery type: Stents; Additional info: SOB TECHNIQUE: Imaging protocol: Radiologic exam of the chest. Views: 1 view. COMPARISON: CR XR chest 1V portable [id number] 08/20/2024 6:23 PM FINDINGS: Lungs: Unremarkable. No consolidation. Pleural spaces: Unremarkable. No pleural effusion. No pneumothorax. Heart/Mediastinum: Unremarkable. No cardiomegaly. Bones/joints: Unremarkable. XR/XR chest 1V portable [id number] IMPRESSION: No acute findings.
--- NOTE | 2025-01-02 04:36 | ED_ITS ---
HPI - SOB/Dyspnea 2 General: Chief Complaint: Shortness of Breath/Dyspnea Stated Complaint: sob Time Seen by Provider: 01/02/25 04:30 History of Present Illness: HPI Narrative: 59-year-old female with history of COPD on home oxygen 3?4 L via nasal cannula (NC) presented via EMS for acute shortness of breath. Per EMS, patient was tachycardic and hypoxic at home; called 911. EMS administered Solu- Medrol (methylprednisolone), dexamethasone, and multiple nebulized breathing treatments during a ~30-mile transport, after which patient felt much better. On arrival, she was on 5 L NC; clinician titrated down to 3 L to assess response. Patient reports cough with productive ?ugly? sputum. Denies leg swelling. Reports headache and requests analgesic. Patient notes a prior ED visit for pneumonia in August. Clinician discussed that viral illnesses (e.g., rhinovirus, enterovirus) can exacerbate COPD and planned nasal swab. Plan to ?check for pneumonia? also discussed. Related Data Previous Rx's ?Medication ?Instructions ?Recorded aspirin 81 mg tablet,delayed 81 mg PO DAILY #30 tabs 0 09/10/24 release potassium chloride 8 mEq 8 meq PO .COMPLEX #90 caps 0 09/18/24 capsule,extended release carvedilol 3.125 mg tablet 3.125 mg PO BID #180 tabs 0 10/22/24 atorvastatin 40 mg tablet 40 mg PO ONCE 90 days #90 ta bs 11/11/24 furosemide 40 mg tablet 40 mg PO QDAY #90 tabs 11/13 montelukast 10 mg tablet 10 mg PO DAILY #90 tabs 10/17 (Singulair) alprazolam 1 mg tablet 1 mg PO DAILY PRN anxiety #3 0 tabs 12/09/24 clopidogrel 75 mg tablet See Rx Instructions .Route 0 12/09/24 .COMPLEX #30 tabs lisinopril 40 mg tablet See Rx Instructions .Route 0 12/09/24 .COMPLEX #90 tabs Spiriva with HandiHaler 18 mcg and 1 cap inhalation DA AUDELIA #60 12/18/24 inhalation capsules (tiotropium inhalations bromide) albuterol sulfate 90 mcg/actuation 2 puff inhalation Q 6H PRN 12/18/24 aerosol inhaler bronchospasm #6.7 grams buspirone 15 mg tablet See Rx Instructions .Route 0 12/18/24 .COMPLEX #180 tabs sertraline 100 mg tablet See Rx Instructions .Route 0 12/18/24 .COMPLEX #30 tabs prednisone 20 mg tablet 40 mg (2 x 20 mg) PO DAILY 5 days 01/02/25 #10 tabs Allergies Allergy/AdvReac Type Severity Reaction Status Date / Time bupropion (From Zyban) Allergy Intermediate rash Verified 12/25/24 14:15 influenza virus vaccine qs Allergy Intermediate swelling Verified 12/25/24 14:15 [id number] (36 mos, up) (From Fluarix Quad) rofecoxib (From Vioxx) Allergy Intermediate rash Verified 12/25/24 14:15 chocolate Allergy ALGY-Hives Verified 12/25/24 14:15 PFS ED 2 PFSH: Medical History (Updated 01/02/25 @ 05:11 by Ronald Boyce MD) Coronary artery disease Peripheral arterial disease Insomnia Fatty liver COPD (chronic obstructive pulmonary disease) Anxiety associated with depression Surgical History History of coronary artery stent placement History of appendectomy H/O abdominal hysterectomy Social History Smoking and tobacco/nicotine status: former use of tobacco/nicotine Quit status (tobacco/nicotine): has quit using Year quit tobacco: 2023 Former quit date comment: 07/26/23 Alcohol intake: former Female Reproductive History: Spontaneous abortions: No Physical Exam 2 Const: COMMON NORMALS: no acute distress, patient oriented x3 and alert HENMT: COMMON NORMALS: normocephalic and atraumatic HEAD & SCALP: n ormocephalic and atraumatic Eye: COMMON NORMALS: Equal, round and reactive pupils present, EOMs intact bilaterally and no scleral icterus PUPIL: Yes Equal, round and reactive pupils present Resp: OTHER: Mild wheezes; mild tachypnea. Cardio: COMMON NORMALS: regular rate, regular rhythm and No murmurs present (Cardio) RATE: regular rate RHYTHM: regular rhythm GI: COMMON NORMALS: Normal to inspection, nondistended, normoactive bowel sounds present, Soft to palpation and non-tender PALPATION: Yes Soft to palpation Neuro: COMMON NORMALS: patient oriented x3 SENSORIUM/ORIENTATION: Yes alert Skin: COMMON NORMALS: no rashes or lesions noted GENERAL SKIN EXAM: no rashes or lesions noted Course 2 Vital Signs: Vital signs: Vital Signs Temperature 98.4 F 01/02/25 04:22 Pulse Rate 88 01/02/25 05:40 Respiratory Rate 16 01/02/25 05:40 Blood Pressure 99/62 01/02/25 05:40 Pulse Oximetry 92 01/02/25 05:40 Oxygen Delivery Me thod Nasal Cannula 01/02/25 04:46 Oxygen Flow Rate 3 01/02/25 04:46 MDM - SOB/Dyspnea Medical Decision Making 59-year-old female with COPD on home oxygen presents with acute shortness of breath improved after EMS-administered steroids and nebulized treatments. Reports productive cough; prior pneumonia in August; denies leg swelling; has headache. COPD exacerbation likely, possibly triggered by upper respiratory infection per discussion. Pneumonia considered given productive cough and prior episode; no edema to suggest volume overload. Plan includes nasal swab for respiratory viruses, evaluation for pneumonia (e.g., chest radiograph [CXR]) and sepsis labs as discussed. Oxygen titration to 3 L NC with monitoring. IV fluids and medication for headache to be given. Further nebulized treatments as needed if symptoms worsen. EKG: Time?0426?sinus tachycardia, rate of 101, no ST segment elevation or depression, no T wave inversions, IN interval 112, QTc = 368 Lab Data 01/02/25 04:33 01/02/25 04:33 Labs/Radiology: Radiology Impressions Chest X-Ray 01/02/25 04:36 IMPRESSION: No acute findings. Laboratory Results WBC 12.41 10^3/uL (3.29-11.43) H 01/02/25 04:33 RBC 4.52 10^6/uL (3.85-5.65) 01/02/25 04:33 Hgb 12.80 g/dL (11.27-16.99) 01/02/25 04:33 Hct 41.2 % (36-47) 01/02/25 04:33 MCV 91.2 fl (85-98) 01/02/25 04:33 MCH 28.3 pg (27-33) 01/02/25 04:33 MCHC 31.1 g/dL (30-55) 01/02/25 04:33 RDW 13.5 % (12.1-15.1) 01/02/25 04:33 Plt Count 366 10^3/cmm (157-399) 01/02/25 04:33 MPV 8.9 fL (7.4-10.4) 01/02/25 04:33 Neut % (Auto) 76.9 % 01/02/25 04:33 Lymph % (Auto) 13.8 % 01/02/25 04:33 [place] % (Auto) 5.2 % 01/02/25 04:33 Eos % (Auto) 3.5 % 01/02/25 04:33 Baso % (Auto) 0.4 % 01/02/25 04:33 Neut # (Auto) 9.54 10^3/uL (1.8-7.7) H 01/02/25 04:33 Lymph # (Auto) 1.7 10^3/uL (0.8-4.8) 01/02/25 04:33 [place] # (Auto) 0.7 10^3/uL (0.2-0.9) 01/02/25 04:33 Eos # (Auto) 0.4 10^3/uL (0.0-0.8) 01/02/25 04:33 Baso # (Auto) 0.1 10^3/uL (0.0-0.1) 01/02/25 04:33 Nucleated RBC % (auto) 0 % 01/02/25 04:33 Nucleated RBCs # 0.0 /100WBC 01/02/25 04:33 Sodium 140 mmol/L (136-145) 01/02/25 04:33 Potassium 4.4 mmol/L (3.5-5.1) 01/02/25 04:33 Chloride 94 mmol/L (98-107) L 01/02/25 04:33 Carbon Dioxide 38 mmol/L (22-29) H 01/02/25 04:33 Anion Gap 12.4 (5-19) 01/02/25 04:33 BUN 12 mg/dL (8-23) 01/02/25 04:33 Creatinine 0.7 mg/dL (0.5-0.9) 01/02/25 04:33 GFR Calculation 85.1 mL/min (90-130) L 01/02/25 04:33 Glucose 124 mg/dL (65-115) H 01/02/25 04:33 Calculated Osmolality 291 mOsm/kg (285-295) 01/02/25 04:33 Lactic Acid 1.5 mmol/L (0.5-2.2) 01/02/25 04:33 Calcium 9.4 mg/dL (8.5-10.5) 01/02/25 04:33 Total Bilirubin 0.4 mg/dL (0.15-1.2) 01/02/25 04:33 AST 14 U/L (0-32) 01/02/25 04:33 ALT 11 U/L (0-33) 01/02/25 04:33 Alkaline Phosphatase 145 U/L (35-105) H 01/02/25 04:33 Total Protein 7.7 g/dL (6.6-8.7) 01/02/25 04:33 Albumin 4.4 g/dL (3.5-5.2) 01/02/25 04:33 Globulin 3.3 g/dL (1.3-4.6) 01/02/25 04:33 Influenza A (PCR) Negative (Negative) 01/02/25 04:40 Influenza Type B (PCR) Negative (Negative) 01/02/25 04:40 RSV (PCR) Negative (Negative) 01/02/25 04:40 SARS-CoV-2 (PCR) Negative (Negative) 01/02/25 04:40 All radiology interpretation(s) finalized by discharge Discharge Plan Discharge Patient Disposition: Home Clinical Impression: Acute exacerbation of chronic obstructive pulmonary disease Condition: Stable Prescriptions: New prednisone 20 mg tablet 40 mg PO DAILY 5 Days Qty: 10 0RF Rx Instructions: days 11-21 of therapy No Action carvedilol 3.125 mg tablet 3.125 mg PO BID Qty: 180 2RF potassium chloride 8 mEq capsule, extended release 8 meq PO .COMPLEX Qty: 90 2RF Rx Instructions: Take every time you take a Furosemide. aspirin 81 mg tablet,delayed release (DR/EC) 81 mg PO DAILY Qty: 30 0RF atorvastatin 40 mg tablet 40 mg PO ONCE 90 Days Qty: 90 0RF furosemide 40 mg tablet 40 mg PO QDAY Qty: 90 2RF montelukast [Singulair] 10 mg tablet 10 mg PO DAILY Qty: 90 3RF clopidogrel 75 mg tablet See Rx Instructions .ROUTE .COMPLEX Qty: 30 0RF Dose Instruction: Take 1 tablet by mouth once daily Rx Instructions: Take 1 tablet by mouth once daily lisinopril 40 mg tablet See Rx Instructions .ROUTE .COMPLEX Qty: 90 1RF Dose Instruction: TAKE ONE TABLET BY MOUTH ONCE DAILY Rx Instructions: TAKE ONE TABLET BY MOUTH ONCE DAILY alprazolam 1 mg tablet 1 mg PO DAILY PRN (Reason: anxiety) Qty: 30 0RF sertraline 100 mg tablet See Rx Instructions .ROUTE .COMPLEX Qty: 30 0RF Dose Instruction: TAKE 1 TABLET BY MOUTH EVERY 24 HOURS Rx Instructions: TAKE 1 TABLET BY MOUTH EVERY 24 HOURS buspirone 15 mg tablet See Rx Instructions .ROUTE .COMPLEX Qty: 180 0RF Dose Instruction: Take 1 tablet by mouth twice daily Rx Instructions: Take 1 tablet by mouth twice daily albuterol sulfate 90 mcg/actuation HFA aerosol inhaler 2 puff INHALATION Q6H PRN (Reason: bronchospasm) Qty: 6.7 11RF tiotropium bromide [Spiriva with HandiHaler] 18 mcg capsule, w/inhalation device 1 cap INHALATION DAILY Qty: 60 5RF Rx Instructions: puncture 1 cap using device; one dose = 2 inhalations Discharge Orders: Discharge ED (Routine); Ordered 01/02/25 Ordered By: Ronald Boyce Referrals: Ronald Aflord DO [Primary Care Provider, [facility]] Discharge Diet: Usual diet Discharge Activity: Increase activity as tolerated Patient Instructions: COPD (Chronic Obstructive Pulmonary Disease) (ED), Patient Portal & Sheila Instructions Activity Restrictions/Additional Instructions: Fortunately, x-ray today does not show evidence of pneumonia. It appears you are suffering from a COPD exacerbation. Please use breathing treatments as needed and take the prescribed steroids to help keep your breathing from deteriorating Print Language: Azerbaijani Coding Level of Care Code ED Welder Journeyman for Rama Gomez
--- NOTE | 2025-01-02 04:37 | ECG_ITS ---
[facility] Date: 2025-01-02 Pat Name: Jesenia Ewing Department: Room: Gender: Female Dispatch Manager: : 1965 Requested By: Ronald Reyes Order Number: [id number] Barba MD: Cole Prieto M.D. Measurements Intervals [place] Rate: 101 P: 60 NM: 112 QRS: 45 QRSD: 90 T: 54 QT: 310 QTc: 403 Interpretive Statements SINUS TACHYCARDIA WITH SHORT NM INTERVAL LOW QRS VOLTAGE IN PRECORDIAL LEADS [QRS DEFLECTION < 1.0 mV IN CHEST LEADS] Compared to ECG 08/18/2024 18:26:25 Short NM interval now present Low QRS voltage now present Sinus rhythm no longer present Sinus arrhythmia no longer present Electronically Signed On 01-04-2025 13:13:13 CDT by Cole Prieto M.D. [id number]
[2025-01-02 04:45] LABS: Hematocrit 41.2 % (36-47); Hemoglobin 12.80 g/dL (11.27-16.99); Mean Corpuscular HGB Conc 31.1 g/dL (30-55); Mean Corpuscular Hemoglobin 28.3 pg (27-33); Mean Corpuscular Volume 91.2 fl (85-98); Nucleated Red Blood Cells % 0 %; Platelet Count 366 10^3/cmm (157-399); Red Blood Count 4.52 10^6/uL (3.85-5.65); White Blood Count 12.41 10^3/uL (3.29-11.43)
[2025-01-02 04:46] VITALS: BP 135/81; PULSE 104; RESP 22; O2SAT 90
[2025-01-02 05:02] LABS: Alanine Aminotransferase 11 U/L (0-33); Albumin Level 4.4 g/dL (3.5-5.2); Alkaline Phosphatase 145 U/L (35-105); Anion Gap 12.4 (5-19); Aspartate Amino Transferase 14 U/L (0-32); Blood Urea Nitrogen 12 mg/dL (8-23); Calcium 9.4 mg/dL (8.5-10.5); Carbon Dioxide 38 mmol/L (22-29); Chloride 94 mmol/L (98-107); Creatinine Clr Calc Pharmacy 74.4720; Globulin 3.3 g/dL (1.3-4.6); Glucose 124 mg/dL (65-115); Lactic Sepsis W/Reflex 1.5 mmol/L (0.5-2.2); Osmolality Calculated 291 mOsm/kg (285-295); Potassium 4.4 mmol/L (3.5-5.1); Sodium 140 mmol/L (136-145); Total Protein 7.7 g/dL (6.6-8.7)
[2025-01-02 05:22] LABS: Respiratory Syncytial Virus Ce NEGATIVE (Negative); SARS-CoV-2 PCR NEGATIVE (Negative)
[2025-01-02 05:40] VITALS: BP 99/62; PULSE 88; RESP 16; O2SAT 92
[2025-01-02 06:10] VITALS: PULSE 89; RESP 18; O2SAT 92
[2025-01-02 06:45] VITALS: PULSE 71; RESP 16; O2SAT 93
[2025-01-02 07:21] VITALS: PULSE 101; O2SAT 92
== END 2025-01-02 07:28 | disposition home or self-care (01) ==
PROVIDERS: Emergency Provider Student in an Organized Health Care Education/Training Program; PCP Family Medicine
DX: J44.1 Chronic obstructive pulmonary disease with (acute) exacerbation (principal); Z79.82 Long term (current) use of aspirin; Z79.02 Long term (current) use of antithrombotics/antiplatelets; Z11.52 Encounter for screening for COVID-19; Z87.891 Personal history of nicotine dependence; I25.10 Atherosclerotic heart disease of native coronary artery without angina pectoris; Z99.81 Dependence on supplemental oxygen
CPT/HCPCS: 36415; 71045; 80053; 83605; 85025; 87040; 87637; 93005; 96360; 99285; J7120; J9999

== ENCOUNTER → 2025-01-10 11:00 | Outpatient (BNVA) | payer MEDICARE, SELFPAY | PROVIDERS: PCP Family Medicine; Visit Provider Internal Medicine | DX: J44.9 Chronic obstructive pulmonary disease, unspecified (principal); J96.11 Chronic respiratory failure with hypoxia; Z99.81 Dependence on supplemental oxygen; Z87.891 Personal history of nicotine dependence | CPT/HCPCS: 99204 ==

== ENCOUNTER 2025-01-28 05:14 | Observation (INO) | payer MEDICARE, SELFPAY ==
[2025-01-28] VITALS (15 sets, daily range): BP systolic 78–116; BP diastolic 44–68; PULSE 67–87; RESP 16–22; TEMP 36.6–37.4; O2SAT 91–100; BMI 29.2; BMI 30.4
--- NOTE | 2025-01-28 05:16 | ECG_ITS ---
[facility] Test Date: 2025-01-28 Pat Name: Jesenia Ewing Department: Room: Gender: Female Mandarin Teacher: : 1965 Requested By: Lisa Mistry Order Number: [id number] Freda MD: Cole Prieto M.D. Measurements Intervals [place] Rate: 80 P: 42 CT: 126 QRS: 52 QRSD: 90 T: 61 QT: 367 QTc: 425 Interpretive Statements SINUS RHYTHM LOW QRS VOLTAGE IN PRECORDIAL LEADS [QRS DEFLECTION < 1.0 mV IN CHEST LEADS] Compared to ECG 01/02/2025 04:26:48 Sinus tachycardia no longer present Short CT interval no longer present Electronically Signed On 01-29-2025 16:55:51 CDT by Cole Prieto M.D. [id number]
--- NOTE | 2025-01-28 05:16 | XRR_ITS ---
PROCEDURE INFORMATION: Exam: XR Chest Exam date and time: 01/28/2025 05:17 AM Age: 59 years old Clinical indication: Shortness of breath TECHNIQUE: Imaging protocol: Radiologic exam of the chest. Views: 1 view. COMPARISON: CR (CHEST, ) 01/02/2025 04:47 AM FINDINGS: Lungs: Unremarkable. No consolidation. Pleural spaces: Unremarkable. No pleural effusion. No pneumothorax. Heart/Mediastinum: Coronary artery calcifications. Cardiac size and configuration is stable. Vasculature: Atherosclerotic vascular disease. Bones/joints: Osteopenia. XR/XR chest 1V portable [id number] IMPRESSION: No airspace disease.
[2025-01-28 05:27] LABS: Hematocrit 34.7 % (36-47); Hemoglobin 10.80 g/dL (11.27-16.99); Mean Corpuscular HGB Conc 31.1 g/dL (30-55); Mean Corpuscular Hemoglobin 28.3 pg (27-33); Mean Corpuscular Volume 91.1 fl (85-98); Nucleated Red Blood Cells % 0 %; Platelet Count 287 10^3/cmm (157-399); Red Blood Count 3.81 10^6/uL (3.85-5.65); White Blood Count 9.94 10^3/uL (3.29-11.43)
[2025-01-28 05:52] LABS: Troponin(5th) Baseline 12 ng/L (0-10)
[2025-01-28 06:02] LABS: Alanine Aminotransferase 13 U/L (0-33); Albumin Level 4.4 g/dL (3.5-5.2); Alkaline Phosphatase 113 U/L (35-105); Anion Gap 15.1 (5-19); Aspartate Amino Transferase 14 U/L (0-32); Blood Urea Nitrogen 15 mg/dL (8-23); Calcium 9.0 mg/dL (8.5-10.5); Carbon Dioxide 35 mmol/L (22-29); Chloride 94 mmol/L (98-107); Creatinine Clr Calc Pharmacy 84.7389; Globulin 2.2 g/dL (1.3-4.6); Glucose 112 mg/dL (65-115); NT Pro B Type Natriuretic Pept 336 pg/mL (0-125); Osmolality Calculated 290 mOsm/kg (285-295); Potassium 5.1 mmol/L (3.5-5.1); Sodium 139 mmol/L (136-145); Total Protein 6.6 g/dL (6.6-8.7)
[2025-01-28] MEDS: ondansetron 2 mg/ML SDV 2 mL 4 MG IVP (06:03)
[2025-01-28 06:07] LABS: Respiratory Syncytial Virus Ce NEGATIVE (Negative); SARS-CoV-2 PCR NEGATIVE (Negative)
--- NOTE | 2025-01-28 06:14 | W.ED.GENADLT ---
HPI - General Adult General: Chief complaint: Shortness of Breath/Dyspnea Stated complaint: SOB Time Seen by Provider: 01/28/25 05:15 History of Present Illness: Patient is a 59-year-old female presenting with a chief complaint of shortness of breath. Patient has a history of COPD and has been feeling more short of breath since yesterday. She states she has had a productive cough with discolored sputum. Patient denies chest pain, hemoptysis or painful breathing. She denies any lower extremity edema or asymmetric swelling. Patient does not take blood thinners. Patient has felt nauseated but has not vomited. She states she has had diarrhea once before coming to the emergency department but denies any blood. No dysuria or hematuria. Of note, patient was seen by her primary care physician and started on antibiotics yesterday though patient does not know which ones. Patient also states that she has been feeling short of breath and suspects that her oxygen machine at home is malfunctioning. Related Data Home Medications ?Medication ?Instructions ?Recorded ?Confirmed atorvastatin 40 mg tablet 40 mg PO QPM 01/28/25 01/28/25 buspirone 15 mg tablet 15 mg PO BID 01/28/25 01/28/25 clopidogrel 75 mg tablet 75 mg PO DAILY 01/28/25 01/28/25 furosemide 40 mg tablet 40 mg PO QDAY PRN emesis 01/28/25 01/28/25 lisinopril 40 mg tablet 40 mg PO DAILY 01/28/25 01/28/25 potassium chloride 8 mEq 8 meq PO DAILY PRN emesis 01/28/25 01/28/25 capsule,extended release sertraline 100 mg tablet 100 mg PO DAILY 01/28/25 01/28/25 Previous Rx's ?Medication ?Instructions ?Recorded aspirin 81 mg tablet,delayed 81 mg PO DAILY #30 tabs 09/10/24 release mucus clearing device #1 ea 01/10/25 Spiriva with HandiHaler 18 mcg and 1 cap inhalation DAILY 90 days 01/27/25 inhalation capsules (tiotropium #180 inhalations bromide) albuterol sulfate 90 mcg/actuation 2 puff inhalation Q6H PRN 01/27/25 aerosol inhaler bronchospasm #8.5 grams alprazolam 1 mg tablet 1 mg PO DAILY PRN anxiety #90 tabs 01/27/25 carvedilol 3.125 mg tablet 3.125 mg PO BID #180 tabs 01/27/25 compressor, for nebulizer #1 ea 01/27/25 doxycycline hyclate 100 mg tablet 100 mg PO BID 90 days #180 tabs 01/27/25 ipratropium 0.5 mg-albuterol 3 mg 3 ml inhalation QID PRN wheezing 01/27/25 (2.5 mg base)/3 mL nebulization #180 mL soln montelukast 10 mg tablet 10 mg PO DAILY #90 tabs 01/27/25 (Singulair) nebulizer accessories #1 ea 01/27/25 Allergies Allergy/AdvReac Type Severity Reaction Status Date / Time bupropion (From Zyban) Allergy Intermediate rash Verified 01/28/25 07:24 influenza virus vaccine qs Allergy Intermediate swelling Verified 01/28/25 07:24 [id number] (36 mos, up) (From Fluarix Quad) rofecoxib (From Vioxx) Allergy Intermediate rash Verified 01/28/25 07:24 chocolate Allergy ALGY-Hives Verified 01/28/25 07:24 PFS ED PFSH: Medical History (Updated 01/29/25 @ 03:06 by Lisa Mistry MD) Coronary artery disease of [place] artery of [place] heart with stable angina pectoris Peripheral arterial disease Insomnia Fatty liver Chronic obstructive pulmonary disease, unspecified COPD type Anxiety associated with depression Surgical History History of coronary artery stent placement History of appendectomy H/O abdominal hysterectomy Social History Smoking and tobacco/nicotine status: never used tobacco/nicotine Quit status (tobacco/nicotine): has quit using Year quit tobacco: 2023 Former quit date comment: 07/26/23 Alcohol intake: former Female Reproductive History: Spontaneous abortions: No Physical Exam Narrative: EXAM NARRATIVE: Vitals are reviewed. Initial exam, patient is normotensive, is not tachycardic. Patient has mildly elevated temperature. Patient has SpO2 above 90% on home O2 requirement. Patient has diminished lung sounds and diffuse expiratory wheezing. I do not appreciate any rhonchi or crackles. She has a soft, nondistended nontender abdomen. There is no lower extremity edema or asymmetric swelling. Course Vital Signs: Vital signs: Vital Signs Temperature 97.9 F 01/28/25 23:53 Pulse Rate 69 01/28/25 23:53 Respiratory Rate 16 01/28/25 23:53 Blood Pressure 111/68 01/28/25 23:53 Pulse Oximetry 94 01/28/25 23:53 Oxygen Delivery Me thod Nasal Cannula 01/28/25 23:53 Oxygen Flow Rate 4 01/28/25 23:53 MDM - General Adult Medical Decision Making 59-year-old female presenting with a chief complaint of discolored cough, increasing shortness of breath, suspecting that her machine is malfunctioning, started on antibiotics by her primary care physician. Patient has not had a fever at home and is afebrile in her emergency department though her temperature is a little elevated here. She is not experiencing chest pain, painful respirations, hemoptysis, lower extremity edema or lower extremity asymmetry. On exam, she has diffuse wheezing. Differential diagnosis includes, but is not limited to, COPD exacerbation, pneumonia, viral upper respiratory infection, bronchitis, pneumothorax, COPD exacerbation, PE, CHF, other. On initial exam, patient is hemodynamically stable nontoxic appearing. EKG was personally reviewed and interpreted and shows no STEMI. Patient was evaluated with CBC, CMP, troponin, BNP, lactic acid, COVID and flu screen, EKG, chest x-ray. Patient was treated with DuoNeb, budesonide. Patient received 10 mg of IV dexamethasone in ambulance. Patient has a normal white blood cell count. She does not have any actionable electrolyte abnormalities. She has a mildly elevated BNP. She had echo recently which showed LV systolic function is normal with EF of 60-65%. Shortly after I examined this patient, she became hypotensive. Added blood cultures and lactic acid to evaluation. She was treated w/IV fluids and her blood pressure improved w/fluid administration. I did consider pulmonary embolus in this patient however she denies chest pain, pain with respirations, coughing up blood, lower extremity edema or asymmetry and there is no recent surgery or immobilization. I feel the cause is most likely infectious. I will give her dose of ceftriaxone and azithromycin and admit patient for observation. Lab Data 01/28/25 05:00 01/28/25 05:00 Radiology Impressions Chest X-Ray 01/28/25 05:16 IMPRESSION: No airspace disease. Laboratory Results WBC 9.94 10^3/uL (3.29-11.43) 01/28/25 05:00 RBC 3.81 10^6/uL (3.85-5.65) L 01/28/25 05:00 Hgb 10.80 g/dL (11.27-16.99) L 01/28/25 05:00 Hct 34.7 % (36-47) L 01/28/25 05:00 MCV 91.1 fl (85-98) 01/28/25 05:00 MCH 28.3 pg (27-33) 01/28/25 05:00 MCHC 31.1 g/dL (30-55) 01/28/25 05:00 RDW 13.3 % (12.1-15.1) 01/28/25 05:00 Plt Count 287 10^3/cmm (157-399) 01/28/25 05:00 MPV 9.2 fL (7.4-10.4) 01/28/25 05:00 Neut % (Auto) 80.1 % 01/28/25 05:00 Lymph % (Auto) 12.6 % 01/28/25 05:00 [place] % (Auto) 4.5 % 01/28/25 05:00 Eos % (Auto) 2.4 % 01/28/25 05:00 Baso % (Auto) 0.2 % 01/28/25 05:00 Neut # (Auto) 7.96 10^3/uL (1.8-7.7) H 01/28/25 05:00 Lymph # (Auto) 1.3 10^3/uL (0.8-4.8) 01/28/25 05:00 [place] # (Auto) 0.5 10^3/uL (0.2-0.9) 01/28/25 05:00 Eos # (Auto) 0.2 10^3/uL (0.0-0.8) 01/28/25 05:00 Baso # (Auto) 0.0 10^3/uL (0.0-0.1) 01/28/25 05:00 Nucleated RBC % (auto) 0 % 01/28/25 05:00 Nucleated RBCs # 0.0 /100WBC 01/28/25 05:00 D-Dimer 0.33 ug/mLFEU (0-0.59) 01/28/25 05:00 Sodium 139 mmol/L (136-145) 01/28/25 05:00 Potassium 5.1 mmol/L (3.5-5.1) 01/28/25 05:00 Chloride 94 mmol/L (98-107) L 01/28/25 05:00 Carbon Dioxide 35 mmol/L (22-29) H 01/28/25 05:00 Anion Gap 15.1 (5-19) 01/28/25 05:00 BUN 15 mg/dL (8-23) 01/28/25 05:00 Creatinine 0.6 mg/dL (0.5-0.9) 01/28/25 05:00 GFR Calculation 101.6 mL/min (90-130) 01/28/25 05:00 Glucose 112 mg/dL (65-115) 01/28/25 05:00 Calculated Osmolality 290 mOsm/kg (285-295) 01/28/25 05:00 Lactic Acid 0.9 mmol/L (0.5-2.2) 01/28/25 05:00 Calcium 9.0 mg/dL (8.5-10.5) 01/28/25 05:00 Magnesium 1.7 mg/dL (1.7-2.3) 01/28/25 06:32 Total Bilirubin 0.4 mg/dL (0.15-1.2) 01/28/25 05:00 AST 14 U/L (0-32) 01/28/25 05:00 ALT 13 U/L (0-33) 01/28/25 05:00 Alkaline Phosphatase 113 U/L (35-105) H 01/28/25 05:00 Troponin T Baseline 12 ng/L (0-10) H 01/28/25 05:00 Troponin T 120 Minute 10.57 ng/L (0-10) H 01/28/25 06:32 Delta Troponin T -1.43 ABS# (0-10) L 01/28/25 06:32 NT-Pro-B Natriuret Pep 336 pg/mL (0-125) H 01/28/25 05:00 Total Protein 6.6 g/dL (6.6-8.7) 01/28/25 05:00 Albumin 4.4 g/dL (3.5-5.2) 01/28/25 05:00 Globulin 2.2 g/dL (1.3-4.6) 01/28/25 05:00 Random Cortisol 13.57 ug/dL (2.47-19.5) 01/28/25 06:32 Urine Color Yellow (Yellow) 01/28/25 06:20 Urine Appearance Cloudy (CLEAR) A 01/28/25 06:20 Urine pH 6.0 (5-7) 01/28/25 06:20 Ur Specific [place] 1.018 (1.005-1.030) 01/28/25 06:20 Urine Protein Negative (Negative) 01/28/25 06:20 Urine Glucose (UA) Negative (Normal) 01/28/25 06:20 Urine Ketones Negative (Negative) 01/28/25 06:20 Urine Blood Negative (Negative) 01/28/25 06:20 Urine Nitrate Negative (Negative) 01/28/25 06:20 Urine Bilirubin Negative (Negative) 01/28/25 06:20 Urine Urobilinogen 1.0 mg/dL (Negative) 01/28/25 06:20 Ur Leukocyte Esterase 2+ (Negative) A 01/28/25 06:20 Urine RBC None /hpf (0-2) 01/28/25 06:20 Urine WBC 40-55 /hpf (0-5) H 01/28/25 06:20 Ur Squamous Epith Cells 5-10 /hpf (0-5) H 01/28/25 06:20 Amorphous Sediment Not Reportable 01/28/25 06:20 Urine Bacteria 2+ /hpf (NONE) H 01/28/25 06:20 Urine Mucus Trace /hpf 01/28/25 06:20 Influenza A (PCR) Negative (Negative) 01/28/25 05:20 Influenza Type B (PCR) Negative (Negative) 01/28/25 05:20 RSV (PCR) Negative (Negative) 01/28/25 05:20 SARS-CoV-2 (PCR) Negative (Negative) 01/28/25 05:20 XR interpretation done by ED provider, pending radiology final review EKG Data EKG 1: Interpretation: Normal sinus rhythm with a heart rate of 80, normal axis, normal intervals and no evidence of ST segment elevation. Computer generated interpretation: Chest X-Ray 01/28/25 05:16 IMPRESSION: No airspace disease. Discharge Plan Discharge Patient Disposition: Admitted As Inpatient Admit Provider: Rio Ward Clinical Impression: COPD exacerbation, Acute hypotension, Shortness of breath Pneumonia Qualifiers: Pneumonia type: due to unspecified organism Laterality: unspecified laterality Lung location: unspecified part of lung Qualified Code(s): J18.9 - Pneumonia, unspecified organism Urinary tract infection Qualifiers: Urinary tract infection type: site unspecified Hematuria presence: without hematuria Qualified Code(s): N39.0 - Urinary tract infection, site not specified Condition: Stable Coding Level of Care Code ED Parking Officer for Rama Gomez
[2025-01-28 06:30] LABS: Glucose Urine UA Negative (Normal); Nitrate Urine Negative (Negative); Specific Gravity, Urine 1.018 (1.005-1.030)
[2025-01-28 06:38] LABS: Lactic Sepsis W/Reflex 0.9 mmol/L (0.5-2.2)
[2025-01-28 06:46] LABS: UA Manual Slide Review YES
[2025-01-28 06:47] LABS: Add Urine Microscopic? YES
[2025-01-28 06:57] LABS: Troponin 5 2HR 10.57 ng/L (0-10)
[2025-01-28 07:01] LABS: Troponin 5 2HR Delta -1.43 ABS# (0-10)
--- NOTE | 2025-01-28 07:19 | ECG_ITS ---
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
[2025-01-28] MEDS: cefTRIAXone 1,000 mg SDV 1000 MG IVP (07:28)
--- NOTE | 2025-01-28 08:13 | PM.HP ---
Providers/Chief Complaint Admitting Physician: Rio Ward MD Primary Care Provider: Ronald Alford DO Chief Complaint: SOB History of Present Illness Jesenia Ewing is a 59 year old woman with a history of coronary artery disease (CAD) with prior stent placement, peripheral arterial disease (PAD), fatty liver, chronic obstructive pulmonary disease (COPD), anxiety, and depression presenting to the emergency department for worsening shortness of breath since yesterday. Reports increased dyspnea overnight after her home oxygen concentrator fluctuated between 2?5 L/min; typically uses 4 L/min at baseline and was around 5 L/min due to symptoms. Notes cough with small amount of yellow phlegm. Denies chest pain, hemoptysis, and unilateral leg swelling. Denies dysuria; had diarrhea when she began feeling ill this evening. Feels sick to her stomach and has had reduced oral intake over the last few days; usually drinks about half a gallon of water daily. States she does not drink alcohol anymore. COVID-19, influenza, and respiratory syncytial virus (RSV) swabs were negative. Chest X-ray reportedly without airspace disease. In the ED, she had hypotension (lowest reported 78/44 mmHg); received 2 liters of intravenous fluids. Blood cultures were collected. Breathing treatment and dexamethasone (Decadron) were given. She was empirically started on antibiotics; azithromycin noted initially in ED documentation; current plan references ceftriaxone. EKG interpreted at bedside as sinus rhythm (pending official read). Laboratory results notable for white blood cell count 9.94, hemoglobin 10.8 (mild chronic anemia), platelets 287, chloride 94, creatinine 0.6, blood urea nitrogen 15, glucose 112; sodium and potassium within normal limits. Liver tests (total bilirubin, aspartate aminotransferase [AST], alanine aminotransferase [ALT]) normal. Urinalysis showed white blood cells present, 5?10 squamous epithelial cells, 2+ bacteria, negative nitrites, trace mucus; provider referenced urinary tract infection (UTI). Oxygen saturation 96% on 4 L nasal cannula. Review of Systems Const: Reports: malaise; Denies: fever(s), chills or body aches ENMT: Denies: throat pain Card: Denies: chest pain, edema, pre-syncope or dyspnea on exertion Resp: Reports: dyspnea, productive cough and change in phlegm color; Denies: hemoptysis GI: Denies: abdominal pain, nausea, vomiting, diarrhea, constipation, hematochezia or melena : Denies: flank pain, urinary frequency or hematuria Musc: Denies: back pain, joint swelling or joint redness Skin/Breast: Denies: rash or new lesions Neuro: Denies: headache(s) or confusion Medications/Allergies Home Medications ?Medication ?Instructions ?Recorded ?Confirmed ?Last Taken ?Type aspirin 81 mg tablet,delayed 81 mg PO DAILY #30 tabs 09/10/24 01/28/25 01/27/25 Rx release mucus clearing device #1 ea 01/10/25 01/28/25 Unknown Rx Spiriva with HandiHaler 18 mcg and 1 cap inhalation DAILY 90 days 01/27/25 01/28/25 01/27/25 Rx inhalation capsules (tiotropium #180 inhalations bromide) albuterol sulfate 90 mcg/actuation 2 puff inhalation Q6H PRN 01/27/25 01/28/25 Unknown Rx aerosol inhaler bronchospasm #8.5 grams alprazolam 1 mg tablet 1 mg PO DAILY PRN anxiety #90 tabs 01/27/25 01/28/25 Unknown Rx carvedilol 3.125 mg tablet 3.125 mg PO BID #180 tabs 01/27/25 01/28/25 01/27/25 Rx compressor, for nebulizer #1 ea 01/27/25 01/28/25 Unknown Rx doxycycline hyclate 100 mg tablet 100 mg PO BID 90 days #180 tabs 01/27/25 01/28/25 01/27/25 Rx ipratropium 0.5 mg-albuterol 3 mg 3 ml inhalation QID PRN wheezing 01/27/25 01/28/25 Unknown Rx (2.5 mg base)/3 mL nebulization #180 mL soln montelukast 10 mg tablet 10 mg PO DAILY #90 tabs 01/27/25 01/28/25 01/27/25 Rx (Singulair) nebulizer accessories #1 ea 01/27/25 01/28/25 Unknown Rx atorvastatin 40 mg tablet 40 mg PO QPM 01/28/25 01/28/25 01/27/25 History buspirone 15 mg tablet 15 mg PO BID 01/28/25 01/28/25 01/27/25 History clopidogrel 75 mg tablet 75 mg PO DAILY 01/28/25 01/28/25 01/27/25 History furosemide 40 mg tablet 40 mg PO QDAY PRN emesis 01/28/25 01/28/25 01/27/25 History lisinopril 40 mg tablet 40 mg PO DAILY 01/28/25 01/28/25 01/27/25 History potassium chloride 8 mEq 8 meq PO DAILY PRN emesis 01/28/25 01/28/25 01/27/25 History capsule,extended release sertraline 100 mg tablet 100 mg PO DAILY 01/28/25 01/28/25 01/27/25 History Allergies Allergy/AdvReac Type Severity Reaction Status Date / Time bupropion (From Zyban) Allergy Intermediate rash Verified 01/28/25 07:24 influenza virus vaccine qs Allergy Intermediate swelling Verified 01/28/25 07:24 [id number] (36 mos, up) (From Fluarix Quad) rofecoxib (From Vioxx) Allergy Intermediate rash Verified 01/28/25 07:24 chocolate Allergy ALGY-Hives Verified 01/28/25 07:24 PFSH Acute PFSH: Medical History Coronary artery disease of [place] artery of [place] heart with stable angina pectoris Peripheral arterial disease Insomnia Fatty liver Chronic obstructive pulmonary disease, unspecified COPD type Anxiety associated with depression Surgical History History of coronary artery stent placement History of appendectomy H/O abdominal hysterectomy Social History Smoking and tobacco/nicotine status: never used tobacco/nicotine Quit status (tobacco/nicotine): has quit using Year quit tobacco: 2023 Former quit date comment: 07/26/23 Alcohol intake: former Female Reproductive History: Spontaneous abortions: No Vitals/I&O/Wt Last Vital Signs Temp 99.4 F 01/28/25 05:16 Pulse 78 01/28/25 06:34 Resp 18 01/28/25 06:02 BP 91/54 01/28/25 06:34 Pulse Ox 96 01/28/25 06:34 O2 Del Method Nasal Cannula 01/28/25 06:02 O2 Flow Rate 4 01/28/25 06:02 01/27/25 01/28/25 01/28/25 22:59 06:59 14:59 Intake Total 133.2 / 133.2 Balance 133.2 / 133.2 Weight last 48 hrs Weight 68.039 kg Physical Exam Const: COMMON NORMALS: patient oriented x3 and alert GENERAL APPEARANCE: cooperative ORIENTATION/CONSCIOUSNESS: Yes awake HENMT: COMMON NORMALS: oropharynx normal Neck/C-Spine: COMMON NORMALS: no JVD Resp: COMMON NORMALS: normal respiratory effort and clear to auscultation bilaterally AUSCULTATION: clear to auscultation bilaterally and diminished lung sounds Cardio: COMMON NORMALS: no JVD, regular rhythm, S1 normal heart sound present, S2 normal heart sound present and No murmurs present (Cardio) RHYTHM: regular rhythm HEART SOUNDS: S1 normal heart sound present and S2 normal heart sound present GI: COMMON NORMALS: Normal to inspection, nondistended, normoactive bowel sounds present, Soft to palpation and non-tender PALPATION: Yes Soft to palpation Extremity: COMMON NORMALS: no joint enlargement and no pedal edema Neuro: COMMON NORMALS: patient oriented x3 and moves all extremities SENSORIUM/ORIENTATION: Yes alert Skin: COMMON NORMALS: no rashes or lesions noted GENERAL SKIN EXAM: no rashes or lesions noted Data 01/28/25 05:00 01/28/25 05:00 Micro: Microbiology 01/28/25 06:36 Blood Culture - Preliminary Blood SPECIMEN COLLECTED 01/28/25 06:32 Blood Culture - Preliminary Blood SPECIMEN COLLECTED A&P Assessment and plan 1. COPD exacerbation: Presenting symptom with cough and yellow sputum; viral tests negative; chest X-ray without airspace disease; EKG sinus rhythm. Reviewed vitals, CBC, CMP, NT proBNP, troponin, influenza, COVID, RSV nasal swab, chest x-ray, ED provider, discussed with ED provider. ED noted diffuse wheezing; treated with bronchodilators and dexamethasone; lungs improved on re-exam. Had not responded to outpatient antibiotics started by PCP. - Treat severe exacerbation of COPD with dyspnea, purulent sputum production, cough. - Continue intravenous corticosteroid (Decadron) (monitor for risks noted below). - Ceftriaxone - Continue breathing treatments. - Obtain sputum culture if able to provide. - Continue oxygen support. RT to assess and treat. 2. Hypotension: Lowest reported 78/44 mmHg in ED; improved after 2 L IV fluids; current readings improved (e.g., 91/54; later 99/59). Reviewed troponin, EKG my interpretation with sinus rhythm, pending official read. - Monitor blood pressures. - Hold antihypertensive and diuretic medications for now. - Check serum cortisol level (to assess stress response). - Check D-dimer; if abnormal, consider imaging as discussed. Plan: Possible urinary tract infection (UTI) : Urinalysis with white blood cells and 2+ bacteria; nitrites negative; provider referenced UTI. - Continue ceftriaxone. - Follow up urine culture. Mild chronic anemia : Hemoglobin 10.8 referenced as mild chronic anemia. - Reassess chemistry and renal function. Follow-up : Hospital course and diagnostics outlined; room assignment in progress. - Reassess chemistry and renal function. - Continue empiric ceftriaxone. - Monitor for risk of hyperglycemia, hypertension, gastritis, encephalopathy while on corticosteroids. PDMP PDMP Reviewed: Not Reviewed Attestations Medical Necessity Statement*: Place in observation for additional assessment management of COPD exacerbation unresponsive to outpatient antibiotic, episode of hypotension. Diagnoses COPD exacerbation J44.1 Hypotension I95.9
[2025-01-28 09:16] LABS: Magnesium 1.7 mg/dL (1.7-2.3)
[2025-01-28 11:35] LABS: Troponin 5 6HR 7.41 ng/L (0-10); Troponin 5 6HR Delta -4.59 ng/L (0-12)
[2025-01-28] MEDS: methylPREDNISolone sod succ 40 mg/mL INJ 30 MG IVP ×2 (14:38→20:55)
[2025-01-29] VITALS (7 sets, daily range): BP systolic 98–112; BP diastolic 64–69; PULSE 63–100; RESP 14–18; TEMP 36.6–36.8; O2SAT 95–98
[2025-01-29] MEDS: methylPREDNISolone sod succ 40 mg/mL INJ 30 MG IVP ×2 (02:15→08:28)
[2025-01-29 05:12] LABS: Hematocrit 33.6 % (36-47); Hemoglobin 10.30 g/dL (11.27-16.99); Mean Corpuscular HGB Conc 30.7 g/dL (30-55); Mean Corpuscular Hemoglobin 28.1 pg (27-33); Mean Corpuscular Volume 91.6 fl (85-98); Nucleated Red Blood Cells % 0 %; Platelet Count 226 10^3/cmm (157-399); Red Blood Count 3.67 10^6/uL (3.85-5.65); White Blood Count 5.53 10^3/uL (3.29-11.43)
[2025-01-29 05:31] LABS: Alanine Aminotransferase 10 U/L (0-33); Albumin Level 4.0 g/dL (3.5-5.2); Alkaline Phosphatase 98 U/L (35-105); Anion Gap 10.8 (5-19); Aspartate Amino Transferase 10 U/L (0-32); Blood Urea Nitrogen 12 mg/dL (8-23); Calcium 8.9 mg/dL (8.5-10.5); Carbon Dioxide 37 mmol/L (22-29); Chloride 97 mmol/L (98-107); Creatinine Clr Calc Pharmacy 129.6461; Globulin 2.5 g/dL (1.3-4.6); Glucose 159 mg/dL (65-115); Osmolality Calculated 293 mOsm/kg (285-295); Potassium 4.8 mmol/L (3.5-5.1); Sodium 140 mmol/L (136-145); Total Protein 6.5 g/dL (6.6-8.7)
--- NOTE | 2025-01-29 08:07 | PM.DCS ---
Discharge Providers Date of Admission: 01/28/25 10:18 Date of Discharge: January 29, 2025 Attending Provider at Admission: Rio Ward MD Attending Provider at Discharge: Ross Morgan Primary Care Provider: Ronald Alford DO Diagnoses at Discharge Discharge Diagnosis 1. COPD exacerbation: 2. Hypotension, unspecified hypotension type: Reason for Visit Reason for Visit: SOB Brief History: Jesenia Ewing is a 59 year old woman with a history of coronary artery disease (CAD) with prior stent placement, peripheral arterial disease (PAD), fatty liver, chronic obstructive pulmonary disease (COPD), anxiety, and depression presenting to the emergency department for worsening shortness of breath since yesterday. Reports increased dyspnea overnight after her home oxygen concentrator fluctuated between 2?5 L/min; typically uses 4 L/min at baseline and was around 5 L/min due to symptoms. Notes cough with small amount of yellow phlegm. Denies chest pain, hemoptysis, and unilateral leg swelling. Denies dysuria; had diarrhea when she began feeling ill this evening. Feels sick to her stomach and has had reduced oral intake over the last few days; usually drinks about half a gallon of water daily. States she does not drink alcohol anymore. COVID-19, influenza, and respiratory syncytial virus (RSV) swabs were negative. Chest X-ray reportedly without airspace disease. In the ED, she had hypotension (lowest reported 78/44 mmHg); received 2 liters of intravenous fluids. Blood cultures were collected. Breathing treatment and dexamethasone (Decadron) were given. She was empirically started on antibiotics; azithromycin noted initially in ED documentation; current plan references ceftriaxone. EKG interpreted at bedside as sinus rhythm (pending official read). Laboratory results notable for white blood cell count 9.94, hemoglobin 10.8 (mild chronic anemia), platelets 287, chloride 94, creatinine 0.6, blood urea nitrogen 15, glucose 112; sodium and potassium within normal limits. Liver tests (total bilirubin, aspartate aminotransferase [AST], alanine aminotransferase [ALT]) normal. Urinalysis showed white blood cells present, 5?10 squamous epithelial cells, 2+ bacteria, negative nitrites, trace mucus; provider referenced urinary tract infection (UTI). Oxygen saturation 96% on 4 L nasal cannula. Hospital Course Hospital Course After boluses her hypotension improved, she did not require any further boluses or IV fluid. Antihypertensives were held and she is asked to discontinue lisinopril and hold carvedilol for now, monitor blood pressures at home. Use Lasix only as needed but be cautious/reduce water intake as she drinks about a half a gallon of water a day. She is asked to follow-up with primary provider - please reassess. Consider if she may resume dose carvedilol at some point. Avoid hypotension. She was treated for exacerbation of COPD with Solu-Medrol, ceftriaxone, neb treatments. She reports she is feeling better today and request to return home. Prednisone taper is given at discharge. She is also going to be set up with a nebulizer at home and DuoNebs as needed in addition to her inhalers. She had recently had a visit with the gluer and wedger and intends to continue follow-up. Physical Exam Narrative: She is awake, alert, pleasant, conversant. Sitting up in bed. Has ambulated earlier back and forth to the restroom. Reports he is feeling better. Requests return home today. Const: COMMON NORMALS: patient oriented x3 and alert GENERAL APPEARANCE: cooperative ORIENTATION/CONSCIOUSNESS: Yes awake HENMT: COMMON NORMALS: oropharynx normal Neck/C-Spine: COMMON NORMALS: no JVD Resp: COMMON NORMALS: normal respiratory effort and clear to auscultation bilaterally AUSCULTATION: clear to auscultation bilaterally OTHER: Minimal wheeze RLL Cardio: COMMON NORMALS: no JVD, regular rhythm, S1 normal heart sound present, S2 normal heart sound present and No murmurs present (Cardio) RHYTHM: regular rhythm HEART SOUNDS: S1 normal heart sound present and S2 normal heart sound present GI: COMMON NORMALS: Normal to inspection, nondistended, normoactive bowel sounds present, Soft to palpation and non-tender PALPATION: Yes Soft to palpation Extremity: COMMON NORMALS: no joint enlargement and no pedal edema Neuro: COMMON NORMALS: patient oriented x3 and moves all extremities SENSORIUM/ORIENTATION: Yes alert Skin: COMMON NORMALS: no rashes or lesions noted GENERAL SKIN EXAM: no rashes or lesions noted Discharge Data Studies Completed and Pending Completed Studies During Hospitalization Category Date Time Status XR chest 1V portable [id number] Stat Exams 01/28/25 05:16 Completed Pending at discharge Category Date Time Status Blood Culture Stat Lab 01/28/25 06:36 Results Complete Blood Count w/Auto AM LABS Lab 01/30/25 04:00 Ordered Complete Blood Count w/Auto AM LABS Lab 01/31/25 04:00 Ordered Comprehensive Metabolic Panel AM LABS Lab 01/30/25 04:00 Ordered Comprehensive Metabolic Panel AM LABS Lab 01/31/25 04:00 Ordered Sputum Culture and Gram Stain Routine Lab 01/28/25 08:53 Uncollected Urine Culture Stat Lab 01/28/25 06:20 Received Radiology Impressions Chest X-Ray 01/28/25 05:16 IMPRESSION: No airspace disease. Laboratory Results WBC 5.53 10^3/uL (3.29-11.43) 01/29/25 04:39 RBC 3.67 10^6/uL (3.85-5.65) L 01/29/25 04:39 Hgb 10.30 g/dL (11.27-16.99) L 01/29/25 04:39 Hct 33.6 % (36-47) L 01/29/25 04:39 MCV 91.6 fl (85-98) 01/29/25 04:39 MCH 28.1 pg (27-33) 01/29/25 04:39 MCHC 30.7 g/dL (30-55) 01/29/25 04:39 RDW 13.2 % (12.1-15.1) 01/29/25 04:39 Plt Count 226 10^3/cmm (157-399) 01/29/25 04:39 MPV 9.1 fL (7.4-10.4) 01/29/25 04:39 Neut % (Auto) 90.0 % 01/29/25 04:39 Lymph % (Auto) 8.9 % 01/29/25 04:39 [place] % (Auto) 0.5 % 01/29/25 04:39 Eos % (Auto) 0.0 % 01/29/25 04:39 Baso % (Auto) 0.2 % 01/29/25 04:39 Neut # (Auto) 4.98 10^3/uL (1.8-7.7) 01/29/25 04:39 Lymph # (Auto) 0.5 10^3/uL (0.8-4.8) L 01/29/25 04:39 [place] # (Auto) 0.0 10^3/uL (0.2-0.9) L 01/29/25 04:39 Eos # (Auto) 0.0 10^3/uL (0.0-0.8) 01/29/25 04:39 Baso # (Auto) 0.0 10^3/uL (0.0-0.1) 01/29/25 04:39 Nucleated RBC % (auto) 0 % 01/29/25 04:39 Nucleated RBCs # 0.0 /100WBC 01/29/25 04:39 D-Dimer 0.33 ug/mLFEU (0-0.59) 01/28/25 05:00 Sodium 140 mmol/L (136-145) 01/29/25 04:39 Potassium 4.8 mmol/L (3.5-5.1) 01/29/25 04:39 Chloride 97 mmol/L (98-107) L 01/29/25 04:39 Carbon Dioxide 37 mmol/L (22-29) H 01/29/25 04:39 Anion Gap 10.8 (5-19) 01/29/25 04:39 BUN 12 mg/dL (8-23) 01/29/25 04:39 Creatinine 0.4 mg/dL (0.5-0.9) L 01/29/25 04:39 GFR Calculation 162.3 mL/min (90-130) H 01/29/25 04:39 Glucose 159 mg/dL (65-115) H 01/29/25 04:39 Calculated Osmolality 293 mOsm/kg (285-295) 01/29/25 04:39 Lactic Acid 0.9 mmol/L (0.5-2.2) 01/28/25 05:00 Calcium 8.9 mg/dL (8.5-10.5) 01/29/25 04:39 Magnesium 1.7 mg/dL (1.7-2.3) 01/28/25 06:32 Total Bilirubin 0.3 mg/dL (0.15-1.2) 01/29/25 04:39 AST 10 U/L (0-32) 01/29/25 04:39 ALT 10 U/L (0-33) 01/29/25 04:39 Alkaline Phosphatase 98 U/L (35-105) 01/29/25 04:39 Troponin T Baseline 12 ng/L (0-10) H 01/28/25 05:00 Troponin T 120 Minute 10.57 ng/L (0-10) H 01/28/25 06:32 Delta Troponin T -1.43 ABS# (0-10) L 01/28/25 06:32 Troponin T Hi Sens 6Hr 7.41 ng/L (0-10) 01/28/25 11:11 Troponin T Hi Sens 6Hr Delta -4.59 ng/L (0-12) L 01/28/25 11:11 NT-Pro-B Natriuret Pep 336 pg/mL (0-125) H 01/28/25 05:00 Total Protein 6.5 g/dL (6.6-8.7) L 01/29/25 04:39 Albumin 4.0 g/dL (3.5-5.2) 01/29/25 04:39 Globulin 2.5 g/dL (1.3-4.6) 01/29/25 04:39 Random Cortisol 13.57 ug/dL (2.47-19.5) 01/28/25 06:32 Urine Color Yellow (Yellow) 01/28/25 06:20 Urine Appearance Cloudy (CLEAR) A 01/28/25 06:20 Urine pH 6.0 (5-7) 01/28/25 06:20 Ur Specific [place] 1.018 (1.005-1.030) 01/28/25 06:20 Urine Protein Negative (Negative) 01/28/25 06:20 Urine Glucose (UA) Negative (Normal) 01/28/25 06:20 Urine Ketones Negative (Negative) 01/28/25 06:20 Urine Blood Negative (Negative) 01/28/25 06:20 Urine Nitrate Negative (Negative) 01/28/25 06:20 Urine Bilirubin Negative (Negative) 01/28/25 06:20 Urine Urobilinogen 1.0 mg/dL (Negative) 01/28/25 06:20 Ur Leukocyte Esterase 2+ (Negative) A 01/28/25 06:20 Urine RBC None /hpf (0-2) 01/28/25 06:20 Urine WBC 40-55 /hpf (0-5) H 01/28/25 06:20 Ur Squamous Epith Cells 5-10 /hpf (0-5) H 01/28/25 06:20 Amorphous Sediment Not Reportable 01/28/25 06:20 Urine Bacteria 2+ /hpf (NONE) H 01/28/25 06:20 Urine Mucus Trace /hpf 01/28/25 06:20 Influenza A (PCR) Negative (Negative) 01/28/25 05:20 Influenza Type B (PCR) Negative (Negative) 01/28/25 05:20 RSV (PCR) Negative (Negative) 01/28/25 05:20 SARS-CoV-2 (PCR) Negative (Negative) 01/28/25 05:20 Vitals Last Vital Signs Temp 98.3 F 01/29/25 07:31 Pulse 78 01/29/25 07:31 Resp 17 01/29/25 07:31 BP 98/64 01/29/25 07:31 Pulse Ox 97 01/29/25 07:31 O2 Del Method Nasal Cannula 01/29/25 07:31 O2 Flow Rate 4 01/29/25 04:00 Discharge Plan Discharge Patient Disposition: Home Condition: Stable Prescriptions: New ipratropium-albuterol 0.5 mg-3 mg(2.5 mg base)/3 mL Solution For Nebulization 3 ml inhalation Q6H PRN (Reason: Shortness Of Breath) Qty: 90 3RF prednisone 20 mg tablet 20 mg PO DAILY Qty: 20 0RF Rx Instructions: 3 tab daily for 3 days, then 2 tab for 3 days, then 1 tab for 3 days, then 1/2 tab for 4 days. Continued (DME) mucus clearing device Device See Rx Instructions .MEDSUPPLY Qty: 1 0RF Rx Instructions: As directed doxycycline hyclate 100 mg tablet 100 mg PO BID 90 Days Qty: 180 1RF montelukast [Singulair] 10 mg tablet 10 mg PO DAILY Qty: 90 3RF alprazolam 1 mg tablet 1 mg PO DAILY PRN (Reason: anxiety) Qty: 90 1RF albuterol sulfate 90 mcg/actuation HFA aerosol inhaler 2 puff INHALATION Q6H PRN (Reason: bronchospasm) Qty: 8.5 5RF tiotropium bromide [Spiriva with HandiHaler] 18 mcg capsule, w/inhalation device 1 cap INHALATION DAILY 90 Days Qty: 180 3RF Rx Instructions: puncture 1 cap using device; one dose = 2 inhalations (DME) nebulizer accessories Kit See Rx Instructions .Route Qty: 1 5RF Rx Instructions: Please issue compressor, hose, mask, chambers to use q6h as needed for shortness of breath and mucous plugging. (DME) compressor, for nebulizer Device See Rx Instructions .ROUTE .MEDSUPPLY Qty: 1 0RF Rx Instructions: As directed ipratropium-albuterol 0.5 mg-3 mg(2.5 mg base)/3 mL solution for nebulization 3 ml inhalation QID PRN (Reason: wheezing) Qty: 180 5RF aspirin 81 mg tablet,delayed release (DR/EC) 81 mg PO DAILY Qty: 30 0RF furosemide 40 mg tablet 40 mg PO QDAY PRN (Reason: emesis) atorvastatin 40 mg tablet 40 mg PO QPM potassium chloride 8 mEq capsule, extended release 8 meq PO DAILY PRN (Reason: emesis) Rx Instructions: Take every time you take a Furosemide. sertraline 100 mg tablet 100 mg PO DAILY clopidogrel 75 mg tablet 75 mg PO DAILY buspirone 15 mg tablet 15 mg PO BID Held carvedilol 3.125 mg tablet 3.125 mg PO BID Qty: 180 3RF Hold Instructions: Resume on 02/12/25. Discontinued lisinopril 40 mg tablet 40 mg PO DAILY Discharge Order = DC NOW: Discharge Order (Routine); Ordered 01/29/25 Ordered By: Ross Morgan Other Ambulatory Orders: DME: Nebulizer with Neb Kit (Order) Location: None Selected Ordered By: Ross Morgan Referrals: Ronald Alford DO [Primary Care Provider, [facility]] - 02/04/25 10:00 am Referral Note: Discharge Diet: Cardiac Patient Instructions: Prednisone (By mouth), COPD (Chronic Obstructive Pulmonary Disease) (GEN), Hypotension (GEN), Patient Portal & Sheila Instructions Activity Restrictions/Additional Instructions: Please discontinue lisinopril. Please hold carvedilol for now until resumed by your primary provider. Take Lasix (furosemide) only as needed in case of developing lower extremity edema, rapid weight gain of more than 3 pounds in 2 days, getting short of breath laying down flat on your back, or other symptoms of congestive heart failure. Avoid drinking too much water, limit to less than 1 to 1-1/2 quarts of liquids in a day. This should help preempt the need for the water pill (Lasix). Monitor blood pressures at home. Avoid low blood pressures. Long-term target blood pressure of 120/80 and no higher than 130/90. Complete prednisone taper. Use nebulizer as needed up to 4-6 times a day if needed for wheezing and/or shortness of breath with COPD. Complete antibiotic course prescribed by primary provider. Follow-up with your primary provider for reassessment after COPD exacerbation. Follow-up with pulmonology. Seek medical attention in case of any worsening or new concerning symptoms. Discharge Attestations Time Spent in Discharge Care*: greater than 30 min Quality Metrics Clinical Quality Measures [ No reported AMI, CVA or VTE this stay] Coding Level of Care Code 22713 Total time (in minutes) for Discharge: 40 Diagnoses COPD exacerbation J44.1 Hypotension, unspecified hypotension type I95.9 Hypotension type: unspecified hypotension type
--- NOTE | 2025-01-29 10:32 | PC.CHAP ---
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 machine operator visit [] Patient/Family/Request visit [] Outpatient visit [] Follow-up visit [] Physician referral [] Code/Alert [x] Routine visit [] Staff referral [] Actively dying [] Patient sleeping [] Family support [] [] Out of room [] Palliative care [] [] Receiving care in room [] Pre-surgical visit [] Trauma [] Long length of stay [] ICU visit [] Other: Relational/Emotional Strength [x] Patient feels connected with others/family/visitors/staff [] Distress [] Loneliness/isolation [] Abandonment Spirituality of Patient [x] Person of Catarina [] Attends Cheondoism of their Catarina [x] Believes in Prayer [] Reads Bible or Mormon materials [] There are Spiritual issues to be addressed Production Miner Interventions [x] Prayer [] Active listening [] Non-anxious presence [x] Spiritual/emotional support [] Crisis/trauma care [] Spiritual counseling [] Bereavement support [] Provided bereavement packet [] Provided Bible/devotional materials [] Provided toy/stuffed animal, coloring book to patient or family member [] Provided Communion [] Anointing/[place] [] Salvation [x] Completed spiritual assessment [] Other: Impact on Illness or Injury [] Angry [] Fearful [] Anxious [] Often cries [] Exhaustion [] Unable to work [] Unable to attend yarsanism [] Unable to walk/stand [] Unable to read [] Unable to drive [] Unable to eat/drink [] Unable to sleep [] Unable to be with family [] Patient intubated [] Other: Summary Time spent with patient 5 min
--- NOTE | 2025-01-29 11:26 | PC.NURSE ---
Discussed discharge with patient as well as follow up appointment, new medications (explained prednisone taper), hold medications and discontinued medications. Discussed blood pressure parameters, weighing self and when to take lasix. Patient verbalized understanding.
== END 2025-01-29 12:15 | disposition home or self-care (01) ==
LOC: ER 06:33 → MEDSURG 10:11
PROVIDERS: Admitting Provider Student in an Organized Health Care Education/Training Program; Emergency Provider Emergency Medicine; PCP Family Medicine; Visit Provider Internal Medicine
DX: J44.1 Chronic obstructive pulmonary disease with (acute) exacerbation (principal); I95.9 Hypotension, unspecified; Z79.82 Long term (current) use of aspirin; I25.118 Atherosclerotic heart disease of native coronary artery with other forms of angina pectoris; I73.9 Peripheral vascular disease, unspecified; F41.8 Other specified anxiety disorders; Z95.5 Presence of coronary angioplasty implant and graft; Z87.891 Personal history of nicotine dependence
CPT/HCPCS: 36415; 71045; 80053; 81001; 82533; 83605; 83735; 83880; 84484; 85025; 85378; 87040; 87086; 87637; 93005; 94640; 96372; 96374; 96375; 99285; G0378; J0696; J1650; J2405; J2919; J7030; J7626; J9999; Q0144

== ENCOUNTER 2025-04-01 11:41 | Outpatient (CLI) | payer MEDICARE, SELFPAY ==
--- NOTE | 2025-04-01 11:40 | MM_ITS ---
WS: [id number] BILATERAL SCREENING DIGITAL TOMOSYNTHESIS MAMMOGRAM WITH CAD HISTORY: SCREENING COMPARISON: 06/15/2021 Bilateral CC and MLO views with tomosynthesis and synthetic mammography submitted. Computer aided detection analyzed. Breast composition: There are scattered areas of fibroglandular density. No suspicious masses, microcalcifications or architectural distortion. Benign calcifications in the anterior LEFT breast. MM/MM scr BI tomosynthesis [id number] IMPRESSION: BI-RADS: 2 - Benign. FOLLOW UP: 1 Year Follow-up
== END 2025-04-01 11:42 | disposition home or self-care (01) ==
LOC: MOBLMAM 11:43
PROVIDERS: PCP Family Medicine; Visit Provider Family Medicine
DX: Z12.31 Encounter for screening mammogram for malignant neoplasm of breast (principal); R92.323 Mammographic fibroglandular density, bilateral breasts; R92.1 Mammographic calcification found on diagnostic imaging of breast
CPT/HCPCS: 77063; 77067